=== PATIENT | female | born 1970 | race Caucasian/White ===

== ENCOUNTER 2017-12-30 13:38 | Emergency (ER) | payer BC, MEDICARE ==
--- OUTSIDE RECORDS SUMMARY | 2017-12-30 14:08 | XMS REPORT ---
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 [address] Group Name: [employer] [place] [address] PayID: [id number] Medigap Part B Effective: Policy Number: Aetna(Open Choice) Talib Thompson 2012 [id number] Expires: 2013 Group Number: [id number] [address] PayID: [id number] [place] [address] Medigap Part B Effective: 2013 Policy Number: Melisa [facility] Richard Thompson [id number] Group Number: [id number] [address] [address] Group Name: [place] [address] PayID: [id number] Medicare Primary Effective: Policy Number: Medicare - Bswny Richard Thompson 2006 [id number] Umd PayID: [id number] [address] [place] [address] Problems Date Description Provider Status Onset: 05/27/2012 Rheumatoid arthritis Shawnti R. 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 Social History Type Date Description Comments Marital Status Lives With Spouse Lives With Son 2 sons Celia and Noam, daughter is in [place] Diet Healthy, Well Balanced "sucks shit" she eats toast, yogurt, apple sauce, green jello, pasta with occasional mariya, pizza, mashed potatoes, rice, stir adair vegetables, has a hard time digestiong meat, she does eat eggs, beans Pets several cats currently 4 cats, 1 dog Occupation Disabled Cigarette Use current cigarette smoker less than 5 ciggs daily ETOH Use Denies alcohol use Recreational Drug Use Sporadically uses Marijuana Smoking Patient is a current smoker, smokes every day Allergies, Adverse Reactions, Alerts Date Description Reaction Status Severity Comments 01/30/2012 Penicillins active 01/30/2012 Watts active 01/30/2012 Papaya active 01/30/2012 Bee Sting active 01/30/2012 Humira active 01/30/2012 Enbrel active 01/30/2012 Albuterol active jitters/tachycardia 03/29/2012 Hydrocodone active rash/hives/itchy mouth Medications Medication Date Status Form Strength Qnty SIG Indications Ordering Provider Bethanechol 09/04 Active Tablets 25mg 120ta take 1 K31.84 Shawnti Liv. Chloride bs tablet by popeye Bailey four [employer]ADEMIC ASSISTANT-C times daily - before meals & nightly. Pulmicort 07/16 Active Aerosol 180mcg/Ac 1unit inhale 1 Shawgei Isaura Flexhaler t s puff by popeye Bailey 2 [employer]ADEMIC ASSISTANT-C times per day for asthma Tizanidine HCL 06/02 Active Tablets 4mg 30tab take 1/2-1 M25.512 Angel s tablet by Morgan mouth III, [employer]ADEMIC ASSISTANT-C every 8 hours as needed for muscle spasm Vitamin D 05/21 Active Capsules [id number] 14cap take 1 Satyawgei R. (Ergocalciferol) s capsule by Leo mouth [employer]ADEMIC ASSISTANT-C weekly Acyclovir 12/30 Active Tablets 400mg 90tab take 1 Shawnti R. /2017 s tablet by Leo mouth 3 [employer]ADEMIC ASSISTANT-C times a day Ketoconazole 12/29 Active Cream 2% 60gm apply to B37.9 Satyawnti R. /2016 rash on , breast/abd [employer]IC ASSISTANT-C omen every day as needed Omeprazole 09/[address] 20mg 30cap 1 by mouth Shawnti R. s twice [facility], daily [employer]AD[employer]IC ASSISTANT-C Singulair 06/26 Active Tablets 10mg 30tab Take 1 J45.902 wnti R. s Tablet By Storm, Mouth [employer]ADEMIC ASSISTANT-C Every Night AT Bedtime For Asthma/All ergies Xopenex HFA 11/28 Active Aerosol 45mcg/Act 15uni Take 2 J20.9 wnti R. ts Puffs [facility], Every 4 To ACADEMIC ASSISTANT-C 6 Hours as Needed For Shortness Of Breath , Wheeze Or Cough Flonase Allergy 06/22 Active Suspension 50mcg/Act 48uni use 2 Shawnti R. ts sprays in [facility], each [employer]ADEMIC ASSISTANT-C nostril every day Nebulizer 04/05 Active Device 1unit use with J44.9 wnti R. s albuterol [facility], for [employer]IC ASSISTANT-C breathing dx:j44.9 Soma 03/23 Active Tablets 350mg 60tab 1 by mouth M54.9 Shawnti R. /2014 s two times [facility], a day as [employer]ADEMIC ASSISTANT-C needed muscle spasm Wellbutrin XL 02/01 Active Tablets ER 300mg 30tab Take 1 wnti R. 24HR s Tablet By [facility], Mouth ACADEMIC ASSISTANT-C Every Morning For Depression And Smoking Xopenex 12/05 Active Nebulizer 1.25mg/3M 72ml one vial J20.9 wnti R. L via [facility], nebulizer ACAD[employer]IC ASSISTANT-C every 4 hours if needed for breathing Zofran Odt 11/16 Active Tablets 8mg 60tab take 1 R07.9 Shawnti R. /2014 Dispers s tablet by Storm, mouth 3 [employer]ADEMIC ASSISTANT-C times a day as needed for nausea Levothyroxine 09/25 Active Tablets 25mcg 90tab Take One Shawnti R. s Tablet By Storm, Mouth [employer]ADEMIC ASSISTANT-C Every Day DO Not Take With Vitamins Valacyclovir HCL 04/06 Active Tablets 1gm 21tab 1 by mouth B02.9 Shawnti R. /2013 s three Storm, times ACADEMIC ASSISTANT-C daily for 7 days Ipratropium 03/08 Active Solution 0.02% 150ml one vial J18.9 nti R. via Storm, nebulized [employer] ASSISTANT-C treatment four times a day as needed breathing Bentyl 11/26 Active Tablets 20mg 120ta 1 by mouth wnti R. bs four times Storm, a day as [employer] ASSISTANT-C needed stomach pain/bloat ing Levalbuterol HCL 06/11 Active Nebulizer 1.25mg/3M 25uni use one nti R. L ts vial in Storm, nebulizer [employer]AD[employer]IC ASSISTANT-C q4hr as needed shortness of breath, wheeze Valium 01/29 Active Tablets 5mg 40for 1po twice R ty a day as Storm, needed [employer]AD[employer]IC ASSISTANT-C panic/anxi ety Epipen 2-Tu 01/29 Active Solution 0.3mg/0.3 6unit use if R Auto-Inject ML s needed for Storm, bee sting ACADEMIC ASSISTANT-C Topamax 01/29 Active Tablets 100mg 180ta take 1 R bs tablet by Storm, mouth [employer]ADEMIC ASSISTANT-C twice a day Gabapentin 01/29 Active Capsules 300mg 240ca take 2 ps capsules Storm, by mouth 4 ACADEMIC ASSISTANT-C times a day Tudorza Pressair Active Aerosol 400mcg/Ac bid Perry, t Sarthak FLORES Oxycodone HCL Active Capsules 5mg 10cap 1 by mouth wnti R. s five times [facility], daily for ACADEMIC ASSISTANT-C pain Plaquenil Active Tablets 200mg 2 tabs by Unknown /0000 mouth every day for one week, and then 1 tab by mouth every day after that. Methotrexate Active Solution 50mg/2ML Inject Unknown Sodium (PF) once a week on Thursday. In abdomen. Leflunomide Active Tablets 20mg Take 1 Unknown /0000 Tablet By Mouth Every Day Folic Acid Active Tablets 1mg 1 by mouth Unknown /0000 every day Bactrim DS 12/01 Hx Tablets 800-160mg 20tab 1 by mouth L02.219 wnti R. /2017 s twice a Storm, - day for [employer]IC ASSISTANT-C 12/18 infection Bactrim DS 09/04 Hx Tablets 800-160mg 6tabs 1 by mouth J01.90 Shawnti R. /2017 twice a Storm, - day for [employer]IC ASSISTANT-C 09/14 infection Bactroban 09/04 Hx Cream 2% 30gm apply to J01.90 Shawnti R. /2018 affected Storm, - area three [employer]ADEMIC ASSISTANT-C 12/18 times a day as needed Doxycycline 08/19 Hx Tablets 100mg 20tab 1 tab by J01.90 Kj Hyclate /2017 s mouth [place], - twice a MD 09/04 day Bactroban 07/16 Hx Cream 2% 30gm apply to L66.2 Shawnti R. affected Storm, - area three [employer]ADEMIC ASSISTANT-C 09/04 times a day as needed Flovent HFA 07/09 Hx Aerosol 220mcg/Ac 12uni inhale one Shawnti R. t ts puff by Storm, - mouth [employer]ADEMIC ASSISTANT-C 07/16 twice a day Pulmicort 05/26 Hx Aerosol 180mcg/Ac 1unit inhale 1 Shawnti R. Flexhal t s puff by Storm, - mouth 2 [employer]ADEMIC ASSISTANT-C 07/09 times per day for asthma Bentyl 05/06 Hx Capsules 10mg 120ca 1 by mouth Shawnti R. /2016 ps four times Storm, - a day as ACADEMIC ASSISTANT-C 05/11 needed stomach pain/bloat ing Bactrim DS 11/06 Hx Tablets 800-160mg 20tab 1 by mouth L03.90 Shawnti R. /2017 s twice a Storm, - day for [employer]IC ASSISTANT-C 11/16 infection Ranitidine 150 07/02 Hx Tablets 150mg 60tab 1 by mouth Shawnti R. Maximum Strength s twice Storm, - daily for [employer]ADEMIC ASSISTANT-C 09/05 stomach acid Zyrtec Allergy 06/20 Hx Tablets 10mg 90tab 1 by mouth J30.9 Shawnti R. /2016 s daily for Storm, - allergies ACADEMIC ASSISTANT-C 07/02 Lansoprazole 06/[address] 30mg 30cap 1 po Becca R. s daily..... Storm, - .or PPI of ACADEMIC ASSISTANT-C 09/05 company's choice Omeprazole 06/[address] 40mg 90cap 1 by mouth Becca RSerena s every day Storm, - for [employer]ADEMIC ASSISTANT-C 06/20 gastritis Doxycycline 06/17 Hx Tablets 100mg 20tab 1 tab by J20.9 Angel Hyrachel s mouth Morgan - twice a III, ACADEMIC ASSISTANT-C Prednisone 06/17 Hx Tablets 20mg 20tab 3 by mouth J20.9 Angel s every day Rock - x 3days, 2 III, ACADEMIC ASSISTANT-C 09/05 by mouth every day x 3 days, 1 by mouth every day x 3 days, 1/2 by mouth every day x 4 days Guaifenesin ac 06/17 Hx Syrup 100-10mg/ 200un take 1-2 J20.9 Angel 5ML its teaspoon Morgan - by mouth III, ACADEMIC ASSISTANT-C 09/05 at bedtime for cough Chantix Starting 05/15 Hx Tablets 0.5mg X 60tab one by Becca Carter 11 & 1 mg s mouth Storm, - X 42 twice a ACADEMIC ASSISTANT-C , per package directions Prednisone 05/01 Hx Tablets 20mg 20tab 3 by mouth J20.9 Becca Delarosa s every day Storm, - x 3days, 2 ACADEMIC ASSISTANT-C 05/11 by mouth every day x 3 days, 1 by mouth every day x 3 days, 1/2 by mouth every day x 4 days Cheratussin ac 05/01 Hx Syrup 100-10mg/ 236ml 1 or 2 J20.9 Becca Delarosa 5ML teaspoon Storm, - by mouth ACADEMIC ASSISTANT-C 05/11 q4hr needed cough Nebulizer Kit 04/11 Hx use as Becca Delarosa directed Storm, - ACADEMIC ASSISTANT-C 09/05 Doxycycline 03/06 Hx Tablets 100mg 20tab 1 tab by Becca Steele s mouth Storm, - twice a ACADEMIC ASSISTANT-C Azithromycin 03/03 Hx Tablets 250mg 6tabs take 2 J44.1 Kj tablets by Jordy, - mouth one 05/01 time then take one daily for 4 days Prednisone 02/25 Hx Tablets 20mg 13tab 3 by mouth R09.1 Shawnti R. s every day , - x 2days, 2 ACADEMIC ASSISTANT-C 05/01 by mouth every day x 2 days, 1 by mouth every day x 2 days, 06/02 by mouth every day x 2 days Azithromycin 11/29 Hx Tablets 250mg 6tabs take 2 Rose tablets Jerome, - today then ACADEMIC ASSISTANT-C 03/03 1 tablet daily for the next 4 days Biaxin 11/28 Hx Tablets 500mg 20tab 1 po bid J18.9 Shawnti R. s for 10 , - days, do ACADEMIC ASSISTANT-C 12/08 not take Zofran while on this medication Azithromycin 11/01 Hx Tablets 250mg 6tabs 2 by mouth J06.9 Shawnti R. /2015 today then , - 1 by mouth ACADEMIC ASSISTANT-C 11/11 daily for 4 days Nicotrol 10/10 Hx Inhaler 10mg 168un puff 20 Z72.0 wnti R. its minutes , - every 2-3 ACADEMIC ASSISTANT-C 09/05 hours daily for 12 weeks; then gradually wean down over 12 weeks Ketoconazole 09/27 Hx Cream 2% 60gm apply to B37.9 wnti R. rash on , - breast/abd ACADEMIC ASSISTANT-C 09/05 omen every day as needed Pulmicort 08/05 Hx Suspension 1mg/2ML 1box inhale the wnti R. 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 s daily for , - 10 days ACADEMIC ASSISTANT-C 08/11 for pneumonia Prednisone 08/01 Hx Tablets 20mg 20tab 3 by mouth J20.9 Shawnti R. /2015 s every day Storm, - x 3days, 2 ACADEMIC ASSISTANT-C 08/11 by mouth every day x 3 days, 1 by mouth every day x 3 days, 1/2 by mouth every day x 4 days Cheratussin ac 08/01 Hx Syrup 100-10mg/ 118ml 1 or 2 J20.9 Kj 5ML teaspoon [place], - by mouth MD 05/01 q4hr as needed cough Prednisone 07/06 Hx Tablets 20mg 13tab 3 by mouth J20.9 Shawnti R. s every day Storm, - x 2days, 2 ACADEMIC ASSISTANT-C 07/16 by mouth every day x 2 days, 1 by mouth every day x 2 days, 1/2 by mouth every day x 2 days Guaiatussin ac 07/06 Hx Syrup 100-10mg/ 118ml 1 teaspoon J20.9 Shawnti R. 5ML by mouth Storm, - q4hour as ACADEMIC ASSISTANT-C 07/16 needed cough and sore throat Levaquin 06/29 Hx Tablets 750mg 7tabs 1 po daily wnti R. for 7 days Storm, - for ACADEMIC ASSISTANT-C 08/01 pneumonia /2015 Azithromycin 06/26 Hx Tablets 250mg 6tabs 2 by mouth J18.9 Shawnti R. /2015 today then Storm, - 1 by mouth ACADEMIC ASSISTANT-C 07/06 daily for 4 days for pneumonia Guaiatussin ac 06/26 Hx Syrup 100-10mg/ 118ml 1 teaspoon J20.9 Shawnti R. 5ML by mouth Storm, - q4hour as ACADEMIC ASSISTANT-C 07/06 needed cough and sore throat Prednisone 06/26 Hx Tablets 20mg 13tab 3 by mouth J20.9 Shawnti R. s every day Storm, - x 2days, 2 ACADEMIC ASSISTANT-C 07/06 by mouth every day x 2 days, 1 by mouth every day x 2 days, 1/2 by mouth every day x 2 days Diflucan 06/26 Hx Tablets 100mg 16tab 2 po today Shawnti R. /2015 s then 1 po Storm, - daily for ACADEMIC ASSISTANT-C 07/06 14 Ergocalciferol 04/23 Hx Capsules 23813Chmp 8caps 1 by mouth Shawnti R. twice Storm, - weekly for ACADEMIC ASSISTANT-C 06/17 Azithromycin 03/23 Hx Tablets 250mg 6tabs 2 by mouth Shawnti R. /2014 today then Storm, - 1 by mouth ACADEMIC ASSISTANT-C 04/02 daily for 4 days Acyclovir 01/25 Hx Tablets 400mg 90tab take 1 Shawnti R. s tablet by Storm, - mouth 3 ACADEMIC ASSISTANT-C 09/05 times a day Nystatin 12/26 Hx Powder [id number] 30gm apply to 112.2 Shawnti R. t/GM affected Storm, - area three ACADEMIC ASSISTANT-C 09/05 times day until resolved Ergocalciferol 12/22 Hx Capsules [id number] 8caps 1 by mouth Shawnti R. /2014 twice Storm, - weekly for ACADEMIC ASSISTANT-C 01/21 Prednisone 12/05 Hx Tablets 20mg QS 3 by mouth 466.0 Shawnti R. /2014 every day Storm, - x 2days, 2 ACADEMIC ASSISTANT-C 03/23 by mouth /2014 every day x 2 days, 1 by mouth every day x 2 days, 1/2 by mouth every day x 2 days Levofloxacin 12/05 Hx Tablets 750mg 10tab 1 by mouth 486 Shawnti R. s daily for Storm, - 10 days ACADEMIC ASSISTANT-C 12/15 pneumonia Ergocalciferol 09/25 Hx Capsules 36331Nxzz 8caps 1 by mouth Shawnti R. twice Storm, - weekly for ACADEMIC ASSISTANT-C 10/25 one Levocetirizine 09/21 Hx Tablets 5mg 30tab 1 by mouth J30.9 Shawnti R. Dihydrochloride s every day Storm, - for ACADEMIC ASSISTANT-C 06/20 allergies, replaces zyrtec Clotrimazole 09/21 Hx Cream 2% 21gm 1 616.10 Shawnti R. applicator Storm, - full into ACADEMIC ASSISTANT-C 10/01 the QHS for 3 nights Bupropion HCL ER 08/17 Hx Tablets ER 300mg 30tab 1 by mouth Shawnti R. (XL) 24HR s every Storm, - morning ACADEMIC ASSISTANT-C 02/01 for depression and smoking Prednisone 08/17 Hx Tablets 20mg QS 3 by mouth 466.0 Shawnti R. /2014 every day Storm, - x 2days, 2 ACADEMIC ASSISTANT-C 08/27 by mouth /2014 every day x 2 days, 1 by mouth every day x 2 days, 1/2 by mouth every day x 2 days Lidocaine 04/06 Hx Solution 2% 100ml paint up 053.9 Shawnti R. Viscous to 1 Storm, - teaspoon [facility] 09/05 on sore area three times a day as needed Amitriptyline 12/12 Hx Tablets 25mg 180ta 1 or 2 po 780.52 Shawnti R. HCL bs QHS for Storm, - sleep [facility]- 03/23 Seroquel 12/08 Hx Tablets 50mg 60tab take one 780.52 Shawnti R. s tablet by Leo, - mouth at [facility]- 12/12 bedtime, can increase to 2 tablets before bed if needed for slep and anxiety Carafate 08/21 Hx Tablets 1gm 120ta take 1 Shawnti R. bs tablet by Leo, - mouth 4 ACADEMIC ASSISTANT-C 04/10 times day Prednisone 08/17 Hx Tablets 20mg 21tab take 3 Rose s tablets x Jerome, - 3 days, ACADEMIC ASSISTANT-C 08/17 then tablets x 3 days,then 1 tablet x 3 days, then 1/2 tablet x 3 days. Levofloxacin 08/17 Hx Tablets 750mg 10tab 1 tablet Rose s po qd x 10 Jerome, - days ACADEMIC ASSISTANT-C 08/17 Azithromycin 07/28 Hx Tablets 250mg 6tabs 2 po today 486 Shawnti R. then 1 po Leo, - daily for ACADEMIC ASSISTANT-C 08/17 4 Baclofen 04/15 Hx Tablets 10mg 90tab Take 1 724.5 Shawnti R. s Tablet By Storm, - Mouth 3 ACADEMIC ASSISTANT-C 03/23 Times Day as Needed Trazodone HCL 04/01 Hx Tablets 100mg 180ta 2 po qhs 780.52 Shawnti R. bs for sleep Storm, - and ACADEMIC ASSISTANT-C 12/08 anxeit Omeprazole 03/[address] 20mg 60cap take one Shawnti R. s capsule by Storm, - mouth [employer]ADEMIC ASSISTANT-C 06/19 twice a day before meals Silvadene 03/08 Hx Cream 1% 1tube apply to 942.20 Shawnti R. painful Storm, - area up to ACADEMIC ASSISTANT-C 09/05 times daily if needed Prednisone 03/08 Hx Tablets 20mg QS 3 po qd x 486 Shawnti R. 2days, 2 Storm, - po qd x 2 ACADEMIC ASSISTANT-C 08/17 days, po qd x 2 days, 06/02 po qd x 2 days Atrovent HFA 03/08 Hx Aerosol 17mcg/Act 12.90 2 puffs 486 Shawnti R. 0gm qid for Storm, - breathing ACADEMIC ASSISTANT-C 03/10 Tizanidine HCL 01/19 Hx Tablets 4mg 60tab take one 719.41 s po every 6 M. Manjit, - hours as M.D. 03/23 needed for pain Nystatin 01/07 Hx Cream [id number] 30gm apply thin 616.10 Shawnti R. t/GM layer to Storm, - affected ACADEMIC ASSISTANT-C 12/26 area tid until resolved Align 11/26 Hx Capsules 4mg 30cap one po qd 786.50 Shawnti R. /2012 s Storm, - ACADEMIC ASSISTANT-C 09/05 Tigan 11/26 Hx Capsules 300mg 120ca Take 1 786.50 Shawnti R. ps Capsule By Storm, - Mouth 4 [employer]ADEMIC ASSISTANT-C 11/16 Times Day as Needed For Nausea Promethazine HCL 11/12 Hx Suppository 25mg 12uni 1 pr Q6 HR 786.50 Shawnti R. ts prn nausea Storm, - ACADEMIC ASSISTANT-C 11/26 Flonase 09/03 Hx Suspension 50mcg/Act 48uni Use 2 wnti R. ts Sprays In [facility], - Each ACADEMIC ASSISTANT-C 06/22 Nostril /2016 Every Day Zofran Odt 08/10 Hx Tablets 8mg 60tab 1 po bid wnti R. Dispers s prn nausea , - ACADEMIC ASSISTANT-C 08/10 Zofran Odt 08/10 Hx Tablets 8mg 60tab Take 1 786.50 wnti R. Dispers s Tablet By Storm, - Mouth ACADEMIC ASSISTANT-C 11/12 Twice A Day as Needed For Nausea Robaxin-750 08/10 Hx Tablets 750mg 60tab Take 1 724.5 wnti R. s Tablet By , - Mouth 3 ACADEMIC ASSISTANT-C 04/15 Times A Day as Needed For Muscle Spasm /Tightness Medrol Dosepak 06/11 Hx Tablets 4mg 1Pack take oraly per , - package ACADEMIC ASSISTANT-C 06/21 Guiatuss ac 06/11 Hx Syrup 100-10mg/ 150ml 1 tsp po nti R 5ML q4hr prn , - cough ACADEMIC ASSISTANT-C 08/10 Azithromycin 06/11 Hx Tablets 250mg 6tabs 2 po today . then 1 po [facility], - daily for ACADEMIC ASSISTANT-C 12/17 Tessalon Perles 06/11 Hx Capsules 100mg 60cap 1 or 2 po wnti R. s tid prn Storm, - cough ACADEMIC ASSISTANT-C 01/19 Erythromycin 05/27 Hx Ointment 5mg/GM 1gm opth 372.03 wnti R. ointment , - to right ACADEMIC ASSISTANT-C 12/17 eye times daily for 5 days or until healed Tessalon Perles 05/11 Hx Capsules 100mg 30cap 1 po tid Shawnti R. s prn cough Storm, - ACADEMIC ASSISTANT-C 06/11 Premarin 03/29 Hx Cream 0.625mg/G 30gm 06/02 616.10 Shawnti R. M applicator Storm, - to vaginal ACADEMIC ASSISTANT-C 03/23 area 2- times each week Dilaudid 03/29 Hx Tablets 4mg 20twe 1 po bid 724.5 wnti R. nty prn severe Storm, - pain ACADEMIC ASSISTANT-C 12/08 Rid 03/16 Hx Liquid 0.33-4% 1Bott apply to Shawnti R. le scalp and Storm, - hair, ACADEMIC ASSISTANT-C 01/19 leave in for 10 minutes, rinse then comb hair wiht fine tooth comb. repeat in one week if needed Asmanex 30 03/01 Hx Aerosol 220mcg/In 1unit use 1 493.00 Shawnti R. Metered Doses /2011 h s inhalation Storm, - by mouth ACADEMIC ASSISTANT-C 03/29 every day. rinse mouth after using. Ergocalciferol 02/02 Hx Tablets 50,000Uni 8tabs 1 po twice wnti R. Tablets ts weekly for Storm, - vitamin d ACADEMIC ASSISTANT-C 03/29 deficiency , repeat level in 4 weeks Acyclovir 01/29 Hx Capsules 200mg 180ca 2 po daily nt R. ps Storm, - ACADEMIC ASSISTANT-C 01/25 Bupropion HCL ER 01/29 Hx Tablets ER 150mg 1 po bid wnti R. 12HR Storm, - ACADEMIC ASSISTANT-C 03/29 Zofran Odt 01/29 Hx Tablets 8mg 1 po bid nt R. Dispers Storm, - ACADEMIC ASSISTANT-C 08/10 Leflunomide 01/29 Hx Tablets 20mg 1 po daily wnti R. Storm, - ACADEMIC ASSISTANT-C 11/26 Folic Acid 01/29 Hx Tablets 1mg 1 po qd Shawnti R. Storm, - ACADEMIC ASSISTANT-C 01/19 Xopenex HFA 01/29 Hx Aerosol 45mcg/Act 6unit 2 puffs wnti R. s q4-6hr prn Storm, - shortness ACADEMIC ASSISTANT-C 05/21 of breath, wheeze, cough. Prednisone 01/29 Hx Tablets 20mg 15tab 1 po tid wnti R. s for 5 days Storm, - ACADEMIC ASSISTANT-C 01/19 Lactulose 01/29 Hx Solution 20GM/30ML currently wnti R. taking Storm, - 90ml daily ACADEMIC ASSISTANT-C 01/19 Lac-Hydrin Five 01/29 Hx [facility]otion 5% [facility] Storm, - bid ACADEMIC ASSISTANT-C 09/05 Fluocinonide 01/29 Hx Ointment 0.05% 90uni [facility] Leo, - to ACADEMIC ASSISTANT-C 09/05 affeceted area QHS and cover with gloves/soc ks Trazodone HCL 01/29 Hx Tablets 50mg 90tab Take 06/02 780.51 Shawnti R. s To 1 , - Tablet By ACADEMIC ASSISTANT-C 04/01 Mouth AT Bedtime as Needed Pepcid 01/29 Hx Tablets 20mg 30tab Take 1 Satyawnti R. s Tablet By [facility], - Mouth ACADEMIC ASSISTANT-C 07/02 Every Day For GERD Bethanechol 01/29 Hx Tablets 25mg 120ta take 1 Shawnti R. bs tablet by [facility], - mouth four ACADEMIC ASSISTANT-C 10/06 daily - before meals & nightly. Reglan 01/29 Hx Tablets 10mg 360ta take 1 Shawnti R. bs tablet by Leo, - mouth 4 ACADEMIC ASSISTANT-C 05/21 times day Tizanidine HCL Hx Tablets 4mg 120ta Take 1 06/02 724.5 Shawnti R. /0000 bs Tablets By Storm, - Mouth 3 ACADEMIC ASSISTANT-C 08/10 Times A Day Sucralfate Hx Tablets 1gm 120ta 1 tab po Shawnti R. /0000 bs qid Leo, - ACADEMIC ASSISTANT-C 08/21 Oxycontin Hx Tab ER 12H 10mg 4tabs 1 by mouth Shawnti R. /0000 Abuse-Det twice a Leo, - day for ACADEMIC ASSISTANT-C 12/18 chronic /2018 pain Oxycodone HCL Hx Tablets 5mg Unknown /0000 - 04/10 Bupropion HCL ER 00 Hx Tablets ER 150mg Take 1 Unknown (XL) /0000 24HR Tablet By - Mouth 08/17 Every Day Vitamin D3 Ultra Hx Capsules 5000Unit 1 by mouth Unknown Strength /0000 every - other day 05/21 Erythromycin 00 Hx Tablets 250mg Take 1 Unknown Base /0000 Tablet By - Mouth 4 12/18 Times Day For 14 Days Medications Administered in Office Medication Date Status Form Strength Qnty SIG Indications Ordering Provider TB,Intradermal Administered Injection Lab and (PPD, Mantoux) 015 Office Services TB,Intradermal Administered Injection Shawnti R. (PPD, Mantoux) 015 Storm, ACADEMIC ASSISTANT-C Vitamin B-12 Administered Injection Shawnti R. Injection-To 015 Storm, 1000mcg ACADEMIC ASSISTANT-C Vitamin B-12 Administered Injection Shawnti R. Injection-To 015 Storm, 1000mcg ACADEMIC ASSISTANT-C Vitamin B-12 Administered Injection Shawnti R. Injection-To 015 Storm, 1000mcg ACADEMIC ASSISTANT-C Immunizations CPT Code Status Date Vaccine Lot # [id number] Given 02/27/2017 Pneumovax 23 (PPSV23) 65+ years or high risk 2 to [id number] 62 year old 75844 Given 02/27/2017 Influenza Virus Vaccine, Quadrivalent, 3 Yr > [id number] Quad, Preserv Free 99944 Given 02/26/2016 Influenza Virus Vaccine, Quadrivalent, 3 Yr > Quad, Preserv Free 49314 Given 02/03/2015 Influenza Virus Vaccine, Quadrivalent, 3 Yr > Quad, Preserv Free 78899 Given 03/13/2014 Influenza Virus Vaccine, Quadrivalent, 3 Yr > [id number] Quad, Preserv Free 84487 Given 12/08/2013 Hep B Vaccine Adult, 3 Dose age >20 yrs [id number] 84622 Given 12/08/2013 Zoster Vaccine [id number] 25402 Given 12/08/2013 Hepatitis A, Adult [id number] 04564 Given 04/01/2013 Prevnar-13 Pneumococcal Conjugate Vaccine [id number] 97134 Given 04/01/2013 Influenza Vaccine-Preservative Free 3 Yrs And [id number] Above 44105 Given 01/07/2013 Tdap (Adacel) [id number] 15839 Given 03/29/2012 Influenza Vaccine-Preservative Free 3 Yrs And [id number] Above Vital Signs Date Vital Result Comment 12/18/2017 Weight 188.00 lb Weight in kg's 85.277 BP Systolic 142 mmHg BP Diastolic 72 mmHg Heart Rate 72 /min Body Temperature 98.1 F Respiratory Rate 16 /min O2 % BldC Oximetry 98 % 12/01/2017 Weight 193.00 lb Weight in kg's 87.545 BP Systolic 138 mmHg BP Diastolic 72 mmHg Heart Rate 68 /min Body Temperature 98.1 F Respiratory Rate 14 /min 09/04/2017 Weight 192.00 lb Weight in kg's 87.091 BP Systolic 156 mmHg BP Diastolic 64 mmHg Heart Rate 76 /min Body Temperature 98.8 F Respiratory Rate 17 /min Height 63 inches 5'3" BMI (Body Mass Index) 34.0 kg/m2 O2 % BldC Oximetry 98 % 08/19/2017 Weight 195.50 lb Weight in kg's 88.679 BP Systolic 142 mmHg BP Diastolic 70 mmHg Heart Rate 60 /min Body Temperature 98.7 F Respiratory Rate 16 /min O2 % BldC Oximetry 98 % 07/16/2017 Weight 204.00 lb Weight in kg's 92.534 BP Systolic 120 mmHg BP Diastolic 60 mmHg Heart Rate 92 /min Body Temperature 98.0 F Respiratory Rate 20 /min 06/02/2017 BP Systolic 160 mmHg BP Diastolic 77 mmHg Heart Rate 88 /min Body Temperature 98.7 F O2 % BldC Oximetry 99 % 05/21/2017 Weight 210.00 lb Weight in kg's 95.256 BP Systolic 144 mmHg BP Diastolic 66 mmHg Heart Rate 89 /min Body Temperature 97.8 F Respiratory Rate 18 /min O2 % BldC Oximetry 98 % 04/10/2017 Weight 206.00 lb Weight in kg's 93.442 BP Systolic 140 mmHg BP Diastolic 60 mmHg Heart Rate 88 /min Body Temperature 99.1 F Respiratory Rate 16 /min O2 % BldC Oximetry 98 % 02/27/2017 Weight 216.00 lb Weight in kg's 97.978 BP Systolic 160 mmHg BP Diastolic 72 mmHg Heart Rate 72 /min Body Temperature 99.2 F Respiratory Rate 20 /min O2 % BldC Oximetry 98 % 11/06/2016 Weight 233.00 lb Weight in kg's 105.689 BP Systolic 124 mmHg BP Diastolic 70 mmHg Heart Rate 88 /min Body Temperature 99.1 F Respiratory Rate 20 /min 09/05/2016 Weight 240.00 lb Weight in kg's 108.864 BP Systolic 130 mmHg BP Diastolic 60 mmHg Heart Rate 84 /min Body Temperature 98.6 F Respiratory Rate 16 /min O2 % BldC Oximetry 94 % 06/26/2016 BP Systolic 160 mmHg BP Diastolic 68 mmHg Heart Rate 75 /min Body Temperature 97.8 F Respiratory Rate 16 /min O2 % BldC Oximetry 98 % 06/17/2016 Weight 238.00 lb Weight in kg's 107.957 BP Systolic 150 mmHg BP Diastolic 64 mmHg Heart Rate 91 /min Body Temperature 98.6 F Respiratory Rate 18 /min O2 % BldC Oximetry 95 % 06/06/2016 Weight 243.00 lb Weight in kg's 110.225 BP Systolic 140 mmHg BP Diastolic 70 mmHg Heart Rate 96 /min Body Temperature 99.2 F Respiratory Rate 16 /min O2 % BldC Oximetry 98 % 05/01/2016 BP Systolic 155 mmHg BP Diastolic 55 mmHg Heart Rate 92 /min Body Temperature 98.4 F O2 % BldC Oximetry 98 % 03/03/2016 Weight 237.00 lb Weight in kg's 107.503 BP Systolic 146 mmHg BP Diastolic 74 mmHg Heart Rate 91 /min Body Temperature 98.6 F Respiratory Rate 22 /min O2 % BldC Oximetry 97 % Room air 02/26/2016 Weight 241.00 lb Weight in kg's 109.318 BP Systolic 145 mmHg BP Diastolic 50 mmHg Heart Rate 80 /min Body Temperature 99.8 F O2 % BldC Oximetry 98 % 11/29/2015 Weight 243.00 lb Weight in kg's 110.225 BP Systolic 120 mmHg BP Diastolic 70 mmHg Heart Rate 94 /min Body Temperature 97.5 F O2 % BldC Oximetry 98 % 11/02/2015 Weight 244.00 lb Weight in kg's 110.678 BP Systolic 150 mmHg BP Diastolic 70 mmHg Heart Rate 82 /min Body Temperature 98.9 F O2 % BldC Oximetry 98 % 10/11/2015 Weight 257.00 lb Weight in kg's 116.575 BP Systolic 120 mmHg BP Diastolic 69 mmHg Heart Rate 87 /min Body Temperature 98.7 F O2 % BldC Oximetry 96 % 09/28/2015 Weight 249.00 lb Weight in kg's 112.946 BP Systolic 121 mmHg BP Diastolic 60 mmHg Heart Rate 78 /min Body Temperature 98.1 F O2 % BldC Oximetry 96 % 08/06/2015 Weight 238.00 lb Weight in kg's 107.957 BP Systolic 133 mmHg BP Diastolic 63 mmHg Heart Rate 60 /min Body Temperature 99.5 F O2 % BldC Oximetry 98 % 08/02/2015 Weight 243.00 lb Weight in kg's 110.225 BP Systolic 180 mmHg BP Diastolic 90 mmHg Heart Rate 108 /min Body Temperature 101.8 F O2 % BldC Oximetry 98 % 07/06/2015 Weight 242.00 lb Weight in kg's 109.771 BP Systolic 140 mmHg BP Diastolic 74 mmHg Heart Rate 103 /min Body Temperature 98.4 F O2 % BldC Oximetry 98 % 06/26/2015 Weight 239.00 lb Weight in kg's 108.410 BP Systolic 152 mmHg BP Diastolic 68 mmHg Heart Rate 82 /min Body Temperature 99.3 F O2 % BldC Oximetry 98 % Room air 03/23/2015 Weight 258.00 lb Weight in kg's 117.029 BP Systolic 130 mmHg BP Diastolic 72 mmHg Heart Rate 80 /min Body Temperature 98.6 F 12/26/2014 Weight 246.00 lb Weight in kg's 111.586 BP Systolic 140 mmHg BP Diastolic 70 mmHg Heart Rate 76 /min 12/05/2014 Weight 238.00 lb Weight in kg's 107.957 BP Systolic 160 mmHg BP Diastolic 70 mmHg Heart Rate 86 /min Body Temperature 98.3 F O2 % BldC Oximetry 95 % 09/21/2014 Weight 248.00 lb Weight in kg's 112.493 BP Systolic 136 mmHg BP Diastolic 80 mmHg Heart Rate 80 /min Body Temperature 98.4 F Height 63.5 inches 5'3.50" BMI (Body Mass Index) 43.2 kg/m2 O2 % BldC Oximetry 98 % 08/17/2014 Weight 240.00 lb Weight in kg's 108.864 BP Systolic 124 mmHg BP Diastolic 60 mmHg Heart Rate 78 /min 07/14/2014 Weight 230.00 lb Weight in kg's 104.328 BP Systolic 130 mmHg BP Diastolic 80 mmHg Heart Rate 76 /min 04/06/2014 Weight 234.00 lb Weight in kg's 106.142 BP Systolic 118 mmHg BP Diastolic 68 mmHg Heart Rate 73 /min Body Temperature 98.1 F O2 % BldC Oximetry 98 % 03/13/2014 Weight 235.00 lb Weight in kg's 106.596 BP Systolic 140 mmHg BP Diastolic 70 mmHg Heart Rate 72 /min Body Temperature 98.6 F O2 % BldC Oximetry 99 % 01/17/2014 Weight 230.00 lb Weight in kg's 104.328 BP Systolic 138 mmHg BP Diastolic 54 mmHg Heart Rate 80 /min 12/08/2013 Weight 229.00 lb Weight in kg's 103.874 BP Systolic 116 mmHg BP Diastolic 68 mmHg Heart Rate 60 /min Body Temperature 99.3 F 08/17/2013 Weight 217.00 lb Weight in kg's 98.431 BP Systolic 134 mmHg BP Diastolic 76 mmHg Heart Rate 81 /min Body Temperature 98.6 F O2 % BldC Oximetry 98 % 07/28/2013 Weight 214.00 lb Weight in kg's 97.070 BP Systolic 152 mmHg BP Diastolic 90 mmHg Heart Rate 89 /min Body Temperature 98.2 F Height 63 inches 5'3" BMI (Body Mass Index) 37.9 kg/m2 O2 % BldC Oximetry 98 % 06/17/2013 Weight 210.00 lb Weight in kg's 95.256 BP Systolic 102 mmHg BP Diastolic 64 mmHg Heart Rate 71 /min Body Temperature 97.8 F O2 % BldC Oximetry 98 % 05/02/2013 Weight 209.00 lb Weight in kg's 94.802 BP Systolic 120 mmHg BP Diastolic 80 mmHg Heart Rate 88 /min Body Temperature 97.7 F 04/15/2013 Weight 206.00 lb Weight in kg's 93.442 BP Systolic 140 mmHg BP Diastolic 80 mmHg Heart Rate 88 /min 04/08/2013 Weight 211.00 lb Weight in kg's 95.710 BP Systolic 110 mmHg BP Diastolic 64 mmHg Heart Rate 80 /min 04/01/2013 Weight 210.00 lb Weight in kg's 95.256 BP Systolic 120 mmHg BP Diastolic 0 mmHg Heart Rate 84 /min Body Temperature 98.7 F 03/11/2013 Weight 205.00 lb Weight in kg's 92.988 BP Systolic 114 mmHg BP Diastolic 56 mmHg Heart Rate 76 /min Body Temperature 97.8 F O2 % BldC Oximetry 98 % 03/08/2013 Weight 204.00 lb Weight in kg's 92.534 BP Systolic 124 mmHg BP Diastolic 66 mmHg Heart Rate 60 /min Body Temperature 97.2 F O2 % BldC Oximetry 98 % 02/04/2013 Weight 211.00 lb Weight in kg's 95.710 BP Systolic 118 mmHg BP Diastolic 62 mmHg Heart Rate 60 /min Body Temperature 98.0 F 01/19/2013 Weight 207.00 lb Weight in kg's 93.895 BP Systolic 156 mmHg BP Diastolic 90 mmHg Heart Rate 88 /min Body Temperature 98.6 F 01/07/2013 Weight 206.00 lb Weight in kg's 93.442 BP Systolic 134 mmHg BP Diastolic 84 mmHg Heart Rate 70 /min Body Temperature 99.0 F O2 % BldC Oximetry 98 % 12/17/2012 Weight 206.00 lb Weight in kg's 93.442 BP Systolic 130 mmHg BP Diastolic 70 mmHg Heart Rate 84 /min Body Temperature 99.1 F 11/26/2012 Weight 215.00 lb Weight in kg's 97.524 BP Systolic 144 mmHg BP Diastolic 86 mmHg Heart Rate 53 /min Body Temperature 96.9 F O2 % BldC Oximetry 97 % 11/12/2012 Weight 206.00 lb Weight in kg's 93.442 BP Systolic 150 mmHg BP Diastolic 92 mmHg Heart Rate 84 /min Body Temperature 99.2 F 11/02/2012 Weight 220.00 lb Weight in kg's 99.792 BP Systolic 150 mmHg BP Diastolic 78 mmHg Heart Rate 74 /min Body Temperature 98.9 F 09/15/2012 Weight 214.00 lb Weight in kg's 97.070 BP Systolic 146 mmHg BP Diastolic 84 mmHg Heart Rate 96 /min Body Temperature 98.4 F O2 % BldC Oximetry 98 % 08/19/2012 Weight 216.00 lb Weight in kg's 97.978 BP Systolic 146 mmHg BP Diastolic 72 mmHg Heart Rate 84 /min Body Temperature 98.0 F O2 % BldC Oximetry 98 % 08/10/2012 Weight 214.00 lb Weight in kg's 97.070 BP Systolic 138 mmHg BP Diastolic 78 mmHg Heart Rate 74 /min 06/11/2012 Weight 212.00 lb Weight in kg's 96.163 BP Systolic 130 mmHg BP Diastolic 78 mmHg Heart Rate 80 /min Body Temperature 98.4 F O2 % BldC Oximetry 96 % 05/27/2012 Weight 213.00 lb Weight in kg's 96.617 BP Systolic 122 mmHg BP Diastolic 74 mmHg Heart Rate 88 /min Body Temperature 98.9 F 04/30/2012 Weight 214.00 lb Weight in kg's 97.070 BP Systolic 126 mmHg BP Diastolic 74 mmHg Heart Rate 80 /min 04/13/2012 Weight 212.00 lb Weight in kg's 96.163 BP Systolic 152 mmHg BP Diastolic 84 mmHg Heart Rate 88 /min Body Temperature 98.2 F 03/29/2012 Weight 217.00 lb Weight in kg's 98.431 BP Systolic 170 mmHg BP Diastolic 78 mmHg Heart Rate 88 /min 03/01/2012 Weight 219.00 lb Weight in kg's 99.338 BP Systolic 138 mmHg BP Diastolic 80 mmHg Heart Rate 89 /min O2 % BldC Oximetry 99 % 01/30/2012 Weight 213.00 lb Weight in kg's 96.617 BP Systolic 130 mmHg BP Diastolic 80 mmHg Heart Rate 92 /min Body Temperature 98.5 F Height 63 inches 5'3" BMI (Body Mass Index) 37.7 kg/m2 Results Test Date Test Result H/L Range Note CBC Auto Diff 12/01/2017 White Blood Count 8.9 10^3/uL 3.5-10.8 Red Blood Count 3.69 10^6/uL Low 4.00-5.40 Hemoglobin 13.0 g/dL 12.0-16.0 Hematocrit 39 % 35-47 Mean Corpuscular Volume 106 fL High 80-97 1 Mean Corpuscular Hemoglobin 35 pg High 27-31 Mean Corpuscular HGB Conc 33 g/dL 31-36 Red Cell Distribution Width 18 % High 10.5-15 Platelet Count 234 10^3/uL 150-450 Mean Platelet Volume 9.3 um3 7.4-10.4 Abs Neutrophils 5.1 10^3/uL 1.5-7.7 Abs Lymphocytes 2.7 10^3/uL 1.0-4.8 Abs Monocytes 0.6 10^3/uL 0-0.8 Abs Eosinophils 0.4 10^3/uL 0-0.6 Abs Basophils 0.1 10^3/uL 0-0.2 Abs Nucleated RBC 0 10^3/uL Granulocyte % 56.9 % 38-83 Lymphocyte % 30.5 % 25-47 Monocyte % 7.2 % High 0-7 Eosinophil % 4.6 % 0-6 Basophil % 0.8 % 0-2 Nucleated Red Blood Cells % 0 Comp Metabolic Panel 12/01/2017 Sodium 141 mmol/L 135-145 Potassium 4.1 mmol/L 3.5-5.0 Chloride 108 mmol/L 101-111 Co2 Carbon Dioxide 24 mmol/L 22-32 Anion Gap 9 mmol/L 2-11 Glucose 93 mg/dL 70-100 Blood Urea Nitrogen 4 mg/dL Low 6-24 Creatinine 0.92 mg/dL 0.51-0.95 BUN/Creatinine Ratio 4.3 Low 8-20 Calcium 8.8 mg/dL 8.6-10.3 Total Protein 7.4 g/dL 6.4-8.9 Albumin 3.8 g/dL 3.2-5.2 Globulin 3.6 g/dL 2-4 Albumin/Globulin Ratio 1.1 1-3 Total Bilirubin 0.30 mg/dL 0.2-1.0 Alkaline Phosphatase 98 U/L 34-104 Alt 18 U/L 7-52 Ast 20 U/L 13-39 Egfr Non- 64.9 >60 Egfr 78.5 >60 2 Lipid Profile (Trig/Chol/HDL) 12/01/2017 Triglycerides 118 mg/dL 3 Cholesterol 159 mg/dL 4 HDL Cholesterol 37.4 mg/dL 5 LDL Cholesterol 98 mg/dL 6 Laboratory test finding 12/01/2017 TSH (Thyroid Stim Horm) 1.82 mcIU/mL 0.34-5.60 7 Hemoglobin A1c (Glyco HGB) 5.0 % 4.0-5.6 8 Comp Metabolic Panel 06/09/2017 Sodium 137 mmol/L 133-145 Potassium 4.1 mmol/L 3.5-5.0 Chloride 108 mmol/L 101-111 Co2 Carbon Dioxide 20 mmol/L Low 22-32 Anion Gap 9 mmol/L 2-11 Glucose 90 mg/dL 70-100 Blood Urea Nitrogen 5 mg/dL Low 6-24 Creatinine 0.78 mg/dL 0.51-0.95 BUN/Creatinine Ratio 6.4 Low 8-20 Calcium 9.2 mg/dL 8.6-10.3 Total Protein 8.3 g/dL 6.4-8.9 Albumin 3.9 g/dL 3.2-5.2 Globulin 4.4 g/dL High 2-4 Albumin/Globulin Ratio 0.9 Low 1-3 Total Bilirubin 0.40 mg/dL 0.2-1.0 Alkaline Phosphatase 81 U/L 34-104 Alt 12 U/L 7-52 Ast 19 U/L 13-39 Egfr Non- 78.8 >60 Egfr 101.4 >60 9 Laboratory test finding 06/09/2017 C Reactive Protein 5.83 mg/L High < 5.00 10 CBC Auto Diff 06/09/2017 White Blood Count 14.5 10^3/uL High 3.5-10.8 Red Blood Count 4.06 10^6/uL 4.0-5.4 Hemoglobin 13.9 g/dL 12.0-16.0 Hematocrit 42 % 35-47 Mean Corpuscular Volume 103 fL High 80-97 Mean Corpuscular Hemoglobin 34 pg High 27-31 Mean Corpuscular HGB Conc 33 g/dL 31-36 Red Cell Distribution Width 16 % High 10.5-15 Platelet Count 330 10^3/uL 150-450 Mean Platelet Volume 9 um3 7.4-10.4 Abs Neutrophils 8.0 10^3/uL High 1.5-7.7 Abs Lymphocytes 5.2 10^3/uL High 1.0-4.8 Abs Monocytes 0.6 10^3/uL 0-0.8 Abs Eosinophils 0.4 10^3/uL 0-0.6 Abs Basophils 0.4 10^3/uL High 0-0.2 Abs Nucleated RBC 0 10^3/uL Granulocyte % 55.0 % 38-83 Lymphocyte % 35.7 % 25-47 Monocyte % 4.1 % 1-9 Eosinophil % 2.7 % 0-6 Basophil % 2.5 % High 0-2 Nucleated Red Blood Cells % 0.1 Laboratory test finding 06/09/2017 Erythrocyte Sed Rate 65 mm/Hr High 0- 14 11 Flu Test A, B, Or A & B,Binaxn 06/17/2016 Influenza A Antigen neg Influenza B Antigen neg Urine DIP 06/06/2016 Leukocytes TRACE Neg Urine Nitrites NEG Neg Urobilinogen NORM Norm Total Protein, Urine NEG Neg Urine pH 5 5-6 Urine Blood ABOUT 50 Neg Specific [place] 1.015 1.01-1.02 Urine Ketones NEG Neg Urine Bilirubin NEG Neg Urine Glucose NORM Norm Comp Metabolic Panel 02/14/2016 Sodium 137 mmol/L 133-145 Potassium 4.1 mmol/L 3.5-5.0 Chloride 108 mmol/L 101-111 Co2 Carbon Dioxide 22 mmol/L 22-32 Anion Gap 7 mmol/L 2-11 Glucose 83 mg/dL 70-100 Blood Urea Nitrogen 8 mg/dL 6-24 Creatinine 0.79 mg/dL 0.51-0.95 BUN/Creatinine Ratio 10.1 8-20 Calcium 8.7 mg/dL 8.6-10.3 Total Protein 7.3 g/dL 6.4-8.9 Albumin 3.7 g/dL 3.2-5.2 Globulin 3.6 g/dL 2-4 Albumin/Globulin Ratio 1.0 1-3 Total Bilirubin 0.30 mg/dL 0.2-1.0 Alkaline Phosphatase 101 U/L 34-104 Alt 15 U/L 7-52 Ast 17 U/L 13-39 Egfr Non- 78.0 >60 Egfr 100.3 >60 12 Laboratory test finding 02/14/2016 C Reactive Protein 39.47 mg/L High < 5.00 13 CBC Auto Diff 02/14/2016 White Blood Count 13.5 10^3/uL High 3.5-10.8 Red Blood Count 4.13 10^6/uL 4.0-5.4 Hemoglobin 13.2 g/dL 12.0-16.0 Hematocrit 40 % 35-47 Mean Corpuscular Volume 98 fL High 80-97 Mean Corpuscular Hemoglobin 32 pg High 27-31 Mean Corpuscular HGB Conc 33 g/dL 31-36 Red Cell Distribution Width 19 % High 10.5-15 Platelet Count 235 10^3/uL 150-450 Mean Platelet Volume 9 um3 7.4-10.4 Abs Neutrophils 7.5 10^3/uL 1.5-7.7 Abs Lymphocytes 4.5 10^3/uL 1.0-4.8 Abs Monocytes 1.0 10^3/uL High 0-0.8 Abs Eosinophils 0.3 10^3/uL 0-0.6 Abs Basophils 0.2 10^3/uL 0-0.2 Abs Nucleated RBC 0.01 10^3/uL Granulocyte % 55.6 % 38-83 Lymphocyte % 33.5 % 25-47 Monocyte % 7.2 % 1-9 Eosinophil % 2.4 % 0-6 Basophil % 1.3 % 0-2 Nucleated Red Blood Cells % 0.1 Laboratory test finding 02/14/2016 Erythrocyte Sed Rate 69 mm/Hr High 0- 14 Immunoglobulin G TNP () 14 Immunoglobulin A 781 mg/dL 61 - 356 15 Igg Subclasses 02/14/2016 Total IgG 1470 mg/dL 767 - 1590 Immunoglobulin G1 1090 mg/dL 341 - 894 Immunoglobulin G2 248 mg/dL 171 - 632 Immunoglobulin G3 66.8 mg/dL 16 Immunoglobulin G4 57.8 mg/dL 17 S.Pneumoniae Igg AB 23 02/14/2016 S. pneumoniae Type 1 IgG 4.6 g/mL >= 2.3 Serotyp AB S. pneumoniae Type 2 IgG AB 1.4 g/mL >=1.0 S. pneumoniae Type 3 IgG AB 2.0 g/mL >=1.8 S. pneumoniae Type 4 IgG AB 2.6 g/mL >=0.6 S. pneumoniae Type 5 IgG AB 8.7 g/mL >=10.7 S. pneumoniae Type 8 IgG AB 0.3 g/mL >=2.9 S. pneumoniae Type 9N IgG AB 0.7 g/mL >=9.2 S. pneumoniae Type 12F IgG AB 0.1 g/mL >=0.6 S. pneumoniae Type 14 IgG AB 1.0 g/mL >=7.0 S. pneumoniae Type 17F IgG AB 0.9 g/mL >=7.8 S. pneumoniae Type 19F IgG AB 8.3 g/mL >=15.0 S. pneumoniae Type 20 IgG AB 0.3 g/mL >=1.3 S. pneumoniae Type 22F IgG AB 4.0 g/mL >=7.2 S. pneumoniae Type 23F IgG AB 17.6 g/mL >=8.0 S. pneumoniae Type 6B IgG AB 123.7 g/mL >=4.7 S. pneumoniae Type 10A IgG AB 0.9 g/mL >=2.9 S. pneumoniae Type 11A IgG AB 0.3 g/mL >=2.4 S. pneumoniae Type 7F IgG AB 3.5 g/mL >=3.2 S. pneumoniae Type 15B IgG AB 0.7 g/mL >=3.3 S. pneumoniae Type 18C IgG AB 1.3 g/mL >=3.3 S. pneumoniae Type 19A IgG AB 26.3 g/mL >=17.1 S. pneumoniae Type 9V IgG AB 3.1 g/mL >=2.6 S. pneumoniae Type 33F IgG AB 0.7 g/mL >=1.7 18 Laboratory test finding 11/22/2015 TSH (Thyroid Stimulating 1.99 ?IU/mL 0.34-5.60 Horm) Vitamin D Total 25(Oh) 36.4 ng/mL 30-50 Laboratory test finding 10/28/2015 Troponin I 0.01 ng/mL <0.03 19 Urinalysis Profile 10/28/2015 Urine Color Straw Urine Appearance Clear Urine Specific [place] 1.006 Low 1.010-1.030 Urine pH 6.0 5-9 Urine Urobilinogen Negative Negative Urine Ketones Negative Negative Urine Protein Negative Negative Urine Leukocytes Negative Negative Urine Blood 1+ Negative Urine Nitrite Negative Negative Urine Bilirubin Negative Negative Urine Glucose Negative Negative Urine White Blood Cell Trace(0-5/hpf) Absent Urine Red Blood Cell Trace(0-2/hpf) Absent Urine Bacteria Absent Absent Urine Squamous Epithelial Cell Present Absent Comp Metabolic Panel 10/28/2015 Sodium 136 mmol/L 133-145 Potassium 3.6 mmol/L 3.5-5.0 Chloride 106 mmol/L 101-111 Co2 Carbon Dioxide 22 mmol/L 22-32 Anion Gap 8 mmol/L 2-11 Glucose 102 mg/dL High 70-100 Blood Urea Nitrogen 7 mg/dL 6-24 Creatinine 0.84 mg/dL 0.51-0.95 BUN/Creatinine Ratio 8.3 8-20 Calcium 8.9 mg/dL 8.6-10.3 Total Protein 8.1 g/dL 6.4-8.9 Albumin 4.0 g/dL 3.2-5.2 Globulin 4.1 g/dL High 2-4 Albumin/Globulin Ratio 1.0 1-3 Total Bilirubin 0.20 mg/dL 0.2-1.0 Alkaline Phosphatase 95 U/L 34-104 Alt 14 U/L 7-52 Ast 16 U/L 13-39 Egfr Non- 72.7 >60 Egfr 93.5 >60 20 Laboratory test finding 10/28/2015 CRP High Sensitivity 39.87 mg/L 21 Troponin I 0.01 ng/mL <0.03 22 B-Type Natriuretic Peptide BNP 59 pg/mL 23 CBC Auto Diff 10/28/2015 White Blood Count 18.5 10^3/uL High 3.5-10.8 Red Blood Count 4.10 10^6/uL 4.0-5.4 Hemoglobin 13.1 g/dL 12.0-16.0 Hematocrit 40 % 35-47 Mean Corpuscular Volume 97 fL 80-97 Mean Corpuscular Hemoglobin 32 pg High 27-31 Mean Corpuscular HGB Conc 33 g/dL 31-36 Red Cell Distribution Width 19 % High 10.5-15 Platelet Count 336 10^3/uL 150-450 Mean Platelet Volume 8 um3 7.4-10.4 Abs Neutrophils 13.4 10^3/uL High 1.5-7.7 Abs Lymphocytes 3.8 10^3/uL 1.0-4.8 Abs Monocytes 1.0 10^3/uL High 0-0.8 Abs Eosinophils 0.2 10^3/uL 0-0.6 Abs Basophils 0.2 10^3/uL 0-0.2 Abs Nucleated RBC 0.01 10^3/uL Granulocyte % 72.6 % 38-83 Lymphocyte % 20.2 % Low 25-47 Monocyte % 5.2 % 1-9 Eosinophil % 0.8 % 0-6 Basophil % 1.2 % 0-2 Nucleated Red Blood Cells % 0.1 Laboratory test finding 10/28/2015 Erythrocyte Sed Rate 86 mm/Hr High 0- 14 Laboratory test finding 10/17/2015 Blood Urea Nitrogen BUN 5 mg/dL Low 6- 24 Creatinine 10/17/2015 Creatinine 0.83 mg/dL 0.51-0.95 Egfr Non- 73.7 >60 Egfr 94.8 >60 24 Rapid Influenza A & B 08/03/2015 Influenza A Molecular NEGATIVE Negative 25 Antigen Influenza B Molecular NEGATIVE Negative CBC Auto Diff 08/03/2015 White Blood Count 16.2 10^3/uL High 3.5-10.8 Red Blood Count 3.87 10^6/uL Low 4.0-5.4 Hemoglobin 12.2 g/dL 12.0-16.0 Hematocrit 37 % 35-47 Mean Corpuscular Volume 96 fL 80-97 Mean Corpuscular Hemoglobin 32 pg High 27-31 Mean Corpuscular HGB Conc 33 g/dL 31-36 Red Cell Distribution Width 15 % 10.5-15 Platelet Count 340 10^3/uL 150-450 Mean Platelet Volume 8 um3 7.4-10.4 Abs Neutrophils 13.8 10^3/uL High 1.5-7.7 Abs Lymphocytes 1.6 10^3/uL 1.0-4.8 Abs Monocytes 0.7 10^3/uL 0-0.8 Abs Eosinophils 0 10^3/uL 0-0.6 Abs Basophils 0.1 10^3/uL 0-0.2 Abs Nucleated RBC 0.02 10^3/uL Granulocyte % 85.3 % High 38-83 Lymphocyte % 9.9 % Low 25-47 Monocyte % 4.4 % 1-9 Eosinophil % 0 % 0-6 Basophil % 0.4 % 0-2 Nucleated Red Blood Cells % 0.1 Laboratory test finding 08/03/2015 Lactic Acid 1.0 mmol/L 0.5-2.0 26 Comp Metabolic Panel 08/03/2015 Sodium 138 mmol/L 133-145 Potassium 3.5 mmol/L 3.5-5.0 Chloride 110 mmol/L 101-111 Co2 Carbon Dioxide 19 mmol/L Low 22-32 Anion Gap 9 mmol/L 2-11 Glucose 136 mg/dL High 70-100 Blood Urea Nitrogen 10 mg/dL 6-24 Creatinine 0.71 mg/dL 0.51-0.95 BUN/Creatinine Ratio 14.1 8-20 Calcium 9.5 mg/dL 8.6-10.3 Total Protein 8.3 g/dL 6.4-8.9 Albumin 3.8 g/dL 3.2-5.2 Globulin 4.5 g/dL High 2-4 Albumin/Globulin Ratio 0.8 Low 1-3 Total Bilirubin 0.50 mg/dL 0.2-1.0 Alkaline Phosphatase 83 U/L 34-104 Alt 15 U/L 7-52 Ast 15 U/L 13-39 Egfr Non- 88.2 >60 Egfr 113.5 >60 27 Laboratory test finding 08/03/2015 Troponin I 0.01 ng/mL <0.03 28 Amylase 19 U/L Low 29-103 Lipase 10 U/L Low 11.0-82.0 Blood Culture SEE RESULT BELOW 29 Laboratory test finding 07/14/2015 Erythrocyte Sed Rate 74 mm/Hr High 0- 14 CBC Auto Diff 07/14/2015 White Blood Count 21.6 10^3/uL High 3.5-10.8 Red Blood Count 4.53 10^6/uL 4.0-5.4 Hemoglobin 13.8 g/dL 12.0-16.0 Hematocrit 44 % 35-47 Mean Corpuscular Volume 96 fL 80-97 Mean Corpuscular Hemoglobin 31 pg 27-31 Mean Corpuscular HGB Conc 32 g/dL 31-36 Red Cell Distribution Width 16 % High 10.5-15 Platelet Count 345 10^3/uL 150-450 Mean Platelet Volume 8 um3 7.4-10.4 Abs Neutrophils 14.1 10^3/uL High 1.5-7.7 Abs Lymphocytes 6.4 10^3/uL High 1.0-4.8 Abs Monocytes 0.9 10^3/uL High 0-0.8 Abs Eosinophils 0 10^3/uL 0-0.6 Abs Basophils 0.2 10^3/uL 0-0.2 Abs Nucleated RBC 0.01 10^3/uL Granulocyte % 65.3 % 38-83 Lymphocyte % 29.7 % 25-47 Monocyte % 3.9 % 1-9 Eosinophil % 0.1 % 0-6 Basophil % 1.0 % 0-2 Nucleated Red Blood Cells % 0 Laboratory test finding 07/14/2015 C Reactive Protein 11.42 mg/L High < 5.00 30 Comp Metabolic Panel 07/14/2015 Sodium 136 mmol/L 133-145 Potassium 3.7 mmol/L 3.5-5.0 Chloride 105 mmol/L 101-111 Co2 Carbon Dioxide 22 mmol/L 22-32 Anion Gap 9 mmol/L 2-11 Glucose 97 mg/dL 70-100 Blood Urea Nitrogen 9 mg/dL 6-24 Creatinine 0.80 mg/dL 0.51-0.95 BUN/Creatinine Ratio 11.3 8-20 Calcium 9.3 mg/dL 8.6-10.3 Total Protein 8.5 g/dL 6.4-8.9 Albumin 4.0 g/dL 3.2-5.2 Globulin 4.5 g/dL High 2-4 Albumin/Globulin Ratio 0.9 Low 1-3 Total Bilirubin 0.30 mg/dL 0.2-1.0 Alkaline Phosphatase 94 U/L 34-104 Alt 16 U/L 7-52 Ast 14 U/L 13-39 Egfr Non- 76.9 >60 Egfr 98.9 >60 31 Laboratory test finding 04/20/2015 TSH (Thyroid Stimulating 3.50 ?IU/mL 0.34-5.60 Horm) Vitamin D Total 25(Oh) 23.1 ng/mL Low 30-50 Laboratory test 03/23/2015 Strep Screen NEG Neg finding Laboratory test 12/26/2014 Culture Genital & SEE RESULT BELOW 32 finding Sensitivity Laboratory test 12/22/2014 TSH (Thyroid 2.09 ?IU/mL 0.34-5.60 finding Stimulating Horm) Vitamin D Total 25(Oh) 25.6 ng/mL Low 30-50 Laboratory test finding 09/21/2014 Vitamin B12 > 1450 pg/mL High 180-914 33 Vitamin D Total 25(Oh) 16.3 ng/mL Low 30-50 TSH (Thyroid Stimulating Horm) 6.48 IU/mL High 0.34-5.60 CBC Auto Diff 09/21/2014 White Blood Count 11.7 10^3/uL High 4.8-10.8 Red Blood Count 4.34 10^6/uL 4.0-5.4 Hemoglobin 14.0 g/dL 12.0-16.0 Hematocrit 42 % 35-47 Mean Corpuscular Volume 97 fL 80-97 Mean Corpuscular Hemoglobin 32 pg High 27-31 Mean Corpuscular HGB Conc 33 g/dL 31-36 Red Cell Distribution Width 17 % High 10.5-15 Platelet Count 234 10^3/uL 150-450 Mean Platelet Volume 10 um3 7.4-10.4 Abs Neutrophils 5.1 10^3/uL 1.5-7.7 Abs Lymphocytes 5.1 10^3/uL High 1.0-4.8 Abs Monocytes 0.7 10^3/uL 0-0.8 Abs Eosinophils 0.6 10^3/uL 0-0.6 Abs Basophils 0.2 10^3/uL 0-0.2 Abs Nucleated RBC 0.02 10^3/uL Granulocyte % 43.4 % 38-83 Lymphocyte % 43.8 % 25-47 Monocyte % 6.4 % 1-9 Eosinophil % 4.9 % 0-6 Basophil % 1.5 % 0-2 Nucleated Red Blood Cells % 0.1 Laboratory test finding 09/21/2014 Pathologist Review (SEE NOTE) 34 Laboratory test finding 09/21/2014 Cytology RUN DATE: 09/22/ <SEE 35 NOTE> Human Papilloma Virus Rna Negative Negative 36 Urine Culture And 06/17/2013 Urine Culture (SEE NOTE) 37 Sensitivities GC/Chlamydia Amplified Rna 06/17/2013 GC/Chlamydia Rna (SEE NOTE) 38 Laboratory test finding 06/07/2013 Lactic Acid 2.9 mmol/L High 0.5-1.6 39 Serum Negative Negative 40 Comp Metabolic Panel 06/07/2013 Sodium 133 mmol/L 133-145 Potassium 3.9 mmol/L 3.5-5.0 Chloride 103 mmol/L 101-111 Co2 Carbon Dioxide 26.0 mmol/L 22-32 Anion Gap 4.0 mmol/L 2-11 Glucose 109 mg/dL High 70-100 Blood Urea Nitrogen 8 mg/dL 6-24 Creatinine 0.80 mg/dL 0.50-1.40 BUN/Creatinine Ratio 10.0 8-20 Calcium 8.4 mg/dL 8.1-9.9 Total Protein 8.1 g/dL 6.2-8.1 Albumin 3.7 g/dL 3.6-5.4 Globulin 4.4 g/dL High 2-4 Albumin/Globulin Ratio 0.8 Low 1-3 Total Bilirubin 0.3 mg/dL Low 0.4-1.5 Alkaline Phosphatase 78 U/L 30-110 Alt 24 U/L 14-54 Ast 46 U/L High 12-42 Egfr Non- 77.9 >60 Egfr 100.2 >60 41 Laboratory test finding 06/07/2013 Activated Partial 28.0 seconds 24.0- 36.1 Thrombo Time Inr/Protime 06/07/2013 Inr 0.95 0.85-1.06 CBC Auto Diff 06/07/2013 White Blood Count 19.9 10^3/uL High 4.8-10.8 Red Blood Count 3.93 10^6/uL Low 4.0-5.4 Hemoglobin 12.2 g/dL 12.0-16.0 Hematocrit 38 % 35-47 Mean Corpuscular Volume 97 fL 80-97 Mean Corpuscular Hemoglobin 31 pg 27-31 Mean Corpuscular HGB Conc 32 g/dL 31-36 Red Cell Distribution Width 15 % 10.5-15 Platelet Count 225 10^3/uL 150-450 Mean Platelet Volume 9 um3 7.4-10.4 Abs Neutrophils 16.3 10^3/uL High 1.5-7.7 Abs Lymphocytes 2.5 10^3/uL 1.0-4.8 Abs Monocytes 1.0 10^3/uL High 0-0.8 Abs Eosinophils 0 10^3/uL 0-0.6 Abs Basophils 0.1 10^3/uL 0-0.2 Abs Nucleated RBC 0 10^3/uL Granulocyte % 81.9 % 38-83 Lymphocyte % 12.4 % Low 25-47 Monocyte % 5.0 % 1-9 Eosinophil % 0 % 0-6 Basophil % 0.7 % 0-2 Nucleated Red Blood Cells % 0 Urine Microscopic 06/07/2013 Urine WBC 1+ (<10 /hpf) None Seen Urine RBC 1+ (<3 /hpf) None Seen Urine Mucus Present /lpf Absent Urine Epithelial Cells 1+ Squamous /hpf None Seen Bacteria Urine None Seen None Seen Urinalysis 06/07/2013 Urine Color Yellow Urine Appearance Clear Urine Specific [place] 1.016 1.010-1.030 Urine Esterase Negative Negative Urine Nitrate Negative Negative Urine Urobilinogen Negative E.U./dL Negative Urine Protein Negative mg/dL Negative Urine pH 7.0 5-9 Urine Blood Trace Negative Urine Ketones Negative mg/dL Negative Urine Bilirubin Negative Negative Urine Glucose Negative mg/dL Negative Laboratory test 04/08/2013 Surgical Pathology RUN DATE: finding <SEE NOTE> Wound Culture/Sensi 04/01/2013 Wound/Misc (SEE NOTE) 43 Culture-Gram Stain CBC Auto Diff 02/28/2013 White Blood Count 15.6 10^3/uL High 4.8-10.8 Red Blood Count 3.97 10^6/uL Low 4.0-5.4 Hemoglobin 12.4 g/dL 12.0-16.0 Hematocrit 39 % 35-47 Mean Corpuscular Volume 97 fL 80-97 Mean Corpuscular Hemoglobin 31 pg 27-31 Mean Corpuscular HGB Conc 32 g/dL 31-36 Red Cell Distribution Width 15 % 10.5-15 Platelet Count 211 10^3/uL 150-450 Mean Platelet Volume 9 um3 7.4-10.4 Abs Neutrophils 11.3 10^3/uL High 1.5-7.7 Abs Lymphocytes 3.3 10^3/uL 1.0-4.8 Abs Monocytes 0.7 10^3/uL 0-0.8 Abs Eosinophils 0.2 10^3/uL 0-0.6 Abs Basophils 0.2 10^3/uL 0-0.2 Abs Nucleated RBC 0 10^3/uL Comp Metabolic Panel 02/28/2013 Sodium 139 mmol/L 133-145 Potassium 3.4 mmol/L Low 3.5-5.0 Chloride 109 mmol/L 101-111 Co2 Carbon Dioxide 22.0 mmol/L 22-32 Anion Gap 8.0 mmol/L 2-11 Glucose 88 mg/dL 70-100 Blood Urea Nitrogen 8 mg/dL 6-24 Creatinine 0.70 mg/dL 0.50-1.40 BUN/Creatinine Ratio 11.4 8-20 Calcium 8.8 mg/dL 8.1-9.9 Total Protein 7.5 g/dL 6.2-8.1 Albumin 3.5 g/dL Low 3.6-5.4 Globulin 4.0 g/dL 2-4 Albumin/Globulin Ratio 0.9 Low 1-3 Total Bilirubin 0.7 mg/dL 0.4-1.5 Alkaline Phosphatase 63 U/L 30-110 Alt 20 U/L 14-54 Ast 23 U/L 12-42 Egfr Non- 90.9 >60 Egfr 116.9 >60 44 Laboratory test finding 02/28/2013 Serum Negative Negative 45 Manual Differential 02/28/2013 Neutrophil % 65 % 38-83 Band % 1 % 0-8 Lymphocytes % 27 % 25-47 Monocytes % 4 % 0-13 Eosinophils % 3 % 0-6 RBC Morphology Normal Normal Laboratory test 12/15/2012 D Dimer Quantitative < 200 ng/mL Less Than 230 46 finding C Reactive Protein 0.6 mg/dL High Less than 0.5 Manual Differential 12/15/2012 Neutrophil % 39 % 38-83 Lymphocytes % 53 % High 25-47 Monocytes % 7 % 0-13 Reactive Lymph % 1 % 0-6 RBC Morphology Normal Normal CBC Auto Diff 12/15/2012 White Blood Count 12.8 10^3/uL High 4.8-10.8 Red Blood Count 4.24 10^6/uL 4.0-5.4 Hemoglobin 13.5 g/dL 12.0-16.0 Hematocrit 41 % 35-47 Mean Corpuscular Volume 97 fL 80-97 Mean Corpuscular Hemoglobin 32 pg High 27-31 Mean Corpuscular HGB Conc 33 g/dL 31-36 Red Cell Distribution Width 14 % 10.5-15 Platelet Count 205 10^3/uL 150-450 Mean Platelet Volume 9 um3 7.4-10.4 Abs Neutrophils 4.8 10^3/uL 1.5-7.7 Abs Lymphocytes 6.8 10^3/uL High 1.0-4.8 Abs Monocytes 0.8 10^3/uL 0-0.8 Abs Eosinophils 0.3 10^3/uL 0-0.6 Abs Basophils 0.1 10^3/uL 0-0.2 Abs Nucleated RBC 0 10^3/uL Laboratory test finding 12/15/2012 Troponin I 0.01 ng/mL 0-0.06 47 Comp Metabolic Panel 12/15/2012 Sodium 140 mmol/L 133-145 Potassium 3.4 mmol/L Low 3.5-5.0 Chloride 113 mmol/L High 101-111 Co2 Carbon Dioxide 22.0 mmol/L 22-32 Anion Gap 5.0 mmol/L 2-11 Glucose 86 mg/dL 70-100 Blood Urea Nitrogen 9 mg/dL 6-24 Creatinine 0.70 mg/dL 0.50-1.40 BUN/Creatinine Ratio 12.9 8-20 Calcium 8.4 mg/dL 8.1-9.9 Total Protein 7.0 g/dL 6.2-8.1 Albumin 3.5 g/dL Low 3.6-5.4 Globulin 3.5 g/dL 2-4 Albumin/Globulin Ratio 1.0 1-3 Total Bilirubin 0.5 mg/dL 0.4-1.5 Alkaline Phosphatase 70 U/L 30-110 Alt 14 U/L 14-54 Ast 16 U/L 12-42 Egfr Non- 90.9 >60 Egfr 116.9 >60 48 Fecal Lactoferrin (Stool 11/13/2012 Fecal Lactoferrin (Stool (SEE NOTE) 49 WBC) WBC) Laboratory test finding 11/13/2012 Lactic Acid 1.0 mmol/L 0.5-1.6 Lipase 24 U/L 22-51 C Reactive Protein 0.6 mg/dL High Less than 0.5 Comp Metabolic Panel 11/13/2012 Sodium 139 mmol/L 133-145 Potassium 3.5 mmol/L 3.5-5.0 Chloride 110 mmol/L 101-111 Co2 Carbon Dioxide 21.0 mmol/L Low 22-32 Anion Gap 8.0 mmol/L 2-11 Glucose 91 mg/dL 70-100 Blood Urea Nitrogen 6 mg/dL 6-24 Creatinine 0.70 mg/dL 0.50-1.40 BUN/Creatinine Ratio 8.6 8-20 Calcium 9.0 mg/dL 8.1-9.9 Total Protein 7.7 g/dL 6.2-8.1 Albumin 4.0 g/dL 3.6-5.4 Globulin 3.7 g/dL 2-4 Albumin/Globulin Ratio 1.1 1-3 Total Bilirubin 0.7 mg/dL 0.4-1.5 Alkaline Phosphatase 84 U/L 30-110 Alt 25 U/L 14-54 Ast 26 U/L 12-42 Egfr Non- 90.9 >60 Egfr 116.9 >60 50 Laboratory test finding 11/13/2012 Inr 0.99 High 0.87-0.97 Activated Partial Thrombo Time 32.3 seconds 22.18-37.18 Stool For Blood 11/13/2012 Stool Occult Blood (SEE NOTE) 51 CBC No Diff 11/12/2012 White Blood Count 9.2 10^3/uL 4.8-10.8 Red Blood Count 4.68 10^6/uL 4.0-5.4 Hemoglobin 15.2 g/dL 12.0-16.0 Hematocrit 46 % 35-47 Mean Corpuscular Volume 98 fL High 80-97 Mean Corpuscular Hemoglobin 33 pg High 27-31 Mean Corpuscular HGB Conc 33 g/dL 31-36 Red Cell Distribution Width 15 % 10.5-15 Platelet Count 230 10^3/uL 150-450 Mean Platelet Volume 9 um3 7.4-10.4 Comp Metabolic Panel 11/12/2012 Sodium 138 mmol/L 133-145 Potassium 4.0 mmol/L 3.5-5.0 Chloride 109 mmol/L 101-111 Co2 Carbon Dioxide 20.0 mmol/L Low 22-32 Anion Gap 9.0 mmol/L 2-11 Glucose 96 mg/dL 70-100 Blood Urea Nitrogen 6 mg/dL 6-24 Creatinine 0.80 mg/dL 0.50-1.40 BUN/Creatinine Ratio 7.5 Low 8-20 Calcium 9.2 mg/dL 8.1-9.9 Total Protein 7.8 g/dL 6.2-8.1 Albumin 4.2 g/dL 3.6-5.4 Globulin 3.6 g/dL 2-4 Albumin/Globulin Ratio 1.2 1-3 Total Bilirubin 0.8 mg/dL 0.4-1.5 Alkaline Phosphatase 92 U/L 30-110 Alt 22 U/L 14-54 Ast 23 U/L 12-42 Egfr Non- 77.9 >60 Egfr 100.2 >60 52 Laboratory test finding 11/12/2012 Amylase 32 U/L 20-120 Lipase 25 U/L 22-51 Laboratory test finding 11/12/2012 CA 125 Antigen 11.3 U/mL 2.0-35.0 53 H Pylori Iga 11/12/2012 Helicobacter pylori IgA Ab Negative Negative H pylori IgA Ab Index 7.36 54 Laboratory test finding 11/12/2012 Helicobacter pylori IgG Ab Negative Negative 55 H.Pylori Igm AB 11/12/2012 Helicobacter pylori IgM Ab Negative Negative H pylori IgM AB Index 26.20 56 Urinalysis 10/29/2012 Urine Color Yellow Urine Appearance Clear Urine Specific [place] 1.008 Low 1.010-1.030 Urine Esterase Negative Negative Urine Nitrate Negative Negative Urine Urobilinogen Negative E.U./dL Negative Urine Protein Negative mg/dL Negative Urine pH 6.0 5-9 Urine Blood Negative Negative Urine Ketones Negative mg/dL Negative Urine Bilirubin Negative Negative Urine Glucose Negative mg/dL Negative CBC Auto Diff 10/29/2012 White Blood Count 13.6 10^3/uL High 4.8-10.8 Red Blood Count 4.23 10^6/uL 4.0-5.4 Hemoglobin 13.1 g/dL 12.0-16.0 Hematocrit 41 % 35-47 Mean Corpuscular Volume 96 fL 80-97 Mean Corpuscular Hemoglobin 31 pg 27-31 Mean Corpuscular HGB Conc 32 g/dL 31-36 Red Cell Distribution Width 15 % 10.5-15 Platelet Count 219 10^3/uL 150-450 Mean Platelet Volume 9 um3 7.4-10.4 Abs Neutrophils 9.0 10^3/uL High 1.5-7.7 Abs Lymphocytes 3.2 10^3/uL 1.0-4.8 Abs Monocytes 1.1 10^3/uL High 0-0.8 Abs Eosinophils 0.2 10^3/uL 0-0.6 Abs Basophils 0.1 10^3/uL 0-0.2 Abs Nucleated RBC 0.01 10^3/uL Granulocyte % 66.7 % 38-83 Lymphocyte % 23.6 % Low 25-47 Monocyte % 8.0 % 1-9 Eosinophil % 1.3 % 0-6 Basophil % 0.4 % 0-2 Nucleated Red Blood Cells % 0 Comp Metabolic Panel 10/29/2012 Sodium 141 mmol/L 133-145 Potassium 3.5 mmol/L 3.5-5.0 Chloride 110 mmol/L 101-111 Co2 Carbon Dioxide 21.0 mmol/L Low 22-32 Anion Gap 10.0 mmol/L 2-11 Glucose 97 mg/dL 70-100 Blood Urea Nitrogen 10 mg/dL 6-24 Creatinine 0.80 mg/dL 0.50-1.40 BUN/Creatinine Ratio 12.5 8-20 Calcium 9.0 mg/dL 8.1-9.9 Total Protein 7.6 g/dL 6.2-8.1 Albumin 3.8 g/dL 3.6-5.4 Globulin 3.8 g/dL 2-4 Albumin/Globulin Ratio 1.0 1-3 Total Bilirubin 0.6 mg/dL 0.4-1.5 Alkaline Phosphatase 71 U/L 30-110 Alt 16 U/L 14-54 Ast 21 U/L 12-42 Egfr Non- 77.9 >60 Egfr 100.2 >60 57 Laboratory test finding 10/29/2012 Amylase 41 U/L 20-120 Lipase 26 U/L 22-51 C Reactive Protein 0.7 mg/dL High Less than 0.5 Laboratory test finding 08/08/2012 Urine Negative Negative 58 Urinalysis 08/08/2012 Urine Color Yellow Urine Appearance Clear Urine Specific [place] 1.005 Low 1.010-1.030 Urine Esterase Negative Negative Urine Nitrate Negative Negative Urine Urobilinogen Negative E.U./dL Negative Urine Protein Negative mg/dL Negative Urine pH 6.0 5-9 Urine Blood Negative Negative Urine Ketones Negative mg/dL Negative Urine Bilirubin Negative Negative Urine Glucose Negative mg/dL Negative Laboratory test finding 08/08/2012 Lipase 48 U/L 22-51 C Reactive Protein 1.0 mg/dL High Less than 0.5 Comp Metabolic Panel 08/08/2012 Sodium 139 mmol/L 133-145 Potassium 3.4 mmol/L Low 3.5-5.0 Chloride 112 mmol/L High 101-111 Co2 Carbon Dioxide 22.0 mmol/L 22-32 Anion Gap 5.0 mmol/L 2-11 Glucose 90 mg/dL 70-100 Blood Urea Nitrogen 10 mg/dL 6-24 Creatinine 0.80 mg/dL 0.50-1.40 BUN/Creatinine Ratio 12.5 8-20 Calcium 8.8 mg/dL 8.1-9.9 Total Protein 7.9 g/dL 6.2-8.1 Albumin 4.0 g/dL 3.6-5.4 Globulin 3.9 g/dL 2-4 Albumin/Globulin Ratio 1.0 1-3 Total Bilirubin 0.5 mg/dL 0.4-1.5 Alkaline Phosphatase 76 U/L 30-110 Alt 19 U/L 14-54 Ast 19 U/L 12-42 Egfr Non- 77.9 >60 Egfr 100.2 >60 59 CBC Auto Diff 08/08/2012 White Blood Count 11.0 10^3/uL High 4.8-10.8 Red Blood Count 4.50 10^6/uL 4.0-5.4 Hemoglobin 14.7 g/dL 12.0-16.0 Hematocrit 43 % 35-47 Mean Corpuscular Volume 96 fL 80-97 Mean Corpuscular Hemoglobin 33 pg High 27-31 Mean Corpuscular HGB Conc 34 g/dL 31-36 Red Cell Distribution Width 15 % 10.5-15 Platelet Count 193 10^3/uL 150-450 Mean Platelet Volume 9 um3 7.4-10.4 Abs Neutrophils 5.8 10^3/uL 1.5-7.7 Abs Lymphocytes 3.8 10^3/uL 1.0-4.8 Abs Monocytes 0.9 10^3/uL High 0-0.8 Abs Eosinophils 0.4 10^3/uL 0-0.6 Abs Basophils 0.1 10^3/uL 0-0.2 Abs Nucleated RBC 0 10^3/uL Granulocyte % 52.7 % 38-83 Lymphocyte % 34.6 % 25-47 Monocyte % 7.8 % 1-9 Eosinophil % 3.8 % 0-6 Basophil % 1.1 % 0-2 Nucleated Red Blood Cells % 0 Laboratory test 06/14/2012 B Type Natriuretic 33.0 pg/mL 0-100 finding Peptide CBC Auto Diff 06/14/2012 White Blood Count 19.6 10^3/uL High 4.8-10.8 Red Blood Count 3.95 10^6/uL Low 4.0-5.4 Hemoglobin 12.5 g/dL 12.0-16.0 Hematocrit 38 % 35-47 Mean Corpuscular Volume 96 fL 80-97 Mean Corpuscular Hemoglobin 32 pg High 27-31 Mean Corpuscular HGB Conc 33 g/dL 31-36 Red Cell Distribution Width 14 % 10.5-15 Platelet Count 221 10^3/uL 150-450 Mean Platelet Volume 9 um3 7.4-10.4 Abs Neutrophils 10.6 10^3/uL High 1.5-7.7 Abs Lymphocytes 7.3 10^3/uL High 1.0-4.8 Abs Monocytes 1.3 10^3/uL High 0-0.8 Abs Eosinophils 0.2 10^3/uL 0-0.6 Abs Basophils 0.2 10^3/uL 0-0.2 Abs Nucleated RBC 0.02 10^3/uL Manual Differential 06/14/2012 Neutrophil % 57 % 38-83 Band % 4 % 0-8 Lymphocytes % 33 % 25-47 Monocytes % 2 % 0-13 Eosinophils % 2 % 0-6 Reactive Lymph % 2 % 0-6 RBC Morphology Normal Normal Comp Metabolic Panel 06/14/2012 Sodium 138 mmol/L 133-145 Potassium 3.6 mmol/L 3.5-5.0 Chloride 113 mmol/L High 101-111 Co2 Carbon Dioxide 21.0 mmol/L Low 22-32 Anion Gap 4.0 mmol/L 2-11 Glucose 95 mg/dL 70-100 Blood Urea Nitrogen 15 mg/dL 6-24 Creatinine 0.90 mg/dL 0.50-1.40 BUN/Creatinine Ratio 16.7 8-20 Calcium 8.4 mg/dL 8.1-9.9 Total Protein 6.8 g/dL 6.2-8.1 Albumin 3.7 g/dL 3.6-5.4 Globulin 3.1 g/dL 2-4 Albumin/Globulin Ratio 1.2 1-3 Total Bilirubin 0.4 mg/dL 0.4-1.5 Alkaline Phosphatase 66 U/L 30-110 Alt 12 U/L Low 14-54 Ast 12 U/L 12-42 Egfr Non- 68.3 >60 Egfr 87.9 >60 60 Laboratory test finding 06/14/2012 Troponin I 0.04 ng/mL 0-0.06 61 C Reactive Protein 0.5 mg/dL Less than 0.5 Urinalysis 05/09/2012 Urine Color [place] Urine Appearance Clear Urine Specific [place] 1.020 1.010-1.030 Urine Esterase Negative Negative Urine Nitrate Negative Negative Urine Urobilinogen Negative E.U./dL Negative Urine Protein Trace mg/dL Negative Urine pH 6.0 5-9 Urine Blood Negative Negative Urine Ketones 1+ mg/dL Negative Urine Bilirubin Negative Negative 62 Urine Glucose Negative mg/dL Negative Blood Culture 05/08/2012 Blood Culture (SEE NOTE) 63 Laboratory test finding 05/08/2012 Creatine Kinase 131 U/L 0-200 CKMB 05/08/2012 CKMB In NG/ML 1.9 ng/mL 0.3-4.0 CKMB % 2.0 % 0-9 64 CKMB In NG/ML 1.9 ng/mL 0.3-4.0 CKMB % 2.0 % 0-9 65 Laboratory test finding 05/08/2012 Troponin I 0.04 ng/mL 0-0.06 66 C Reactive Protein 2.4 mg/dL High Less than 0.5 Basic Metabolic Panel 05/08/2012 Sodium 136 mmol/L 133-145 Potassium 3.6 mmol/L 3.5-5.0 Chloride 109 mmol/L 101-111 Co2 Carbon Dioxide 19.0 mmol/L Low 22-32 Anion Gap 8.0 mmol/L 2-11 Glucose 94 mg/dL 70-100 Blood Urea Nitrogen 7 mg/dL 6-24 Creatinine 0.70 mg/dL 0.50-1.40 BUN/Creatinine Ratio 10.0 8-20 Calcium 8.6 mg/dL 8.1-9.9 Egfr Non- 91.3 >60 Egfr 117.5 >60 67 CBC Auto Diff 05/08/2012 White Blood Count 11.9 10^3/uL High 4.8-10.8 Red Blood Count 4.25 10^6/uL 4.0-5.4 Hemoglobin 13.6 g/dL 12.0-16.0 Hematocrit 41 % 35-47 Mean Corpuscular Volume 97 fL 80-97 Mean Corpuscular Hemoglobin 32 pg High 27-31 Mean Corpuscular HGB Conc 33 g/dL 31-36 Red Cell Distribution Width 14 % 10.5-15 Platelet Count 203 10^3/uL 150-450 Mean Platelet Volume 10 um3 7.4-10.4 Abs Neutrophils 9.9 10^3/uL High 1.5-7.7 Abs Lymphocytes 0.9 10^3/uL Low 1.0-4.8 Abs Monocytes 0.9 10^3/uL High 0-0.8 Abs Eosinophils 0.1 10^3/uL 0-0.6 Abs Basophils 0.1 10^3/uL 0-0.2 Abs Nucleated RBC 0 10^3/uL Granulocyte % 83.0 % 38-83 Lymphocyte % 7.6 % Low 25-47 Monocyte % 7.6 % 1-9 Eosinophil % 1.0 % 0-6 Basophil % 0.8 % 0-2 Nucleated Red Blood Cells % 0 Laboratory test 05/08/2012 B Type Natriuretic 161.0 pg/mL High 0-100 finding Peptide Blood Culture 05/08/2012 Blood Culture (SEE NOTE) 68 CBC Auto Diff 04/09/2012 White Blood Count 12.8 10^3/uL High 4.8-10.8 Red Blood Count 4.32 10^6/uL 4.0-5.4 Hemoglobin 13.9 g/dL 12.0-16.0 Hematocrit 42 % 35-47 Mean Corpuscular Volume 98 fL High 80-97 Mean Corpuscular Hemoglobin 32 pg High 27-31 Mean Corpuscular HGB Conc 33 g/dL 31-36 Red Cell Distribution Width 14 % 10.5-15 Platelet Count 230 10^3/uL 150-450 Mean Platelet Volume 9 um3 7.4-10.4 Abs Neutrophils 5.7 10^3/uL 1.5-7.7 Abs Lymphocytes 5.4 10^3/uL High 1.0-4.8 Abs Monocytes 1.2 10^3/uL High 0-0.8 Abs Eosinophils 0.4 10^3/uL 0-0.6 Abs Basophils 0.1 10^3/uL 0-0.2 Abs Nucleated RBC 0 10^3/uL Granulocyte % 44.7 % 38-83 Lymphocyte % 42.1 % 25-47 Monocyte % 9.2 % High 1-9 Eosinophil % 3.2 % 0-6 Basophil % 0.8 % 0-2 Nucleated Red Blood Cells % 0 Urinalysis 04/09/2012 Urine Color Yellow Urine Appearance Clear Urine Specific [place] 1.005 Low 1.010-1.030 Urine Esterase Trace Negative Urine Nitrate Negative Negative Urine Urobilinogen Negative Negative Urine Protein Negative Negative Urine pH 6.0 5-9 Urine Blood Negative Negative Urine Ketones Negative Negative Urine Bilirubin Negative Negative Urine Glucose Negative Negative Urine Microscopic 04/09/2012 Urine WBC 1+ (<10 /hpf) None Seen Urine RBC None Seen None Seen Urine Epithelial Cells 2+ Squamous /hpf None Seen Laboratory test finding 04/09/2012 Urine Negative Negative 69 Comp Metabolic Panel 04/09/2012 Sodium 135 mmol/L 133-145 Potassium 3.1 mmol/L Low 3.5-5.0 Chloride 107 mmol/L 101-111 Co2 Carbon Dioxide 20.0 mmol/L Low 22-32 Anion Gap 8.0 mmol/L 2-11 Glucose 98 mg/dL 70-100 Blood Urea Nitrogen 8 mg/dL 6-24 Creatinine 0.70 mg/dL 0.50-1.40 BUN/Creatinine Ratio 11.4 8-20 Calcium 8.4 mg/dL 8.1-9.9 Total Protein 7.9 GM/DL 6.2-8.1 Albumin 4.0 GM/DL 3.6-5.4 Globulin 3.9 GM/DL 2-4 Albumin/Globulin Ratio 1.0 1-3 Total Bilirubin 0.6 mg/dL 0.1-1.0 70 Alkaline Phosphatase 85 U/L 30-110 Alt 26 U/L 14-54 Ast 26 U/L 12-42 Egfr Non- 91.3 >60 Egfr 117.5 >60 71 Laboratory test finding 04/09/2012 Lipase 31 U/L 22-51 72 Vitamin D, 25 Hydroxy 03/29/2012 25-Hydroxy Vitamin D2 35 ng/mL 25-Hydroxy Vitamin D3 11 ng/mL 25-Hydroxy Vitamin D Total 46 ng/mL 73 Hepatitis Acute (CMC) 03/29/2012 Hepatitis C Antibody Nonreactive Nonreactive Hepatitis A AB IgM Nonreactive Nonreactive Hepatitis B Core IgM Nonreactive Nonreactive Hepatitis B Surface Antigen Nonreactive Nonreactive Alkaline Phos Isoenzymes 03/29/2012 Alkaline Phosphatase 91 U/L 37 - 98 Alp Liver 1% 71.4 % 27.8-76.3 Alp Liver 1 65.0 IU/L 16.2-70.2 Alp Liver 2% 7.3 % 0.0-8.0 Alp Liver 2 6.6 IU/L 0.0-5.8 Alp Bone % 21.3 % 19.1-67.7 Alp Bone 19.4 IU/L 12.1-42.7 Alp Intestine % 0.0 % 0.0-20.6 Alp Intestine 0.0 IU/L 0.0-11.0 Alp Placental NotPresent 74 Laboratory test 03/29/2012 Alkaline Phosphatase 86 U/L 30-110 finding HIV 1/2 AB Evaluation 03/29/2012 HIV 1 2 Antibody Nonreactive Nonreactive 75 Egfr (Calculated) 01/30/2012 Estimated GFR (CALCULATED) Egfr >60 76 Egfr, -[place] >60 77 Laboratory test finding 01/30/2012 Lipase 32 U/L 1-64 CBC 01/30/2012 WBC 12.7 x10E3/uL High 4.3-10.9 RBC 4.70 x10E6/uL 3.80-5.30 Hemoglobin 15.0 g/dL 11.8-15.8 Hematocrit 45.5 % 35.0-47.0 MCV 96.8 fl 82.0-98.0 MCH 31.9 pg 27.5-33.5 MCHC 33.0 g/dL 32.0-36.0 RDW 14.1 % 11.5-14.5 Platelet Count 198 x10E3/uL 130-400 MPV 13.0 fl High 6.5-10.5 Segmented Neutrophils 85.7 % High 44.0-74.0 Lymphocytes 11.8 % Low 15.0-45.0 Monocytes 2.1 % 2.0-13.0 Eosinophils 0.2 % 0.0-6.0 Basophils 0.2 % 0.0-2.0 Neutrophil Absolute 10.9 x10E3/uL High 1.4-7.0 Lymphocytes Absolute 1.5 x10E3/uL 1.0-3.4 Monocyte Absolute 0.3 x10E3/uL 0.2-1.0 Eosinophil Absolute 0.0 x10E3/uL 0.0-0.5 Basophil Absolute 0.0 x10E3/uL 0.0-0.2 Laboratory test finding 01/30/2012 TSH (Thyrotropin) 0.590 uIU/ml 0.350- 5.500 Amylase 41 U/L 30-107 Vitamin D, 25 Oh 17.2 ng/mL Low 30.0-100.0 78 Comprehensive Metabolic 01/30/2012 Glucose 120 mg/dL High 70-100 BUN 10 mg/dL 4-18 Creatinine, Serum 0.85 mg/dL 0.50-1.10 Sodium 140 mmol/L 136-146 Potassium 4.0 mmol/L 3.5-5.3 Chloride 109 mmol/L 98-110 Carbon Dioxide 22 mmol/L 20-32 Albumin 4.7 g/dL 3.5-4.7 Protein, Total 7.9 g/dL 6.4-8.3 Calcium 9.0 mg/dL 8.4-10.4 Alkaline Phosphatase 101 U/L 10-118 Sgot (Ast) 18 U/L 3-40 SGPT (Alt) 22 U/L 7-50 Bilirubin, Total 0.40 mg/dL 0.30-1.20 1 Consistent with Previous Results Reported on 10/28/17 2 Because ethnic data is not always readily available, this report includes an eGFR for both -Americans and non- Americans. The National Kidney Disease Education Program (NKDEP) does not endorse the use of the MDRD equation for patients that are not between the ages of 18 and 70, are , have extremes of body size, muscle mass, or nutritional status, or are non- or non-. According to the National Kidney Foundation, irrespective of diagnosis, the stage of the disease is based on the level of kidney function: Stage Description GFR(mL/min/1.73 m(2)) 1 Kidney damage with normal or decreased GFR 90 2 Kidney damage with mild decrease in GFR 60-89 3 Moderate decrease in GFR 30-59 4 Severe decrease in GFR 15-29 5 Kidney failure <15 (or dialysis) 3 Desirable: <150 Borderline High: 150-199 High: 200-499 Very High: >500 4 Desirable: <200 Borderline High: 200-239 High: >239 5 Low: <40 Desirable: 40-60 High: >60 6 Desirable: <100 Near Optimal: 100-129 Borderline High: 130-159 High: 160-189 Very High: >189 7 [id number] Therapeutic target for the treatment of diabetes mellitus patients is <7% HBA1C, and in selective patients <6.0%. Please refer to [place] [employer] diabetic care guidelines for further information. 9 Because ethnic data is not always readily available, this report includes an eGFR for both -Americans and non- Americans. The National Kidney Disease Education Program (NKDEP) does not endorse the use of the MDRD equation for patients that are not between the ages of 18 and 70, are , have extremes of body size, muscle mass, or nutritional status, or are non- or non-. According to the National Kidney Foundation, irrespective of diagnosis, the stage of the disease is based on the level of kidney function: Stage Description GFR(mL/min/1.73 m(2)) 1 Kidney damage with normal or decreased GFR 90 2 Kidney damage with mild decrease in GFR 60-89 3 Moderate decrease in GFR 30-59 4 Severe decrease in GFR 15-29 5 Kidney failure <15 (or dialysis) 10 Acute inflammation: >10.00 11 Please check labs 2 days before the next visit 12 Because ethnic data is not always readily available, this report includes an eGFR for both -Americans and non- Americans. The National Kidney Disease Education Program (NKDEP) does not endorse the use of the MDRD equation for patients that are not between the ages of 18 and 70, are , have extremes of body size, muscle mass, or nutritional status, or are non- or non-. According to the National Kidney Foundation, irrespective of diagnosis, the stage of the disease is based on the level of kidney function: Stage Description GFR(mL/min/1.73 m(2)) 1 Kidney damage with normal or decreased GFR 90 2 Kidney damage with mild decrease in GFR 60-89 3 Moderate decrease in GFR 30-59 4 Severe decrease in GFR 15-29 5 Kidney failure <15 (or dialysis) 13 Acute inflammation: >10.00 14 Immunoglobulin G (IgG), S was cancelled on 02/15/2016 at 10:13; Test cancelled by RBS rule <[id number]> Reason: Test IGG is cancelled due to be ordered with Test IGGS Test Performed by: [place] [address] Lead Pony Rider: Torrey Bird II, M.D., Ph.D. 15 Test Performed by: [address] [address] Lead Pony Rider: Torrey Bird II, M.D., Ph.D. 16 REFERENCE VALUE 18.4 - 106.0 17 REFERENCE VALUE 2.4 - 121.0 Test Performed by: [address] [address] [employer] Pony Rider: Torrey Bird II, M.D., Ph.D. 18 Either of the two following conditions would be consistent with a normal response to Streptococcus pneumoniae vaccination: Antibody concentrations greater than or equal to the reference value for at least 50% of serotypes in either a pre- or post-vaccination sample. Antibody concentrations increased by 2-fold or greater for at least 50% of serotypes when comparing the pre- to the post-vaccination results. Optimal cut-offs (reference values) were derived by measuring serotype-specific IgG antibody levels in an adult cohort of 100 healthy individuals (previously unvaccinated) before and after pneumococcal vaccination and identifying the antibody level for each serotype that included the largest number of individuals with a negative response (below cut-off) pre-vaccination and a positive response (above cut-off) post-vaccination. ADDITIONAL INFORMATION All 23 serotypes assessed by this assay are included in the Pneumovax 23 vaccine. IgG antibody concentrations following Pneumovax 23 administration are a reflection of an individual's humoral immune response to polysaccharide antigens. Serotypes 1, 3, 4, 5, 6A (6), 14, 19F (19), 23F (23), 6B (26), 7F (51), 18C (56), 19A (57) and 9V (68) are included in the Prevnar-13 conjugate vaccine. Antibody concentrations following Prevnar-13 administration are a reflection of an individual's response to protein-conjugated antigens. Serotypes 2, 8, 9N (9), 12F (12), 17F (17), 20, 22F (22), 10A (34), 11A (43), 15B (54) and 33F (70) are present only in the Pneumovax 23 vaccine and not in Prevnar-13. Responses to these 11 serotypes are a reflection of an individual's response to polysaccharide antigens. Serotype 6A is only present in Prevnar-13. This test was developed and its performance characteristics determined by [facility] in a manner consistent with CLIA requirements. This test has not been cleared or approved by the U.S. Food and Drug Administration. Test Performed by: [facility] - [address] [address] Lead Pony Rider: Torrey Bird II, M.D., Ph.D. 19 Reference Range and Interpretation: TnI (ng/mL) Interpretation Less Than 0.03 ng/mL Not supportive of diagnosis of [place] 0.03 - 0.50 ng/mL Indeterminate: suggest serial studies if clinically indicated. Greater than 0.5 ng/mL Consistent with diagnosis of AL 20 Because ethnic data is not always readily available, this report includes an eGFR for both -Americans and non- Americans. The National Kidney Disease Education Program (NKDEP) does not endorse the use of the MDRD equation for patients that are not between the ages of 18 and 70, are , have extremes of body size, muscle mass, or nutritional status, or are non- or non-. According to the National Kidney Foundation, irrespective of diagnosis, the stage of the disease is based on the level of kidney function: Stage Description GFR(mL/min/1.73 m(2)) 1 Kidney damage with normal or decreased GFR 90 2 Kidney damage with mild decrease in GFR 60-89 3 Moderate decrease in GFR 30-59 4 Severe decrease in GFR 15-29 5 Kidney failure <15 (or dialysis) 21 Low risk: <1.00 Average risk: 1.00-3.00 High risk: >3.00 22 Reference Range and Interpretation: TnI (ng/mL) Interpretation Less Than 0.03 ng/mL Not supportive of diagnosis of AL 0.03 - 0.50 ng/mL Indeterminate: suggest serial studies if clinically indicated. Greater than 0.5 ng/mL Consistent with diagnosis of AL 23 >100 to <200 pg/mL: likely compensated congestive heart failure (CHF) 200 to 400 pg/mL: likely moderate CHF >400 pg/mL: likely moderate to severe CHF 24 Because ethnic data is not always readily available, this report includes an eGFR for both -Americans and non- Americans. The National Kidney Disease Education Program (NKDEP) does not endorse the use of the MDRD equation for patients that are not between the ages of 18 and 70, are , have extremes of body size, muscle mass, or nutritional status, or are non- or non-. According to the National Kidney Foundation, irrespective of diagnosis, the stage of the disease is based on the level of kidney function: Stage Description GFR(mL/min/1.73 m(2)) 1 Kidney damage with normal or decreased GFR 90 2 Kidney damage with mild decrease in GFR 60-89 3 Moderate decrease in GFR 30-59 4 Severe decrease in GFR 15-29 5 Kidney failure <15 (or dialysis) 25 Senior Database Engineer: [id number] JOJO CHAVARRIA 26 [facility] Severe Sepsis and Septic Shock Management Bundle Measure requires all lactic acids initially measuring >2.0mmol/L be repeated. 27 Because ethnic data is not always readily available, this report includes an eGFR for both -Americans and non- Americans. The National Kidney Disease Education Program (NKDEP) does not endorse the use of the MDRD equation for patients that are not between the ages of 18 and 70, are , have extremes of body size, muscle mass, or nutritional status, or are non- or non-. According to the National Kidney Foundation, irrespective of diagnosis, the stage of the disease is based on the level of kidney function: Stage Description GFR(mL/min/1.73 m(2)) 1 Kidney damage with normal or decreased GFR 90 2 Kidney damage with mild decrease in GFR 60-89 3 Moderate decrease in GFR 30-59 4 Severe decrease in GFR 15-29 5 Kidney failure <15 (or dialysis) 28 Reference Range and Interpretation: TnI (ng/mL) Interpretation Less Than 0.03 ng/mL Not supportive of diagnosis of AL 0.03 - 0.50 ng/mL Indeterminate: suggest serial studies if clinically indicated. Greater than 0.5 ng/mL Consistent with diagnosis of AL 29 SEE RESULT BELOW Name: RICHARD THOMPSON : [address]: Mell Sexton MD Acct: [id number] Unit: [id number] AGE: 45 Location: [place] [address] Re08/04/15 Dis: 08/05/15 SEX: F Status: DIS IN SPEC: [id number] KENJI: 08/03/15 [facility] [place] DR: Yosef Pendleton DO REQ: [id number] RECD: 08/03/15 STATUS: MARRY FULLER DR: Becca Bailey MASTER [employer] SECURITY _ SOURCE: BLOOD,VENO SPDESC: ORDERED: Blood Cult Procedure Result Reported Site Aerobic Culture Bottle Final 03/09/16- 1423 ML No Growth Day 5 Anaerobic Culture Bottle Final 08/08/15- 1423 ML No Growth Day 5 * ML - [facility] ([facility]) . END OF REPORT * ML=Testing performed at Main Lab DEPARTMENT OF PATHOLOGY, [address] [place] [address] Hamilton Barraza M.D. Director [facility] # [id number] 30 Acute inflammation: >10.00 31 Because ethnic data is not always readily available, this report includes an eGFR for both -Americans and non- Americans. The National Kidney Disease Education Program (NKDEP) does not endorse the use of the MDRD equation for patients that are not between the ages of 18 and 70, are , have extremes of body size, muscle mass, or nutritional status, or are non- or non-. According to the National Kidney Foundation, irrespective of diagnosis, the stage of the disease is based on the level of kidney function: Stage Description GFR(mL/min/1.73 m(2)) 1 Kidney damage with normal or decreased GFR 90 2 Kidney damage with mild decrease in GFR 60-89 3 Moderate decrease in GFR 30-59 4 Severe decrease in GFR 15-29 5 Kidney failure <15 (or dialysis) 32 SEE RESULT BELOW Name: RICHARD THOMPSON : [address]: Becca Bailey NP Acct: [id number] Unit: [id number] AGE: 44 Location: [facility] Re12/26/14 SEX: F Status: REG REF SPEC: [id number] KENJI: 12/26/14-[address]: Becca Bailey NP REQ: [id number] RECD: 12/26/14 STATUS: COMP _ SOURCE: VAGINAL SPDESC: ORDERED: Genital Culture Procedure Result Verified Site Genital Culture Final 12/28/14- 1019 ML Organism 1 NORMAL RUPAL Quantity 3+ Routine genital cultures do not include selective agar for Neisseria gonorrhoeae. Molecular testing offers better test sensitivity and therefore is the preferred test methodology for identifying this organism. * ML - MAIN LAB ([facility]) . END OF REPORT * ML=Testing performed at Main Lab DEPARTMENT OF PATHOLOGY, [address] [place] [address] Hamilton Barraza M.D. Director [facility] # [id number] 33 Normal Range 180 to 914 Indeterminate Range 145 to 180 Deficient Range <145 34 Mild absolute lymphocytosis. If persistent, recommend correlation with flow cytometry. Reviewed by Jodi Mason MD 35 RUN DATE: 09/22/14 [facility] LAB LIVE PAGE 1 RUN TIME: [address] [place] [address] Specimen Inquiry Name: MARYANRICHARD Mart : [address]: Becca Bailey NP Acct: [id number] Unit: [id number] AGE: 44 Location: [facility] Re09/21/14 SEX: F Status: REG REF SPEC: [id number] KENJI: 09/21/14-[address]: Becca Bailey NP REQ: [id number] RECD: 09/21/14 STATUS: SOUT _ ORDERED: IMAGE ANALYSIS, HPV/Thin Prep, HPV 16/18 GENE FINAL DIAGNOSIS Negative for Intraepithelial lesion or Malignancy A. Vaginal Specimen Adequacy: Satisfactory of evaluation Patient Information: HPV: High risk HPV RNA testing regardless of pap results. HPV 16/18 Genotype for HPV pos Actual Specimen Date: 09/21/14 Hysterectomy?: Y Date Time Test Result Flag (u) Normal Range 09/21/14 0944 HPV RNA Negative Negative The high-risk HPV types detected by the assay include: 16, 18, 31, 33, 35, 39, 45, 51, 52, 56, 58, 59, 66, and 68. Signed (signature on file) STEPH Lawson (ASCP) 09/22 1321 This Pap test was evaluated with the assistance of the ThinPrep Test Imaging System. Due to cytologic findings at the community center worker microscope, comprehensive manual rescreening by a Occupational Physician may be required. The Pap Smear is a screening test designed to aid in the detection of premalignant and malignant conditions of the uterine cervix. It is not a diagnostic procedure and should not be used as the sole means of detecting cervical cancer. Both false- positive and false- negative reports do occur. Depending on your risk status, a Pap smear should be obtained and evaluated every 1-3 years. END OF REPORT * ML=Testing performed at Main Lab DEPARTMENT OF PATHOLOGY, [address] [place] [address] Hamilton Barraza M.D. Director [facility] # [id number] 36 The high-risk HPV types detected by the assay include: 16, 18, 31, 33, 35, 39, 45, 51, 52, 56, 58, 59, 66, and 68. 37 RUN DATE: 06/19/13 [facility] LAB LIVE PAGE 1 RUN TIME: [address] [place] [address] Specimen Inquiry Name: RICHARD THOMPSON : [address]: Becca Bailey NP Acct: [id number] Unit: [id number] AGE: 43 Location: [facility] Re06/17/13 SEX: F Status: REG REF SPEC: [id number] KENJI: 06/17/13-[address]: Becca Bailey NP REQ: [id number] RECD: 06/17/13 STATUS: RES _ SOURCE: URINE SPDESC: ORDERED: Urine Culture, GC/Chlam RNA QUERIES: Medent Number [id number] Procedure Result Verified Site Urine Culture Final 06/19/13- 0907 ML No Growth Day 2 (<1,000 CFU/mL) Chlamydia Trachomatis RNA PENDING GC (N. gonorrhoeae) RNA PENDING END OF REPORT * ML=Testing performed at Main Lab DEPARTMENT OF PATHOLOGY, [facility] [employer] [place], [place] [address] Hamilton Barraza M.D. Director [facility] Permit #[id number] 38 RUN DATE: 06/21/13 [facility] LAB LIVE PAGE 1 RUN TIME: [address] [facility] [place], [place] [address] Specimen Inquiry Name: RICHARD THOMPSON : [address]: Becca Bailey NP Acct: [id number] Unit: [id number] AGE: 43 Location: [facility] Re06/17/13 SEX: F Status: REG REF SPEC: [id number] KENJI: 06/17/[address]: Becca Bailey NP REQ: [id number] RECD: 06/17/13 STATUS: COMP _ SOURCE: URINE SPDESC: ORDERED: Urine Culture, GC/Chlam RNA QUERIES: Medent Number [id number] Procedure Result Verified Site Urine Culture Final 06/19/13- 0907 ML No Growth Day 2 (<1,000 CFU/mL) Chlamydia Trachomatis RNA Final 06/21/13- 1508 ML NEGATIVE for Chlamydia trachomatis rRNA GC (N. gonorrhoeae) RNA Final 06/21/13- 1515 ML NEGATIVE for Neisseria gonorrhoeae rRNA A negative result does not preclude the presence of a C. trachomatis or N. gonorrhoeae infection because results are dependent on adequate specimen collection, absence of inhibitors, and sufficient rRNA to be detected. Test results may be affected by improper specimen collection, improper storage, technical error, or specimen mixup. Limitations of the Procedure: The Aptima Combo 2 Assay is not intended for the evaluation of suspected sexual abuse or for other medico-legal indications. For those patients for whom a false positive result may have adverse psychosocial impact, the [facility] recommends retesting by a method using an alternate technology. Therapeutic failure or success cannot be determined with the Aptima Combo 2 Assay since nucleic acid may persist following appropriate antimicrobial therapy. Results from the Aptima Combo 2 Assay should be interpreted CONTINUED ON NEXT PAGE * ML=Testing performed at Main Lab DEPARTMENT OF PATHOLOGY, [facility] [place] [address] Hamilton Barraza M.D. Director [facility] Permit #[id number] RUN DATE: 06/21/13 [facility] LAB LIVE PAGE 2 RUN TIME: [address] [facility] [place], [place] [address] Specimen Inquiry Patient: RICHARD THOMPSON [id number] (Continued) Specimen: [id number] Collected: 06/17/13 Received: 06/17/13 (Continued) Procedure Result Verified Site GC (N. gonorrhoeae) RNA Final (continued) 06/21/13- 1515 in conjunction with other laboratory and clinical data available to the clinican. Performance characteristics for detecting C. trachomatis and N. gonorrhoeae are derived from high prevalence populations. Positive results in low prevalence populations should be interpreted carefully with the understanding that the likelihood of a false positive may be higher than a true positive. END OF REPORT * ML=Testing performed at Main Lab DEPARTMENT OF PATHOLOGY, [address] [place] [address] Hamilton Barraza M.D. Director [facility] Permit #[id number] 39 Verbal to [id number] by [id number] at 0844 on 06/07/13. Results read back accurately. 40 This test detects intact HCG only and is indicated for the early detection of . 41 Because ethnic data is not always readily available, this report includes an eGFR for both -Americans and non- Americans. The National Kidney Disease Education Program (NKDEP) does not endorse the use of the MDRD equation for patients that are not between the ages of 18 and 70, are , have extremes of body size, muscle mass, or nutritional status, or are non- or non-. According to the National Kidney Foundation, irrespective of diagnosis, the stage of the disease is based on the level of kidney function: Stage Description GFR(mL/min/1.73 m(2)) 1 Kidney damage with normal or decreased GFR 90 2 Kidney damage with mild decrease in GFR 60-89 3 Moderate decrease in GFR 30-59 4 Severe decrease in GFR 15-29 5 Kidney failure <15 (or dialysis) 42 RUN DATE: 04/11/13 [facility] LAB LIVE PAGE 1 RUN TIME: [address] [place] [address] Specimen Inquiry Name: MARYANRICHARD Mart : [address]: Becca Bailey NP Acct: [id number] Unit: [id number] AGE: 42 Location: [facility] Re04/08/13 SEX: F Status: REG REF SPEC: [id number] KENJI: 04/08/13-1047 [facility] [place] DR: Becca Bailey NP REQ: [id number] RECD: 04/08/13 STATUS: SOUT _ ORDERED: LEVEL IV FINAL DIAGNOSIS Skin, right forearm, punch biopsy: A. Verrucous actinic keratosis. B. Margins appear clear in the plane of section. CLINICAL HISTORY No history given. GROSS DESCRIPTION The specimen is received in formalin labeled [facility] and consists of a punch biopsy of skin excised to include subcutaneous tissue that measures 0.4 x 0.4 x 0.4 cm. Near the center of the specimen a 0.2 x 0.2 x 0.1 cm. elevated, round nodule is present located 0.1 cm. from the closest specimen edge. The specimen is bisected and entirely submitted in one cassette. Signed (signature on file) Hamilton Barraza MD 1254 END OF REPORT * ML=Testing performed at Main Lab DEPARTMENT OF PATHOLOGY, [facility] [place] [address] Hamilton Barraza M.D. Director [facility] Permit #[id number] RUN DATE: 04/03/13 [facility] LAB LIVE PAGE 1 RUN TIME: [address] [place] [address] Specimen Inquiry Name: RICHARD THOMPSON : [address]: Becca Bailey NP Acct: [id number] Unit: [id number] AGE: 42 Location: [facility] Re04/01/13 SEX: F Status: REG REF SPEC: [id number] KENJI: 04/01/[address]: Becca Bailey NP REQ: [id number] RECD: 04/01/13 STATUS: COMP _ SOURCE: BREAST,LEF SPDESC: ORDERED: Culture Stain COMMENTS: LEFT BREAST/NIPPLE QUERIES: Medent Number [id number] Specimen Description WOUND LEFT BREAST/NIPPLE Procedure Result Verified Site Wound/Misc Gram Stain Final 04/01/13- 1403 ML 3+ Nucleated Cells No Organisms Seen Wound/Misc Culture Final 04/03/13- 1102 ML Organism 1 NORMAL RUPAL Quantity 1+ END OF REPORT * ML=Testing performed at Main Lab DEPARTMENT OF PATHOLOGY, [address] [place] [address] Hamilton Barraza M.D. Director [facility] Permit #[id number] 44 Because ethnic data is not always readily available, this report includes an eGFR for both -Americans and non- Americans. The National Kidney Disease Education Program (NKDEP) does not endorse the use of the MDRD equation for patients that are not between the ages of 18 and 70, are , have extremes of body size, muscle mass, or nutritional status, or are non- or non-. According to the National Kidney Foundation, irrespective of diagnosis, the stage of the disease is based on the level of kidney function: Stage Description GFR(mL/min/1.73 m(2)) 1 Kidney damage with normal or decreased GFR 90 2 Kidney damage with mild decrease in GFR 60-89 3 Moderate decrease in GFR 30-59 4 Severe decrease in GFR 15-29 5 Kidney failure <15 (or dialysis) 45 This test detects intact HCG only and is indicated for the early detection of . 46 Please note: The following may produce a false positive D Dimer test: - Rheumatoid factor greater than 60 IU/ml - Plasma hemoglobin greater than 0.05 gm/dl - Bilirubin greater than 50 mg/dl - Lipids greater than 1000 mg/dl - FDP greater than 20 ug/ml 47 Reference Range and Interpretation: TnI (ng/mL) Interpretation Less Than 0.06 ng/mL Not supportive of diagnosis of AL 0.06 - 0.50 ng/mL Indeterminate: suggest serial studies if clinically indicated. Greater than 0.5 ng/mL Consistent with diagnosis of AL 48 Because ethnic data is not always readily available, this report includes an eGFR for both -Americans and non- Americans. The National Kidney Disease Education Program (NKDEP) does not endorse the use of the MDRD equation for patients that are not between the ages of 18 and 70, are , have extremes of body size, muscle mass, or nutritional status, or are non- or non-. According to the National Kidney Foundation, irrespective of diagnosis, the stage of the disease is based on the level of kidney function: Stage Description GFR(mL/min/1.73 m(2)) 1 Kidney damage with normal or decreased GFR 90 2 Kidney damage with mild decrease in GFR 60-89 3 Moderate decrease in GFR 30-59 4 Severe decrease in GFR 15-29 5 Kidney failure <15 (or dialysis) 49 RUN DATE: 11/13/12 [facility] LAB LIVE PAGE 1 RUN TIME: [address] [place] [address] Specimen Inquiry Name: RICHARD THOMPSON : [address]: Torrey Feliz MD Acct: [id number] Unit: [id number] AGE: 42 Location: ED Re11/13/12 SEX: F Status: REG ER SPEC: [id number] KENJI: 11/13/12 [facility] [place] DR: Torrey Feliz MD REQ: [id number] RECD: 11/13/12 STATUS: RES OTHR DOWNING: Becca Bailey MASTER [employer]PUT[employer] SECURITY _ SOURCE: STOOL SPDESC: ORDERED: Fecal Lactoferr Procedure Result Verified Site Stool Specimen Description Final 11/13/12- 2214 ML Stool Color Brown Stool Form Nonformed Stool Consistency Watery Fecal Lactoferrin (Stool WBC) PENDING END OF REPORT * ML=Testing performed at Main Lab DEPARTMENT OF PATHOLOGY, [address] [place] [address] Hamilton Barraza M.D. Director [facility] Permit #[id number] 50 Because ethnic data is not always readily available, this report includes an eGFR for both -Americans and non- Americans. The National Kidney Disease Education Program (NKDEP) does not endorse the use of the MDRD equation for patients that are not between the ages of 18 and 70, are , have extremes of body size, muscle mass, or nutritional status, or are non- or non-. According to the National Kidney Foundation, irrespective of diagnosis, the stage of the disease is based on the level of kidney function: Stage Description GFR(mL/min/1.73 m(2)) 1 Kidney damage with normal or decreased GFR 90 2 Kidney damage with mild decrease in GFR 60-89 3 Moderate decrease in GFR 30-59 4 Severe decrease in GFR 15-29 5 Kidney failure <15 (or dialysis) 51 RUN DATE: 11/13/12 [facility] LAB LIVE PAGE 1 RUN TIME: [address] [place] [address] Specimen Inquiry Name: RICHARD THOMPSON : [address]: Torrey Feliz MD Acct: [id number] Unit: [id number] AGE: 42 Location: ED Re11/13/12 SEX: F Status: REG ER SPEC: [id number] KENJI: 11/13/12 [facility] [place] DR: Torrey Feliz MD REQ: [id number] RECD: 11/13/12 STATUS: RES [facility] DR: Becca Bailey MASTER [employer]PUT[employer] SECURITY _ SOURCE: STOOL SPDESC: ORDERED: Hemoccult, Stool Culture, C. diff Amp DNA, O P: Giar/Crypt Procedure Result Verified Site Stool Culture PENDING Stool Specimen Description Final 11/13/12- 2230 ML Stool Color Brown Stool Form Nonformed Stool Consistency Watery Shiga Toxin 1 2 PENDING C. difficile Amplified DNA PENDING Stool Occult Blood Final 11/13/12- 2233 ML Stool Occult Blood Negative O P: Giardia/Cryptospor Screen PENDING END OF REPORT * ML=Testing performed at Main Lab DEPARTMENT OF PATHOLOGY, [address] [place] [address] Hamilton Barraza M.D. Director [facility] Permit #[id number] 52 Because ethnic data is not always readily available, this report includes an eGFR for both -Americans and non- Americans. The National Kidney Disease Education Program (NKDEP) does not endorse the use of the MDRD equation for patients that are not between the ages of 18 and 70, are , have extremes of body size, muscle mass, or nutritional status, or are non- or non-. According to the National Kidney Foundation, irrespective of diagnosis, the stage of the disease is based on the level of kidney function: Stage Description GFR(mL/min/1.73 m(2)) 1 Kidney damage with normal or decreased GFR 90 2 Kidney damage with mild decrease in GFR 60-89 3 Moderate decrease in GFR 30-59 4 Severe decrease in GFR 15-29 5 Kidney failure <15 (or dialysis) 53 The CA 125 assay is not recommended as a cancer screening test, but rather as an aid in monitoring response to therapy for patients with epithelial ovarian cancer. Serial testing for patients CA 125 assay values should be used in conjunction with other methods used for screening ovarian cancer. Assayed by Chemiluminescence Microparticle Immunoassay on the [employer] Access2. The values obtained with different assay methods or kits cannot be used interchangeably. 54 Results with Index Values of <18.00 are negative. For research use only Test Performed by: [place] [address] Lead Pony Rider: Chapin Regalado III, M.D. 55 Test Performed by: [place] [address] Lead Pony Rider: Zara Altamirano, Ph.D. 56 Results with Index Values of <36.00 are negative. For research use only Test Performed by: [place] [address] Lead Pony Rider: Chapin Regalado III, M.D. 57 Because ethnic data is not always readily available, this report includes an eGFR for both -Americans and non- Americans. The National Kidney Disease Education Program (NKDEP) does not endorse the use of the MDRD equation for patients that are not between the ages of 18 and 70, are , have extremes of body size, muscle mass, or nutritional status, or are non- or non-. According to the National Kidney Foundation, irrespective of diagnosis, the stage of the disease is based on the level of kidney function: Stage Description GFR(mL/min/1.73 m(2)) 1 Kidney damage with normal or decreased GFR 90 2 Kidney damage with mild decrease in GFR 60-89 3 Moderate decrease in GFR 30-59 4 Severe decrease in GFR 15-29 5 Kidney failure <15 (or dialysis) 58 If is still suspected, please repeat test after 48 to 72 hours. This test detects intact HCG only and is indicated for the early detection of . 59 Because ethnic data is not always readily available, this report includes an eGFR for both -Americans and non- Americans. The National Kidney Disease Education Program (NKDEP) does not endorse the use of the MDRD equation for patients that are not between the ages of 18 and 70, are , have extremes of body size, muscle mass, or nutritional status, or are non- or non-. According to the National Kidney Foundation, irrespective of diagnosis, the stage of the disease is based on the level of kidney function: Stage Description GFR(mL/min/1.73 m(2)) 1 Kidney damage with normal or decreased GFR 90 2 Kidney damage with mild decrease in GFR 60-89 3 Moderate decrease in GFR 30-59 4 Severe decrease in GFR 15-29 5 Kidney failure <15 (or dialysis) 60 Because ethnic data is not always readily available, this report includes an eGFR for both -Americans and non- Americans. The National Kidney Disease Education Program (NKDEP) does not endorse the use of the MDRD equation for patients that are not between the ages of 18 and 70, are , have extremes of body size, muscle mass, or nutritional status, or are non- or non-. According to the National Kidney Foundation, irrespective of diagnosis, the stage of the disease is based on the level of kidney function: Stage Description GFR(mL/min/1.73 m(2)) 1 Kidney damage with normal or decreased GFR 90 2 Kidney damage with mild decrease in GFR 60-89 3 Moderate decrease in GFR 30-59 4 Severe decrease in GFR 15-29 5 Kidney failure <15 (or dialysis) 61 Reference Range and Interpretation: TnI (ng/ml) Interpretation Less Than 0.06 ng/mL Not supportive of diagnosis of AL 0.06 - 0.50 ng/ml Indeterminate: suggest serial studies if clinically indicated. Greater than 0.5 ng/mL Consistent with diagnosis of AL 62 Effective 04/28/12, bilirubin confirmation by ictotest is discontinued. False-positive results for bilirubin may occur due to color interference from large amounts of blood in the urine, very concentrated urine, or drugs that discolor urine such as phenazopyridine(Pyridium). 63 RUN DATE: 05/13/12 [facility] LAB LIVE PAGE 1 RUN TIME: [address] [place] [address] Specimen Inquiry Name: RICHARD THOMPSON : [address]: Reji Workman MD Acct: [id number] Unit: [id number] AGE: 41 Location: ED Re05/08/12 SEX: F Status: DEP ER SPEC: [id number] KENJI: 05/08/12-2099 [facility] [place] DR: Ce Christensen MD REQ: [id number] RECD: 05/08/12 STATUS: MARRY FULLER DR: Leo GAN,Becca Delarosa _ SOURCE: BLOOD,VENO SPDESC: ORDERED: Blood Cult Procedure Result Verified Site Aerobic Culture Bottle Final 05/13/12- 2106 ML No Growth Day 5 Anaerobic Culture Bottle Final 05/13/12- 2106 ML No Growth Day 5 END OF REPORT * ML=Testing performed at Main Lab DEPARTMENT OF PATHOLOGY, [address] [place] [address] Hamilton Barraza M.D. Director [facility] Permit #[id number] Interpretation %CK-MB; < 5% Not supportive of diagnosis of AL 5 - <10% Indeterminate; suggest serial studies 10% or > Consistent with diagnosis of AL 65 Interpretation %CK-MB; < 5% Not supportive of diagnosis of AL 5 - <10% Indeterminate; suggest serial studies 10% or > Consistent with diagnosis of AL 66 Reference Range and Interpretation: TnI (ng/ml) Interpretation Less Than 0.06 ng/mL Not supportive of diagnosis of AL 0.06 - 0.50 ng/ml Indeterminate: suggest serial studies if clinically indicated. Greater than 0.5 ng/mL Consistent with diagnosis of AL 67 Because ethnic data is not always readily available, this report includes an eGFR for both -Americans and non- Americans. The National Kidney Disease Education Program (NKDEP) does not endorse the use of the MDRD equation for patients that are not between the ages of 18 and 70, are , have extremes of body size, muscle mass, or nutritional status, or are non- or non-. According to the National Kidney Foundation, irrespective of diagnosis, the stage of the disease is based on the level of kidney function: Stage Description GFR(mL/min/1.73 m(2)) 1 Kidney damage with normal or decreased GFR 90 2 Kidney damage with mild decrease in GFR 60-89 3 Moderate decrease in GFR 30-59 4 Severe decrease in GFR 15-29 5 Kidney failure <15 (or dialysis) 68 RUN DATE: 05/13/12 [facility] LAB LIVE PAGE 1 RUN TIME: [address] [place] [id number] Specimen Inquiry Name: RICHARD THOMPSON : [address]: Reji Workman MD Acct: [id number] Unit: [id number] AGE: 41 Location: ED Re05/08/12 SEX: F Status: DEP ER SPEC: [id number] KENJI: 05/08/12 [facility] [place] DR: Ce Christensen MD REQ: [id number] RECD: 05/08/12 STATUS: MARRY FULLER DR: Leo GAN,Becca Delarosa _ SOURCE: BLOOD,VENO SPDESC: ORDERED: Blood Cult Procedure Result Verified Site Aerobic Culture Bottle Final 05/13/12- 2106 ML No Growth Day 5 Anaerobic Culture Bottle Final 05/13/12- 2106 ML No Growth Day 5 END OF REPORT * ML=Testing performed at Main Lab DEPARTMENT OF PATHOLOGY, [address] [place] [address] Hamilton Barraza M.D. Director [place] Permit #[id number] 69 If is still suspected, please repeat test after 48 to 72 hours. This test detects intact HCG only and is indicated for the early detection of . 70 A metabolite of Naproxen, O-desmethylnaproxen, has been shown to interfere with the Jendrassik-Benji method for measuring total bilirubin. Samples from patients who have taken Naproxen have shown spurious elevation in total bilirubin levels. 71 Because ethnic data is not always readily available, this report includes an eGFR for both -Americans and non- Americans. The National Kidney Disease Education Program (NKDEP) does not endorse the use of the MDRD equation for patients that are not between the ages of 18 and 70, are , have extremes of body size, muscle mass, or nutritional status, or are non- or non-. According to the National Kidney Foundation, irrespective of diagnosis, the stage of the disease is based on the level of kidney function: Stage Description GFR(mL/min/1.73 m(2)) 1 Kidney damage with normal or decreased GFR 90 2 Kidney damage with mild decrease in GFR 60-89 3 Moderate decrease in GFR 30-59 4 Severe decrease in GFR 15-29 5 Kidney failure <15 (or dialysis) 72 Comment: b 73 -- REFERENCE VALUE -- 25-HYDROXY D TOTAL (D2+D3) Optimum levels in the normal population are 25-80 Test Performed by: [place] [address] Lead Pony Rider: Chapin Regalado III, M.D. R 74 -- REFERENCE VALUE -- Not present Test Performed by: [place] [address] Lead Pony Rider: Chapin Regalado III, M.D. R 75 It is recognized that currently available assays for the detection of antibodies to HIV-1 and/or HIV-2 may not detect all infected individuals. HIV antibodies may be undetectable in some stages of the infection and in some clinical conditions. The performance of this assay has not been established for populations of infants or children. Assayed by Chemiluminescence Microparticle Immunoassay on the Siemens Advia Centaur CP. Values obtained with different methods or kits cannot be used interchangeably.The diagnostic specificity of the ADVIA Centaur 1/O/2 Enhanced assay in the low risk population was 99.90% (6052/6058) with a 95% confidence interval of 99.78 to 99.96%. 76 >59 mL/min/1.73m2 77 >59 mL/min/1.73m2 Note: Persistent reduction for 3 months or more in an eGFR <60 mL/min/1.73m2 defines CKD. Patients with eGFR values >=60 mL/min/1.73m2 may also have CKD if evidence of persistent proteinuria is present. Additional information may be found at www.kidney.org/professionals/kdoqi. 78 Vitamin D deficiency has been defined by the [place] [employer] and an Endocrine Society practice guideline as a level of serum 25-OH vitamin D less than 20 ng/mL (1,2). The Endocrine Society went on to further define vitamin D insufficiency as a level between 21 and 29 ng/mL (2). 1. IOM ([place] [employer]). 2010. Dietary reference intakes for calcium and D. [place]: The National Academies Press. 2. Kaelyn MF, Clhoe GARCIA, Anibal GRACIA, et al. Evaluation, treatment, and prevention of vitamin D deficiency: an Endocrine Society clinical practice guideline. JCEM. 2010; 96(0):7181-30. Procedures Date CPT Code Description Status Comment 11/05/2016 Colonoscopy Completed EGD biopsies neg for h.pylori. Colon biopsies showed healed colitis. Repeat 2026. 09/21/2014 79778 Therapeutic,Prophylactic,Or Completed Diagnostic Inj,SC/Im Specify Drug 08/17/2014 09844 Therapeutic,Prophylactic,Or Completed Diagnostic Inj,SC/Im Specify Drug 07/14/2014 81900 Therapeutic,Prophylactic,Or Completed Diagnostic Inj,SC/Im Specify Drug 04/08/2013 12909 Excision Of Lesion Completed (Trunk,Arm,Leg) .6 To 1 CM. 04/08/2013 81280 Excision Of Skin Tags-Up To Completed 15 03/01/2012 22086 Spirometry Completed Encounters Type Date Location Provider CPT E/M Dx Office Visit 12/01/2017 11:15a [facility] Becca Bailey, 13930 L02.219 ACADEMIC ASSISTANT-C E03.9 Z12.31 F41.9 Office Visit 09/04/2017 10:15a Main Office Becca Bailey ACADEMIC ASSISTANT-C 71124 J01.90 M54.13 K31.84 Office Visit 08/19/2017 9:30a [place] [address] J01.90 R04.0 Office Visit 07/16/2017 2:00p Main Office Becca Bailey ACADEMIC ASSISTANT-C 16036 L66.2 Office Visit 06/02/2017 3:30p Main Office Angel Mora III ACADEMIC ASSISTANT-C 01484 M25.512 Office Visit 05/21/2017 3:45p Main Office Becca Bailey ACADEMIC ASSISTANT-C 04489 L66.2 G47.00 Office Visit 04/10/2017 11:30a Main Office Satyawyasir Bailey, ACADEMIC ASSISTANT-C 62980 R49.0 Office Visit 02/27/2017 2:45p Main Office Shawnti Isaura Bailey, ACADEMIC ASSISTANT-C 04567 J06.9 Z23 Office Visit 11/06/2016 3:15p Main Office Shawnti Isaura Bailey, ACADEMIC ASSISTANT-C 10923 L03.90 Office Visit 09/05/2016 4:15p Main Office Shawntgabriela Bailey, ACADEMIC ASSISTANT-C 29699 K31.84 R19.7 Office Visit 06/26/2016 10:45a Main Office Satyawyasir Bailey, ACADEMIC ASSISTANT-C 19957 S29.012A J45.902 Office Visit 06/17/2016 4:00p Main Office Angel Mora III, ACADEMIC ASSISTANT-C 79570 J20.9 Office Visit 06/06/2016 1:45p [place] [address] R07.81 Office Visit 05/01/2016 8:45a Main Office Becca Bailey, ACADEMIC ASSISTANT-C 89510 J20.9 M54.5 Office Visit 03/03/2016 9:30[place] [address] J44.1 Office Visit 02/26/2016 3:45p Main Office Becca Bailey, ACADEMIC ASSISTANT-C 57926 R09.1 Office Visit 11/29/2015 3:15p Main Office Becca Bailey, ACADEMIC ASSISTANT-C 17252 J20.9 J18.9 Office Visit 11/02/2015 10:15a Main Office Shawnti Isaura Bailey, ACADEMIC ASSISTANT-C 75465 R09.1 J06.9 Office Visit 10/11/2015 10:45a Main Office Satyawnti Liv. Leo, ACADEMIC ASSISTANT-C 98465 S39.011A R53.1 Z72.0 Office Visit 09/28/2015 10:00a Main Office Shawnti Isaura Bailey, ACADEMIC ASSISTANT-C 68533 B37.9 Office Visit 08/06/2015 8:00a Main Office Satyawntgabriela Bailey, ACADEMIC ASSISTANT-C 29824 J18.9 I01.0 Office Visit 08/02/2015 3:45p Main Office Becca Bailey, ACADEMIC ASSISTANT-C 31322 J18.9 J20.9 Office Visit 07/06/2015 3:30p Main Office Becca Bailey, ACADEMIC ASSISTANT-C 22252 J18.9 J20.9 Office Visit 06/26/2015 4:30p Main Office Becca Bailey, ACADEMIC ASSISTANT-C 65604 J18.9 J20.9 B37.89 Office Visit 03/23/2015 11:00a Main Office Becca Bailey, ACADEMIC ASSISTANT-C 29106 M54.5 J02.8 E03.9 E55.9 Office Visit 12/26/2014 2:30p Main Office Becca Bailey, ACADEMIC ASSISTANT-C 05194 V74.1 616.10 112.2 Office Visit 12/05/2014 10:00a Main Office Becca Bailey, ACADEMIC ASSISTANT-C 28368 486 466.0 Office Visit 09/21/2014 8:45a Main Office Becca Bailey, ACADEMIC ASSISTANT-C 40967 V70.0 616.10 477.9 V76.10 780.79 266.2 Office Visit 08/17/2014 10:15a Main Office Becca Bailey, ACADEMIC ASSISTANT-C 35782 311 466.0 281.1 266.2 Office Visit 07/14/2014 9:30a Main Office Becca Bailey, ACADEMIC ASSISTANT-C 45797 714.0 356.8 780.79 266.2 Office Visit 04/06/2014 11:45a Main Office Becca Bailey, ACADEMIC ASSISTANT-C 39321 053.9 Office Visit 03/13/2014 3:45p Main Office Becca Bailey, ACADEMIC ASSISTANT-C 46730 486 V04.81 Office Visit 01/17/2014 11:00a Main Office Becca Bailey, ACADEMIC ASSISTANT-C 47550 780.52 300.00 787.91 Office Visit 12/08/2013 3:15p Main Office Becca Bailey, ACADEMIC ASSISTANT-C 41021 780.52 305.1 300.00 053.29 V05.8 V05.3 Office Visit 08/17/2013 10:15a Main Office Rose Rosenthalkelvey, ACADEMIC ASSISTANT-C 07415 486 Office Visit 07/28/2013 10:00a Main Office Becca Bailey, ACADEMIC ASSISTANT-C 70037 486 Office Visit 06/17/2013 3:30p Main Office Becca Bailey, ACADEMIC ASSISTANT-C 25887 486 308.9 714.0 788.1 Office Visit 05/02/2013 11:45a Main Office Becca Bailey, ACADEMIC ASSISTANT-C 08010 724.5 308.9 Office Visit 04/15/2013 10:45a Main Office Becca Bailey, ACADEMIC ASSISTANT-C 71745 724.5 308.9 238.2 Office Visit 04/01/2013 11:00a Main Office Becca Bailey, ACADEMIC ASSISTANT-C 21428 611.9 780.51 782.9 V04.81 Office Visit 03/11/2013 3:00p Main Office Becca Bailey, ACADEMIC ASSISTANT-C 09143 486 Office Visit 03/08/2013 10:00a Main Office Becca Bailey, ACADEMIC ASSISTANT-C 63287 486 942.20 Office Visit 02/04/2013 10:15a Main Office Becca Bailey, ACADEMIC ASSISTANT-C 10999 724.5 719.41 535.40 Office Visit 01/19/2013 9:30a Main Office Brianna Saravia M.D. 73847 714.0 719.41 Office Visit 01/07/2013 11:00a Main Office Becca Bailey, ACADEMIC ASSISTANT-C 51076 714.0 535.40 616.10 V06.1 Office Visit 12/17/2012 4:15p Main Office Rose Jerome, ACADEMIC ASSISTANT-C 63391 786.50 Office Visit 11/26/2012 10:45a Main Office Becca Bailey, ACADEMIC ASSISTANT-C 69953 789.09 Office Visit 11/12/2012 11:15a Main Office Becca Bailey, ACADEMIC ASSISTANT-C 21968 789.09 Office Visit 11/02/2012 3:45p Main Office Becca Bailey ACADEMIC ASSISTANT-C 28056 789.09 682.8 Office Visit 09/15/2012 11:45a Main Office Rose Cano ACADEMIC ASSISTANT-C 32087 784.0 Office Visit 08/19/2012 3:15p Main Office Satyaalbertina Delarosa Leo ACADEMIC ASSISTANT-C 20877 308.3 Office Visit 08/10/2012 10:00a Main Office Satyakatieyasir Isaura Leo ACADEMIC ASSISTANT-C 70863 724.5 Office Visit 06/11/2012 3:15p Main Office Marandagabriela Delarosa Leo ACADEMIC ASSISTANT-C 54117 466.0 Office Visit 05/27/2012 4:45p Main Office Becca Isaura Leo ACADEMIC ASSISTANT-C 73948 372.03 719.47 714.0 Office Visit 04/30/2012 2:30p Main Office Becca LivSerena Bailey ACADEMIC ASSISTANT-C 45059 727.43 726.33 724.5 Office Visit 04/13/2012 9:15a Main Office Becca Isaura Leo ACADEMIC ASSISTANT-C 21355 850.9 Office Visit 03/29/2012 2:30p Main Office Becca LivSerena Bailey ACADEMIC ASSISTANT-C 31499 536.3 724.5 616.10 V04.81 Office Visit 03/01/2012 11:45a Main Office Becca LivSerena Bailey ACADEMIC ASSISTANT-C 98737 493.00 794.8 268.9 Office Visit 01/30/2012 2:15p Main Office Becca Bailey ACADEMIC ASSISTANT-C 20208 555.9 999.49 733.99 780.51 493.00 691.8 Plan of Care Future Appointment(s):01/08/2018 2:15 pm - AJ Thurman-C at Main Bstrlo8612/18/2017 - Kj Spence, MDM54.2 CervicalgiaComments:The MRI report I reviewed showed some cervical canal stenosis. Now after her fall her symptoms have all gotten worse. She wants a repeat MRI, but it makes more sense to me to have her seen by Neurosurgery first to determine if this is necessary.Follow up: Refer to Dr. Campo.M29.445 Pain in right shoulder
--- OUTSIDE RECORDS SUMMARY | 2017-12-30 14:09 | XMS REPORT ---
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 [address] Group Name: [employer] [id number] PayID: [id number] Medigap Part B Effective: Policy Number: Aetna(Open Choice) Talib Thompson 2012 [id number] Expires: 2013 Group Number: [id number] [address] PayID: [id number] [place] [address] Medigap Part B Effective: 2013 Policy Number: Melisa [facility] Richard Thompson [id number] Group Number: [id number] [address] [address] Group Name: [place] [id number] PayID: [id number] Medicare Primary Effective: Policy Number: Medicare - [place] Richard Thompson 2006 [id number] Umd PayID: [id number] [address] [place] [address] Problems Date Description Provider Status Onset: 05/27/2012 Rheumatoid arthritis Shawnti R. Storm, [employer] Active Social History Type Date Description Comments Marital Status Lives With Spouse Lives With Son 2 sons Celia and Noam, daughter is in [place] Diet Healthy, Well Balanced "sucks shit" she [...] Status Severity Comments 01/30/2012 Penicillins active 01/30/2012 Adolfo active 01/30/2012 Papaya active 01/30/2012 Bee Sting active 01/30/2012 Humira active 01/30/2012 Enbrel active 01/30/2012 Albuterol active jitters/tachycardia 03/29/2012 Hydrocodone active rash/hives/itchy mouth Medications Medication Date Status Form Strength Qnty SIG Indications Ordering Provider Bactrim DS 12/01 Hx Tablets 800-160mg 20tab 1 by mouth L02.219 Satyawnti R. /2017 s twice a Storm, - day for [employer] 12/31 infection Bethanechol 09/04 Active Tablets 25mg 120ta take 1 K31.84 Satyawnti RSerena Chloride bs tablet by Storm, mouth four [employer] times daily - before meals & nightly. Bactroban 09/04 Active Cream 2% 30[facility] affected [facility], area three [employer] times a day as needed Pulmicort 07/16 Active Aerosol 180mcg/Ac 1unit inhale 1 Shawnti RSerena Flexhaler t s puff by Storm, mouth 2 [employer] times per day for asthma Tizanidine HCL 06/02 Active Tablets 4mg 30tab take 12-1 M25.512 Angel s tablet by Brave mouth III, [employer] every 8 hours as needed for muscle spasm Vitamin D 05/21 Active Capsules [id number] 14cap take 1 Shawnti R. (Ergocalciferol) s capsule by Storm, mouth [employer] weekly Acyclovir 12/30 Active Tablets 400mg 90tab take 1 Shawnti R. s tablet by Storm, mouth 3 [employer] times a day Ketoconazole 12/29 Active Cream 2% 60gm apply to B37.9 Shawnti R. rash on [facility], breast/abd [employer] omen every day as needed Omeprazole 09/[address] 20mg 30cap 1 by mouth Shawnti R. s twice [facility], daily [employer] Singulair 06/26 Active Tablets 10mg 30tab Take 1 J45.902 Shawnti R. s Tablet By Storm, Mouth [employer] Every Night AT Bedtime For Asthma/All ergies Xopenex HFA 11/28 Active Aerosol 45mcg/Act 15uni Take 2 J20.9 wnti R ts Puffs [facility], Every 4 To [employer] 6 Hours as Needed For Shortness Of Breath , Wheeze Or Cough Flonase Allergy 06/22 Active Suspension 50mcg/Act 48uni use 2 wnti R. ts sprays in [facility], each [employer] nostril every day Nebulizer 04/05 Active Device 1unit use with J44.9 Shawnti R. s albuterol [facility], for [employer] breathing dx:j44.9 Soma 03/23 Active Tablets 350mg 60tab 1 by mouth M54.9 Rose s two times Jerome, a day as [employer] needed muscle spasm Wellbutrin XL 02/01 Active Tablets ER 300mg 30tab Take 1 wnti R. 24HR s Tablet By [facility], Mouth [employer] Every Morning For Depression And Smoking Xopenex 12/05 Active Nebulizer 1.25mg/3M 72ml one vial J20.9 Shawnti R. /2014 L via [facility], nebulizer [employer] every 4 hours if needed for breathing Zofran Odt 11/16 Active Tablets 8mg 60tab Take 1 R07.9 Shawnti R. /2014 Dispers s Tablet By Storm, Mouth 3 [employer] Times A Day as Needed For Nausea Levothyroxine 09/25 Active Tablets 25mcg 90tab Take One Shawnti R. s Tablet By Storm, Mouth [employer] Every Day DO Not Take With Vitamins Valacyclovir HCL 04/06 Active Tablets 1gm 21tab 1 by mouth B02.9 Shawnti R. /2013 s three Storm, times [employer] daily for 7 days Ipratropium 03/08 Active Solution 0.02% 150ml one vial J18.[address] via Storm, nebulized [employer] treatment four times a day as needed breathing Bentyl 11/26 Active Tablets 20mg 120ta 1 by mouth Shawnti R. bs four times Storm, a day as [employer] needed stomach pain/bloat ing Levalbuterol HCL 06/11 Active Nebulizer 1.25mg/3M 25uni use one Shawnti R. L ts vial in Storm, nebulizer [employer] q4hr as needed shortness of breath, wheeze Valium 01/29 Active Tablets 5mg 40for 1po twice wnti R. ty a day as Storm, needed [employer] panic/anxi ety Epipen 2-Tu 01/29 Active Solution 0.3mg/0.3 6unit use if i R. Auto-Inject ML s needed for Storm, bee sting [employer] Topamax 01/29 Active Tablets 100mg 180ta take 1 wnti R. bs tablet by Storm, mouth [employer] twice a day Gabapentin 01/29 Active Capsules 300mg 240ca take 2 nti R. ps capsules Storm, by mouth 4 [employer] times a day Tudorza Pressair Active Aerosol 400mcg/Ac bid Debbie shahnaz De León MD Oxycodone HCL Active Capsules 5mg 10cap 1 by mouth Shawnti R. / s five times Storm, daily for [employer] pain Oxycontin Active Tab ER 12H 10mg 4tabs 1 by mouth Shawnti R. / Abuse-Det twice a Storm, day for [employer] chronic pain Plaquenil Active Tablets 200mg 2 tabs by Unknown /0000 mouth every day for one week, and then 1 tab by mouth every day after that. Methotrexate Active Solution 50mg/2ML Inject Unknown Sodium (PF) / once a week on Thursday. In abdomen. Erythromycin Active Tablets 250mg Take 1 Unknown Base 0000 Tablet By Mouth 4 Times A Day For 14 Days Leflunomide Active Tablets 20mg Take 1 Unknown /0000 Tablet By Mouth Every Day Bactrim DS 09/04 Hx Tablets 800-160mg 6tabs 1 by mouth J01.90 Shawnti R. /2017 twice a Storm, - day for [employer] 09/14 infection Doxycycline 08/19 Hx Tablets 100mg 20tab 1 tab by J01.90 Kj Hyclate s mouth [place], - twice a MD Bactroban 07/16 Hx Cream 2% 30gm apply to L66.2 wnti R. affected Storm, - area three [employer] 09/04 times a day as needed Flovent HFA 07/09 Hx Aerosol 220mcg/Ac 12uni inhale one Shawnti R. t ts puff by Storm, - mouth [employer] 07/16 twice a day Pulmicort 05/26 Hx Aerosol 180mcg/Ac 1unit inhale 1 Shawnti R. Flex t s puff by Storm, - mouth 2 [employer] 07/09 times per day for asthma Bentyl 05/06 Hx Capsules 10mg 120ca 1 by mouth Shawnti R. /2016 ps four times Storm, - a day as [employer] 05/11 needed stomach pain/bloat ing Bactrim DS 11/06 Hx Tablets 800-160mg 20tab 1 by mouth L03.90 Shawnti R. /2016 s twice a Storm, - day for [employer] 11/16 infection Ranitidine 150 07/02 Hx Tablets 150mg 60tab 1 by mouth Shawnti R. Maximum Strength s twice Storm, - daily for [employer] 09/05 stomach acid Zyrtec Allergy 06/20 Hx Tablets 10mg 90tab 1 by mouth J30.9 Shawnti R. /2016 s daily for Storm, - allergies [employer] 07/02 Lansoprazole 06/[address] 30mg 30cap 1 po Shawnti R. s daily..... Storm, - .or PPI of [employer] 09/05 company's choice Omeprazole 06/[address] 40mg 90cap 1 by mouth Shawnti R. s every day Storm, - for [employer] 06/20 gastritis Doxycycline 06/17 Hx Tablets 100mg 20tab 1 tab by J20.9 Angel Hyclate s mouth Brave - twice a III, [employer] Prednisone 06/17 Hx Tablets 20mg 20tab 3 by mouth J20.9 Angel s every day Morgan - x 3days, 2 III, [employer] 09/05 by mouth every day x 3 days, 1 by mouth every day x 3 days, 1/2 by mouth every day x 4 days Guaifenesin ac 06/17 Hx Syrup 100-10mg/ 200un take 1-2 J20.9 Angel 5ML its teaspoon Brave - by mouth III, [employer] 09/05 at bedtime for cough Chantix Starting 05/15 Hx Tablets 0.5mg X 60tab one by Becca RSerena Month 11 & 1 mg s mouth Storm, - X 42 twice a [employer] , per package directions Prednisone 05/01 Hx Tablets 20mg 20tab 3 by mouth J20.9 Shawnti R. s every day Storm, - x 3days, 2 [employer] 05/11 by mouth every day x 3 days, 1 by mouth every day x 3 days, 1/2 by mouth every day x 4 days Cheratussin ac 05/01 Hx Syrup 100-10mg/ 236ml 1 or 2 J20.9 Satyawnti R. 5ML teaspoon Storm, - by mouth [employer] 05/11 q4hr needed cough Nebulizer Kit 04/11 Hx use as wnti R. /2015 directed Storm, - [employer] 09/05 Doxycycline 03/06 Hx Tablets 100mg 20tab 1 tab by Becca Delarosa Hycl s mouth , - twice a [employer] Azithromycin 03/03 Hx Tablets 250mg 6tabs take 2 J44.1 Kj tablets by Jordy, - mouth one MD 05/01 time then take one daily for 4 days Prednisone 02/25 Hx Tablets 20mg 13tab 3 by mouth R09.1 wnti R. s every day , - x 2days, 2 [employer] 05/01 by mouth every day x 2 days, 1 by mouth every day x 2 days, / by mouth every day x 2 days Azithromycin 11/29 Hx Tablets 250mg 6tabs take 2 tablets Jerome, - today then [employer] 03/03 1 tablet daily for the next 4 days Biaxin 11/28 Hx Tablets 500mg 20tab 1 po bid J18.9 wnti R. s for 10 , - days, do [employer] 12/08 not take Zofran while on this medication Azithromycin 11/01 Hx Tablets 250mg 6tabs 2 by mouth J06.9 wnti R. today then , - 1 by mouth [employer] 11/11 daily for 4 days Nicotrol 10/10 Hx Inhaler 10mg 168un puff 20 Z72.0 nt R. its minutes , - every 2-3 [employer] 09/05 hours daily for 12 weeks; then gradually wean down over 12 weeks Ketoconazole 09/27 Hx Cream 2% 60gm apply to B37.9 nt R. rash on , - breast/abd [employer] 09/05 omen every day as needed Pulmicort 08/05 Hx Suspension 1mg/2ML 1box inhale the nti R. 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 /2015 s daily for Storm, - 10 days [employer] 08/11 for pneumonia Prednisone 08/01 Hx Tablets 20mg 20tab 3 by mouth J20.9 Shawnti R. /2015 s every day Storm, - x 3days, 2 [employer] 08/11 by mouth /2015 every day x 3 days, 1 by mouth every day x 3 days, 1/2 by mouth every day x 4 days Cheratussin ac 08/01 Hx Syrup 100-10mg/ 118ml 1 or 2 J20.9 Kj /2015 5ML teaspoon [place], - by mouth MD 05/01 q4hr as needed cough Prednisone 07/06 Hx Tablets 20mg 13tab 3 by mouth J20.9 Shawnti R. /2015 s every day Storm, - x 2days, 2 [employer] 07/16 by mouth every day x 2 days, 1 by mouth every day x 2 days, 1/2 by mouth every day x 2 days Guaiatussin ac 07/06 Hx Syrup 100-10mg/ 118ml 1 teaspoon J20.9 Shawnti R. 5ML by mouth Storm, - q4hour as [employer] 07/16 needed cough and sore throat Levaquin 06/29 Hx Tablets 750mg 7tabs 1 po daily Shawnti R. for 7 days Storm, - for [employer] 08/01 pneumonia /2016 Azithromycin 06/26 Hx Tablets 250mg 6tabs 2 by mouth J18.9 Shawnti R. /2015 today then Storm, - 1 by mouth [employer] 07/06 daily for 4 days for pneumonia Guaiatussin ac 06/26 Hx Syrup 100-10mg/ 118ml 1 teaspoon J20.9 Shawnti R. 5ML by mouth Storm, - q4hour as [employer] 07/06 needed cough and sore throat Prednisone 06/26 Hx Tablets 20mg 13tab 3 by mouth J20.9 Shawnti R. /2015 s every day Storm, - x 2days, 2 [employer] 07/06 by mouth every day x 2 days, 1 by mouth every day x 2 days, 1/2 by mouth every day x 2 days Diflucan 06/26 Hx Tablets 100mg 16tab 2 po today wnti R. /2015 s then 1 po , - daily for [employer] 07/06 14 Ergocalciferol 04/23 Hx Capsules [id number] 8caps 1 by mouth Shawnti R. twice , - weekly for [employer] 06/17 Azithromycin 03/23 Hx Tablets 250mg 6tabs 2 by mouth Shawnti R. /2014 today then Storm, - 1 by mouth [employer] 04/02 daily for 4 days Acyclovir 01/25 Hx Tablets 400mg 90tab take 1 wnti R. s tablet by Storm, - mouth 3 [employer] 09/05 times day Nystatin 12/26 Hx Powder [id number] 30gm apply to 112.2 wnti R. t/GM affected Storm, - area three [employer] 09/05 times day until resolved Ergocalciferol 12/22 Hx Capsules [id number] 8caps 1 by mouth Shawnti R. twice , - weekly for [employer] 01/21 Prednisone 12/05 Hx Tablets 20mg QS 3 by mouth 466.0 wnti R. /2014 every day Storm, - x 2days, 2 [employer] 03/23 by mouth /2014 every day x 2 days, 1 by mouth every day x 2 days, 1/2 by mouth every day x 2 days Levofloxacin 12/05 Hx Tablets 750mg 10tab 1 by mouth 486 Shawnti R. s daily for Storm, - 10 days [employer] 12/15 for pneumonia Ergocalciferol 09/25 Hx Capsules [id number] 8caps 1 by mouth Shawnti R. twice Storm, - weekly for [employer] 10/25 Levocetirizine 09/21 Hx Tablets 5mg 30tab 1 by mouth J30.9 wnti R. Dihydrochloride s every day , - for [employer] 06/20 allergies, replaces zyrtec Clotrimazole 09/21 Hx Cream 2% 21gm 1 616.10 Shawnti R. /2014 applicator Leo, - full into [facility] 10/01 the QHS for 3 nights Bupropion HCL ER 08/17 Hx Tablets ER 300mg 30tab 1 by mouth Shawnti R. (XL) /2014 24HR s every Storm, - morning [employer] 02/01 for depression and smoking Prednisone 08/17 Hx Tablets 20mg QS 3 by mouth 466.0 Shawnti R. /2014 every day Storm, - x 2days, 2 [employer] 08/27 by mouth every day x 2 days, 1 by mouth every day x 2 days, 1/2 by mouth every day x 2 days Lidocaine 04/06 Hx Solution 2% 100ml paint up 053.9 Shawnti R. Viscous to 1 Storm, - teaspoon [employer] 09/05 on sore area three times a day as needed Amitriptyline 12/12 Hx Tablets 25mg 180ta 1 or 2 po 780.52 Shawnti R. HCL /2013 bs QHS for Storm, - sleep [employer] 03/23 Seroquel 12/08 Hx Tablets 50mg 60tab take one 780.52 Shawnti R. s tablet by Leo, - mouth at [facility]- 12/12 bedtime, can increase to 2 tablets before bed if needed for slep and anxiety Carafate 08/21 Hx Tablets 1gm 120ta take 1 Shawnti R. /2013 bs tablet by Leo, - mouth 4 [facility] 04/10 times day Prednisone 08/17 Hx Tablets 20mg 21tab take 3 s tablets x Jerome, - 3 days, [employer] 08/17 then tablets x 3 days,then 1 tablet x 3 days, then 1/2 tablet x 3 days. Levofloxacin 08/17 Hx Tablets 750mg 10tab 1 tablet Rose s po qd x 10 Jerome, - days [employer] 08/17 Azithromycin 07/28 Hx Tablets 250mg 6tabs 2 po today 486 Satyawnti R. then 1 po Storm, - daily for [employer] 08/17 4 Baclofen 04/15 Hx Tablets 10mg 90tab Take 1 724.5 Shawnti R. s Tablet By Storm, - Mouth 3 [employer] 03/23 Times Day as Needed Trazodone HCL 04/01 Hx Tablets 100mg 180ta 2 po qhs 780.52 Shawnti R. bs for sleep Storm, - and [employer] 12/08 anxeity Omeprazole 03/[address] 20mg 60cap take one Shawnti R. s capsule by Storm, - mouth [employer] 06/19 twice a day before meals Silvadene 03/08 Hx Cream 1% 1tube apply to 942.20 Shawnti R. painful Storm, - area up to [employer] 09/05 times daily if needed Prednisone 03/08 Hx Tablets 20mg QS 3 po qd x 486 Shawnti R. 2days, 2 Storm, - po qd x 2 [employer] 08/17 days, po qd x 2 days, 12 po qd x 2 days Atrovent HFA 03/08 Hx Aerosol 17mcg/Act 12.90 2 puffs 486 wnti R. 0gm qid for Storm, - breathing [employer] 03/10 Tizanidine HCL 01/19 Hx Tablets 4mg 60tab take one 719.41 Brianna /2013 s po every 6 M. Saravia, - hours as M.D. 03/23 needed for pain Nystatin 01/07 Hx Cream [id number] 30gm apply thin 616.10 Shawnti R. t/GM layer to Storm, - affected [employer] 12/26 area tid /2014 until resolved Align 11/26 Hx Capsules 4mg 30cap one po qd 786.50 Shawnti R. s Storm, - [employer] 09/05 Tigan 11/26 Hx Capsules 300mg 120ca Take 1 786.50 Shawnti R. ps Capsule By Storm, - Mouth 4 [employer] 11/16 Times Day as Needed For Nausea Promethazine HCL 11/12 Hx Suppository 25mg 12uni 1 pr Q6 HR 786.50 Shawnti R. ts prn nausea , - [employer] 11/26 Flonase 09/03 Hx Suspension 50mcg/Act 48uni Use 2 Shawnti R. ts Sprays In [facility], - Each [employer] 06/22 Nostril /2016 Every Day Zofran Odt 08/10 Hx Tablets 8mg 60tab 1 po bid wnti R. Dispers s prn nausea , - [employer] 08/10 Zofran Odt 08/10 Hx Tablets 8mg 60tab Take 1 786.50 wnti R. Dispers s Tablet By Storm, - Mouth [employer] 11/12 Twice A Day as Needed For Nausea Robaxin-750 08/10 Hx Tablets 750mg 60tab Take 1 724.5 nt R. s Tablet By , - Mouth 3 [employer] 04/15 Times A Day as Needed For Muscle Spasm /Tightness Medrol Dosepak 06/11 Hx Tablets 4mg 1Pack take oraly per , - package [employer] 06/21 Guiatuss ac 06/11 Hx Syrup 100-10mg/ 150ml 1 tsp po wnti R. 5ML q4hr prn Storm, - cough [employer] 08/10 Azithromycin 06/11 Hx Tablets 250mg 6tabs 2 po today nt. then 1 po , - daily for [employer] 12/17 4 Tessalon Perles 06/11 Hx Capsules 100mg 60cap 1 or 2 po Shawnti R. s tid prn Storm, - cough [employer] 01/19 Erythromycin 05/27 Hx Ointment 5mg/GM 1gm opth 372.03 Shawnti R. ointment Storm, - to right [employer] 12/17 eye times daily for 5 days or until healed Tessalon Perles 05/11 Hx Capsules 100mg 30cap 1 po tid Shawnti R. s prn cough Storm, - [employer] 06/11 Premarin 03/29 Hx Cream 0.625mg/G 30gm 06/02 616.10 Shawnti R. M applicator Storm, - to vaginal [employer] 03/23 area 2- times each week Dilaudid 03/29 Hx Tablets 4mg 20twe 1 po bid 724.5 wnti R. nty prn severe Storm, - pain [employer] 12/08 Rid 03/16 Hx Liquid 0.33-4% 1Bott apply to Shawnti R. le scalp and Storm, - hair, [employer] 01/19 leave in for 10 minutes, rinse then comb hair wiht fine tooth comb. repeat in one week if needed Asmanex 30 03/01 Hx Aerosol 220mcg/In 1unit use 1 493.00 Shawnti R. Metered Doses h s inhalation Storm, - by mouth [employer] 03/29 every day. rinse mouth after using. Ergocalciferol 02/02 Hx Tablets 50,000Uni 8tabs 1 po twice Shawnti R. Tablets ts weekly for Storm, - vitamin d [employer] 03/29 deficiency , repeat level in 4 weeks Acyclovir 01/29 Hx Capsules 200mg 180ca 2 po daily nt R. ps Storm, - [employer] 01/25 Bupropion HCL ER 01/29 Hx Tablets ER 150mg 1 po bid wnti R. 12HR Storm, - [employer] 03/29 Zofran Odt 01/29 Hx Tablets 8mg 1 po bid wnti R. Dispers Storm, - [employer] 08/10 Leflunomide 01/29 Hx Tablets 20mg 1 po daily wnti R. Storm, - [employer] 11/26 Folic Acid 01/29 Hx Tablets 1mg 1 po qd wnt R. Storm, - [employer] 01/19 Xopenex HFA 01/29 Hx Aerosol 45mcg/Act 6unit 2 puffs wnti R. s q4-6hr prn Storm, - shortness [employer] 05/21 of breath, wheeze, cough. Prednisone 01/29 Hx Tablets 20mg 15tab 1 po tid Satyawnti R. s for 5 days Storm, - [employer] 01/19 Lactulose 01/29 Hx Solution 20GM/30ML currently Shawnti R. taking Leo, - 90ml daily [employer] 01/19 Lac-Hydrin Five 01/29 Hx Lotion 5% 226gm [facility] Storm, - bid [employer] 09/05 Fluocinonide 01/29 Hx Ointment 0.05% 90uni [facility] Leo, - to [employer] 09/05 affeceted area QHS and cover with gloves/soc ks Trazodone HCL 01/29 Hx Tablets 50mg 90tab Take 06/02 780.51 Shawnti R. s To 1 Leo, - Tablet By [employer] 04/01 Mouth AT Bedtime as Needed Pepcid 01/29 Hx Tablets 20mg 30tab Take 1 [facility] By [facility], - Mouth [employer] 07/02 Every Day For GERD Bethanechol 01/29 Hx Tablets 25mg 120ta take 1 [facility] tablet by [facility], - mouth four [employer] 10/06 daily - before meals & nightly. Reglan 01/29 Hx Tablets 10mg 360ta take 1 Shawnti R. bs tablet by Leo, - mouth 4 [employer] 05/21 times day Tizanidine HCL Hx Tablets 4mg 120ta Take 1 06/02 724.5 Shawnti R. /0000 bs Tablets By Leo, - Mouth 3 [employer] 08/10 Times A Day Sucralfate Hx Tablets 1gm 120ta 1 tab po Shawnti R. /0000 bs qid Leo, - [employer] 08/21 Oxycodone HCL 0000 Hx Tablets 5mg Unknown /0000 - 04/10 Bupropion HCL ER 00/00 Hx Tablets ER 150mg Take 1 Unknown (XL) /0000 24HR Tablet By - Mouth 08/17 Every Day /2014 Vitamin D3 Ultra Hx Capsules 5000Unit 1 by mouth Unknown Strength /0000 every - other day 05/21 Medications Administered in Office Medication Date Status Form Strength Qnty SIG Indications Ordering Provider TB,Intradermal Administered Injection Lab and (PPD, [place]) 015 Office Services TB,Intradermal Administered Injection Shawnti R. (PPD, [place]) 015 Storm, [employer] Vitamin B-12 Administered Injection Shawnti R. Injection-To 015 Storm, 1000mcg [employer] Vitamin B-12 Administered Injection Shawnti R. Injection-To 015 Storm, 1000mcg [employer] Vitamin B-12 Administered Injection Shawnti R. Injection-To 015 Storm, 1000mcg [employer] Immunizations CPT Code Status Date Vaccine Lot # [id number] Given 02/27/2017 Pneumovax 23 (PPSV23) 65+ years or high risk 2 to [id number] 62 year old 69611 Given 02/27/2017 Influenza Virus Vaccine, Quadrivalent, 3 Yr > [id number] Quad, Preserv Free 53943 Given 02/26/2016 Influenza Virus Vaccine, Quadrivalent, 3 Yr > Quad, Preserv Free 76325 Given 02/03/2015 Influenza Virus Vaccine, Quadrivalent, 3 Yr > Quad, Preserv Free 01560 Given 03/13/2014 Influenza Virus Vaccine, Quadrivalent, 3 Yr > [id number] Quad, Preserv Free 01638 Given 12/08/2013 Hep B Vaccine Adult, 3 Dose age >20 yrs [id number] 99947 Given 12/08/2013 Zoster Vaccine [id number] 63737 Given 12/08/2013 Hepatitis A, Adult [id number] 12039 Given 04/01/2013 Prevnar-13 Pneumococcal Conjugate Vaccine [id number] 92919 Given 04/01/2013 Influenza Vaccine-Preservative Free 3 Yrs And [id number] Above 67627 Given 01/07/2013 Tdap (Adacel) [id number] 63187 Given 03/29/2012 Influenza Vaccine-Preservative Free 3 Yrs And [id number] Above Vital Signs Date Vital Result Comment 12/01/2017 Weight 193.00 lb Weight in kg's [...] Test Date Test Result H/L Range Note Laboratory test finding 12/01/2017 TSH (Thyroid Stim Horm) <pending> Hemoglobin A1c (Glyco HGB) <pending> Comp Metabolic Panel 06/09/2017 Sodium 137 mmol/L [...] Egfr Non- 78.8 >60 Egfr 101.4 >60 1 Laboratory test finding 06/09/2017 C Reactive Protein 5.83 mg/L High < 5.00 2 CBC Auto Diff 06/09/2017 White Blood Count [...] Sed Rate 65 mm/Hr High 0- 14 3 Flu Test A, B, Or A & B,Binaxn 06/17/2016 Influenza A Antigen neg Influenza B Antigen neg Urine DIP 06/06/2016 Leukocytes TRACE Neg Urine Nitrites NEG Neg Urobilinogen NORM Norm Total Protein, Urine NEG Neg Urine pH 5 5-6 Urine Blood ABOUT 50 Neg Specific [facility] 1.015 1.01-1.02 Urine Ketones NEG Neg Urine [...] Egfr Non- 78.0 >60 Egfr 100.3 >60 4 Laboratory test finding 02/14/2016 C Reactive Protein 39.47 mg/L High < 5.00 5 CBC Auto Diff 02/14/2016 White Blood Count [...] High 0- 14 Immunoglobulin G TNP () 6 Immunoglobulin A 781 mg/dL 61 - 356 7 Igg Subclasses 02/14/2016 Total IgG 1470 mg/dL 767 - 1590 Immunoglobulin G1 1090 mg/dL 341 - 894 Immunoglobulin G2 248 mg/dL 171 - 632 Immunoglobulin G3 66.8 mg/dL 8 Immunoglobulin G4 57.8 mg/dL 9 S.Pneumoniae Igg AB 23 02/14/2016 S. pneumoniae [...] Type 33F IgG AB 0.7 g/mL >=1.7 10 Laboratory test finding 11/22/2015 TSH (Thyroid Stimulating 1.99 ?IU/mL 0.34-5.60 Horm) Vitamin D Total 25(Oh) 36.4 ng/mL 30-50 Laboratory test finding 10/28/2015 Troponin I 0.01 ng/mL <0.03 11 Urinalysis Profile 10/28/2015 Urine Color Straw Urine Appearance Clear Urine Specific [facility] 1.006 Low 1.010-1.030 Urine pH 6.0 5-9 [...] Egfr Non- 72.7 >60 Egfr 93.5 >60 12 Laboratory test finding 10/28/2015 CRP High Sensitivity 39.87 mg/L 13 Troponin I 0.01 ng/mL <0.03 14 B-Type Natriuretic Peptide BNP 59 pg/mL 15 CBC Auto Diff 10/28/2015 White Blood Count [...] Egfr Non- 73.7 >60 Egfr 94.8 >60 16 Rapid Influenza A & B 08/03/2015 Influenza A Molecular NEGATIVE Negative 17 Antigen Influenza B Molecular NEGATIVE Negative CBC [...] finding 08/03/2015 Lactic Acid 1.0 mmol/L 0.5-2.0 18 Comp Metabolic Panel 08/03/2015 Sodium 138 mmol/L [...] Egfr Non- 88.2 >60 Egfr 113.5 >60 19 Laboratory test finding 08/03/2015 Troponin I 0.01 ng/mL <0.03 20 Amylase 19 U/L Low 29-103 Lipase 10 U/L Low 11.0-82.0 Blood Culture SEE RESULT BELOW 21 Laboratory test finding 07/14/2015 Erythrocyte Sed Rate [...] Reactive Protein 11.42 mg/L High < 5.00 22 Comp Metabolic Panel 07/14/2015 Sodium 136 mmol/L [...] Egfr Non- 76.9 >60 Egfr 98.9 >60 23 Laboratory test finding 04/20/2015 TSH (Thyroid Stimulating 3.50 ?IU/mL 0.34-5.60 Horm) Vitamin D Total 25(Oh) 23.1 ng/mL Low 30-50 Laboratory test 03/23/2015 Strep Screen NEG Neg finding Laboratory test 12/26/2014 Culture Genital & SEE RESULT BELOW 24 finding Sensitivity Laboratory test 12/22/2014 TSH (Thyroid 2.09 ?IU/mL 0.34-5.60 finding Stimulating Horm) Vitamin D Total 25(Oh) 25.6 ng/mL Low 30-50 Laboratory test finding 09/21/2014 Vitamin B12 > 1450 pg/mL High 180-914 25 Vitamin D Total 25(Oh) 16.3 ng/mL Low [...] test finding 09/21/2014 Pathologist Review (SEE NOTE) 26 Laboratory test finding 09/21/2014 Cytology RUN DATE: 09/22/ <SEE 27 NOTE> Human Papilloma Virus Rna Negative Negative 28 Urine Culture And 06/17/2013 Urine Culture (SEE NOTE) 29 Sensitivities GC/Chlamydia Amplified Rna 06/17/2013 GC/Chlamydia Rna (SEE NOTE) 30 Laboratory test finding 06/07/2013 Lactic Acid 2.9 mmol/L High 0.5-1.6 31 Serum Negative Negative 32 Comp Metabolic Panel 06/07/2013 Sodium 133 mmol/L [...] Egfr Non- 77.9 >60 Egfr 100.2 >60 33 Laboratory test finding 06/07/2013 Activated Partial 28.0 [...] Color Yellow Urine Appearance Clear Urine Specific [facility] 1.016 1.010-1.030 Urine Esterase Negative Negative Urine Nitrate Negative Negative Urine Urobilinogen Negative E.U./dL Negative Urine Protein Negative mg/dL Negative Urine pH 7.0 5-9 Urine Blood Trace Negative Urine Ketones Negative mg/dL Negative Urine Bilirubin Negative Negative Urine Glucose Negative mg/dL Negative Laboratory test 04/08/2013 Surgical Pathology RUN DATE: finding <SEE NOTE> Wound Culture/Sensi 04/01/2013 Wound/Misc (SEE NOTE) 35 Culture-Gram Stain CBC Auto Diff 02/28/2013 White [...] Egfr Non- 90.9 >60 Egfr 116.9 >60 36 Laboratory test finding 02/28/2013 Serum Negative Negative 37 Manual Differential 02/28/2013 Neutrophil % 65 % 38-83 Band % 1 % 0-8 Lymphocytes % 27 % 25-47 Monocytes % 4 % 0-13 Eosinophils % 3 % 0-6 RBC Morphology Normal Normal Laboratory test 12/15/2012 D Dimer Quantitative < 200 ng/mL Less Than 230 38 finding C Reactive Protein 0.6 mg/dL High [...] finding 12/15/2012 Troponin I 0.01 ng/mL 0-0.06 39 Comp Metabolic Panel 12/15/2012 Sodium 140 mmol/L [...] Egfr Non- 90.9 >60 Egfr 116.9 >60 40 Fecal Lactoferrin (Stool 11/13/2012 Fecal Lactoferrin (Stool (SEE NOTE) 41 WBC) WBC) Laboratory test finding 11/13/2012 Lactic [...] Egfr Non- 90.9 >60 Egfr 116.9 >60 42 Laboratory test finding 11/13/2012 Inr 0.99 High 0.87-0.97 Activated Partial Thrombo Time 32.3 seconds 22.18-37.18 Stool For Blood 11/13/2012 Stool Occult Blood (SEE NOTE) 43 CBC No Diff 11/12/2012 White Blood Count [...] Egfr Non- 77.9 >60 Egfr 100.2 >60 44 Laboratory test finding 11/12/2012 Amylase 32 U/L 20-120 Lipase 25 U/L 22-51 Laboratory test finding 11/12/2012 CA 125 Antigen 11.3 U/mL 2.0-35.0 45 H Pylori Iga 11/12/2012 Helicobacter pylori IgA Ab Negative Negative H pylori IgA Ab Index 7.36 46 Laboratory test finding 11/12/2012 Helicobacter pylori IgG Ab Negative Negative 47 H.Pylori Igm AB 11/12/2012 Helicobacter pylori IgM Ab Negative Negative H pylori IgM AB Index 26.20 48 Urinalysis 10/29/2012 Urine Color Yellow Urine Appearance Clear Urine Specific [facility] 1.008 Low 1.010-1.030 Urine Esterase Negative Negative [...] Egfr Non- 77.9 >60 Egfr 100.2 >60 49 Laboratory test finding 10/29/2012 Amylase 41 U/L 20-120 Lipase 26 U/L 22-51 C Reactive Protein 0.7 mg/dL High Less than 0.5 Laboratory test finding 08/08/2012 Urine Negative Negative 50 Urinalysis 08/08/2012 Urine Color Yellow Urine Appearance Clear Urine Specific [facility] 1.005 Low 1.010-1.030 Urine Esterase Negative Negative [...] Egfr Non- 77.9 >60 Egfr 100.2 >60 51 CBC Auto Diff 08/08/2012 White Blood Count [...] Egfr Non- 68.3 >60 Egfr 87.9 >60 52 Laboratory test finding 06/14/2012 Troponin I 0.04 ng/mL 0-0.06 53 C Reactive Protein 0.5 mg/dL Less than 0.5 Urinalysis 05/09/2012 Urine Color Amanda Urine Appearance Clear Urine Specific [facility] 1.020 1.010-1.030 Urine Esterase Negative Negative Urine Nitrate Negative Negative Urine Urobilinogen Negative E.U./dL Negative Urine Protein Trace mg/dL Negative Urine pH 6.0 5-9 Urine Blood Negative Negative Urine Ketones 1+ mg/dL Negative Urine Bilirubin Negative Negative 54 Urine Glucose Negative mg/dL Negative Blood Culture 05/08/2012 Blood Culture (SEE NOTE) 55 Laboratory test finding 05/08/2012 Creatine Kinase 131 U/L 0-200 CKMB 05/08/2012 CKMB In NG/ML 1.9 ng/mL 0.3-4.0 CKMB % 2.0 % 0-9 56 CKMB In NG/ML 1.9 ng/mL 0.3-4.0 CKMB % 2.0 % 0-9 57 Laboratory test finding 05/08/2012 Troponin I 0.04 ng/mL 0-0.06 58 C Reactive Protein 2.4 mg/dL High Less [...] Egfr Non- 91.3 >60 Egfr 117.5 >60 59 CBC Auto Diff 05/08/2012 White Blood Count [...] Blood Culture 05/08/2012 Blood Culture (SEE NOTE) 60 CBC Auto Diff 04/09/2012 White Blood Count [...] Color Yellow Urine Appearance Clear Urine Specific [facility] 1.005 Low 1.010-1.030 Urine Esterase Trace Negative [...] Laboratory test finding 04/09/2012 Urine Negative Negative 61 Comp Metabolic Panel 04/09/2012 Sodium 135 mmol/L [...] 1.0 1-3 Total Bilirubin 0.6 mg/dL 0.1-1.0 62 Alkaline Phosphatase 85 U/L 30-110 Alt 26 U/L 14-54 Ast 26 U/L 12-42 Egfr Non- 91.3 >60 Egfr 117.5 >60 63 Laboratory test finding 04/09/2012 Lipase 31 U/L 22-51 64 Vitamin D, 25 Hydroxy 03/29/2012 25-Hydroxy Vitamin D2 35 ng/mL 25-Hydroxy Vitamin D3 11 ng/mL 25-Hydroxy Vitamin D Total 46 ng/mL 65 Hepatitis Acute (CMC) 03/29/2012 Hepatitis C Antibody [...] Intestine 0.0 IU/L 0.0-11.0 Alp Placental NotPresent 66 Laboratory test 03/29/2012 Alkaline Phosphatase 86 U/L 30-110 finding HIV 1/2 AB Evaluation 03/29/2012 HIV 1 2 Antibody Nonreactive Nonreactive 67 Egfr (Calculated) 01/30/2012 Estimated GFR (CALCULATED) Egfr >60 68 Egfr, -Belizean >60 69 Laboratory test finding 01/30/2012 Lipase 32 U/L [...] D, 25 Oh 17.2 ng/mL Low 30.0-100.0 70 Comprehensive Metabolic 01/30/2012 Glucose 120 mg/dL High [...] 7-50 Bilirubin, Total 0.40 mg/dL 0.30-1.20 1 Because ethnic data is not always readily [...] 15-29 5 Kidney failure <15 (or dialysis) 2 Acute inflammation: >10.00 3 Please check labs 2 days before the next visit 4 Because ethnic data is not always readily [...] 15-29 5 Kidney failure <15 (or dialysis) 5 Acute inflammation: >10.00 6 Immunoglobulin G (IgG), S was cancelled on 02/15/2016 at 10:13; Test cancelled by RBS rule <IGGS2> Reason: Test IGG is cancelled due to be ordered with Test IGGS Test Performed by: [place] [address] Motel Operator: Torrey Bird II, M.D., Ph.D. 7 Test Performed by: [place] [address] Motel Operator: Torrey Bird II, M.D., Ph.D. 8 REFERENCE VALUE 18.4 - 106.0 9 REFERENCE VALUE 2.4 - 121.0 Test Performed by: [place] [address] Motel Operator: Torrey Bird II, M.D., Ph.D. 10 Either of the two following conditions would [...] developed and its performance characteristics determined by [facility] in a manner consistent with CLIA requirements. This test has not been cleared or approved by the U.S. Food and Drug Administration. Test Performed by: [place] [id number] Motel Operator: Torrey Bird II, M.D., Ph.D. 11 Reference Range and Interpretation: TnI (ng/mL) Interpretation Less Than 0.03 ng/mL Not supportive of diagnosis of [place] 0.03 - 0.50 ng/mL Indeterminate: suggest serial studies if clinically indicated. Greater than 0.5 ng/mL Consistent with diagnosis of [place] 12 Because ethnic data is not always [...] 5 Kidney failure <15 (or dialysis) 13 Low risk: <1.00 Average risk: 1.00-3.00 High risk: >3.00 14 Reference Range and Interpretation: TnI (ng/mL) Interpretation Less Than 0.03 ng/mL Not supportive of diagnosis of [place] 0.03 - 0.50 ng/mL Indeterminate: suggest serial studies if clinically indicated. Greater than 0.5 ng/mL Consistent with diagnosis of [place] 15 >100 to <200 pg/mL: likely compensated congestive heart failure (CHF) 200 to 400 pg/mL: likely moderate CHF >400 pg/mL: likely moderate to severe CHF 16 Because ethnic data is not always readily [...] 15-29 5 Kidney failure <15 (or dialysis) 17 Lean Specialist: [id number] JOJO CHAVARRIA 18 [facility] Severe Sepsis and Septic Shock Management Bundle Measure requires all lactic acids initially measuring >2.0mmol/L be repeated. 19 Because ethnic data is not always readily [...] 15-29 5 Kidney failure <15 (or dialysis) 20 Reference Range and Interpretation: TnI (ng/mL) Interpretation Less Than 0.03 ng/mL Not supportive of diagnosis of [place] 0.03 - 0.50 ng/mL Indeterminate: suggest serial studies if clinically indicated. Greater than 0.5 ng/mL Consistent with diagnosis of [place] 21 SEE RESULT BELOW Name: RICHARD THOMPSON : [address]: Mell Sexton MD Acct: [id number] Unit: [id number] AGE: 45 Location: [place] [address] Re08/04/15 Dis: 08/05/15 SEX: F Status: DIS IN SPEC: [id number] KENJI: 08/03/15-[address]: Yosef Pendleton DO REQ: [id number] RECD: 08/03/15 STATUS: MARRY FULLER DR: Becca Bailey CLEANING SUPERVISOR _ SOURCE: BLOOD,VENO SPDESC: ORDERED: Blood Cult Procedure Result Reported Site Aerobic Culture Bottle Final 08/08/15- 1423 ML No Growth Day 5 Anaerobic Culture Bottle Final 08/08/15- 1423 ML No Growth Day 5 * ML - MAIN LAB ([facility]) . END OF REPORT * ML=Testing performed at Main Lab DEPARTMENT OF PATHOLOGY, [address] [place] [address] Hamilton Barraza M.D. Director [facility] # [id number] 22 Acute inflammation: >10.00 23 Because ethnic data is not always readily [...] 15-29 5 Kidney failure <15 (or dialysis) 24 SEE RESULT BELOW Name: RICHARD THOMPSON : [address]: Becca Bailey NP Acct: [id number] Unit: [id number] AGE: 44 Location: [facility] Re12/26/14 SEX: F Status: REG REF SPEC: [id number] KENJI: 12/26/14-[address]: Becca Bailey NP REQ: [id number] RECD: 12/26/14 STATUS: COMP _ SOURCE: VAGINAL SPDESC: ORDERED: Genital Culture Procedure Result Verified Site Genital Culture Final 12/28/14- 1019 ML Organism 1 NORMAL RUPAL Quantity 3+ Routine genital cultures do not include selective agar for Neisseria gonorrhoeae. Molecular testing offers better test sensitivity and therefore is the preferred test methodology for identifying this organism. * ML - MAIN LAB ([facility]) . END OF REPORT * ML=Testing performed at Main Lab DEPARTMENT OF PATHOLOGY, [facility] [place] [address] Hamilton Barraza M.D. Director [facility] # [id number] 25 Normal Range 180 to 914 Indeterminate Range 145 to 180 Deficient Range <145 26 Mild absolute lymphocytosis. If persistent, recommend correlation with flow cytometry. Reviewed by Jodi Mason MD 27 RUN DATE: 09/22/14 [facility] LAB LIVE PAGE 1 RUN TIME: [address] [place] [address] Specimen Inquiry Name: RICH[place] THOMPSON : [address]: Becca Bailey NP Acct: [id number] Unit: [id number] AGE: 44 Location: [facility] Re09/21/14 SEX: F Status: REG REF SPEC: [id number] KENJI: 09/21/14-0944 [facility] DR: Becca Bailey NP REQ: [id number] RECD: 09/21/14-1223 STATUS: SOUT _ ORDERED: IMAGE ANALYSIS, HPV/Thin [...] System. Due to cytologic findings at the emt i/85 microscope, comprehensive manual rescreening by a Electrophysiology Tech may be required. The Pap Smear is [...] performed at Main Lab DEPARTMENT OF PATHOLOGY, [address] [place] [address] Hamilton Barraza M.D. Director [facility] # [id number] 28 The high-risk HPV types detected by the assay include: 16, 18, 31, 33, 35, 39, 45, 51, 52, 56, 58, 59, 66, and 68. 29 RUN DATE: 06/19/13 [facility] LAB LIVE PAGE 1 RUN TIME: [address] [place] [address] Specimen Inquiry Name: RICHARD THOMPSON : [address]: Becca Bailey NP Acct: [id number] Unit: [id number] AGE: 43 Location: [facility] Re06/17/13 SEX: F Status: REG REF SPEC: [id number] KENJI: 06/17/13-[address]: Becca Bailey NP REQ: [id number] RECD: 06/17/13 STATUS: RES _ SOURCE: URINE SPDESC: ORDERED: Urine Culture, GC/Chlam RNA QUERIES: Medent Number [id number] Procedure Result Verified Site Urine Culture Final 06/19/13- 0907 ML No Growth Day 2 (<1,000 CFU/mL) Chlamydia Trachomatis RNA PENDING GC (N. gonorrhoeae) RNA PENDING END OF REPORT * ML=Testing performed at Main Lab DEPARTMENT OF PATHOLOGY, [facility] [place], [place] [address] Hamilton Barraza M.D. Director [facility] Permit #[id number] 30 RUN DATE: 06/21/13 [facility] LAB LIVE PAGE 1 RUN TIME: 3512 [facility] [address] [place], [place] [address] Specimen Inquiry Name: RICHARD THOMPSON : [address]: Becca Bailey NP Acct: [id number] Unit: [id number] AGE: 43 Location: [facility] Re06/17/13 SEX: F Status: REG REF SPEC: [id number] KENJI: 06/17/[address]: Becca Bailey NP REQ: [id number] RECD: 06/17/13 STATUS: COMP _ SOURCE: URINE SPDESC: ORDERED: Urine Culture, GC/Chlam RNA QUERIES: Medent Number [id number] Procedure Result Verified Site Urine Culture Final [...] result may have adverse psychosocial impact, the [facility] recommends retesting by a method using an alternate technology. Therapeutic failure or success cannot be determined with the Aptima Combo 2 Assay since nucleic acid may persist following appropriate antimicrobial therapy. Results from the Aptima Combo 2 Assay should be interpreted CONTINUED ON NEXT PAGE * ML=Testing performed at Main Lab DEPARTMENT OF PATHOLOGY, [facility] [place], [place] [address] Hamilton Barraza M.D. Director [facility] Permit #[id number] RUN DATE: 06/21/13 [facility] LAB LIVE PAGE 2 RUN TIME: 3524 [facility] [address] [place], [place] [address] Specimen Inquiry Patient: RICHARD THOMPSON [id number] (Continued) Specimen: [id number] Collected: 06/17/13 Received: 06/17/13 (Continued) Procedure Result Verified Site GC (N. gonorrhoeae) RNA Final (continued) 06/21/13- 151 in conjunction with other laboratory and clinical [...] performed at Main Lab DEPARTMENT OF PATHOLOGY, [address] [place], [place] [address] Hamilton Barraza M.D. Director [facility] Permit #[id number] 31 Verbal to [id number] by [id number] at 0844 on 06/07/13. Results read back accurately. 32 This test detects intact HCG only and is indicated for the early detection of . 33 Because ethnic data is not always readily [...] 15-29 5 Kidney failure <15 (or dialysis) 34 RUN DATE: 04/11/13 [facility] LAB LIVE PAGE 1 RUN TIME: [address] [place] [address] Specimen Inquiry Name: RICH[place] THOMPS[place] : [address]: Becca Bailey NP Acct: [id number] Unit: [id number] AGE: 42 Location: [facility] Re04/08/13 SEX: F Status: REG REF SPEC: [id number] KENJI: 04/08/13-1047 [facility] DR: Becca Bailey NP REQ: [id number] RECD: 04/08/13 STATUS: SOUT _ ORDERED: LEVEL IV FINAL DIAGNOSIS Skin, right forearm, punch biopsy: A. Verrucous actinic keratosis. B. Margins appear clear in the plane of section. CLINICAL HISTORY No history given. GROSS DESCRIPTION The specimen is received in formalin labeled [facility], Undesignated and consists of a punch [...] Signed (signature on file) Hamilton Barraza MD 7525 END OF REPORT * ML=Testing performed at Main Lab DEPARTMENT OF PATHOLOGY, [facility] [place], [place] [address] Hamilton Barraza M.D. Director [facility] Permit #[id number] 35 RUN DATE: 04/03/13 [facility] LAB LIVE PAGE 1 RUN TIME: 1103 [facility] [address] [place], [place] [address] Specimen Inquiry Name: RICHARD THOMPSON : [address]: Becca Bailey NP Acct: [id number] Unit: [id number] AGE: 42 Location: [facility] Re04/01/13 SEX: F Status: REG REF SPEC: [id number] KENJI: 04/01/[address]: Becca Bailey NP REQ: [id number] RECD: 04/01/13 STATUS: COMP _ SOURCE: BREAST,LEF SPDESC: ORDERED: Culture Stain COMMENTS: LEFT BREAST/NIPPLE QUERIES: Medent Number [id number] Specimen Description WOUND LEFT BREAST/NIPPLE Procedure Result Verified Site Wound/Misc Gram Stain Final 04/01/13- 1403 ML 3+ Nucleated Cells No Organisms Seen Wound/Misc Culture Final 04/03/13- 1102 ML Organism 1 NORMAL RUPAL Quantity 1+ END OF REPORT * ML=Testing performed at Main Lab DEPARTMENT OF PATHOLOGY, [address] [place] [address] Hamilton Barraza M.D. Director [facility] Permit #[id number] 36 Because ethnic data is not always readily [...] 15-29 5 Kidney failure <15 (or dialysis) 37 This test detects intact HCG only and is indicated for the early detection of . 38 Please note: The following may produce a false positive D Dimer test: - Rheumatoid factor greater than 60 IU/ml - Plasma hemoglobin greater than 0.05 gm/dl - Bilirubin greater than 50 mg/dl - Lipids greater than 1000 mg/dl - FDP greater than 20 ug/ml 39 Reference Range and Interpretation: TnI (ng/mL) Interpretation Less Than 0.06 ng/mL Not supportive of diagnosis of [place] 0.06 - 0.50 ng/mL Indeterminate: suggest serial studies if clinically indicated. Greater than 0.5 ng/mL Consistent with diagnosis of [place] 40 Because ethnic data is not always readily [...] 15-29 5 Kidney failure <15 (or dialysis) 41 RUN DATE: 11/13/12 [facility] LAB LIVE PAGE 1 RUN TIME: [address] [place] [address] Specimen Inquiry Name: MARYANRICHARD : [address]: Torrey Feliz MD Acct: [id number] Unit: [id number] AGE: 42 Location: ED Re11/13/12 SEX: F Status: REG ER SPEC: [id number] KENJI: 11/13/12 [facility] DR: Torrey Feliz MD REQ: [id number] RECD: 11/13/12 STATUS: RES ALINA DR: Becca Bailey CLEANING SUPERVISOR _ SOURCE: STOOL SPDESC: ORDERED: Fecal Lactoferr Procedure Result Verified Site Stool Specimen Description Final 11/13/12- 2214 ML Stool Color Brown Stool Form Nonformed Stool Consistency Watery Fecal Lactoferrin (Stool WBC) PENDING END OF REPORT * ML=Testing performed at Main Lab DEPARTMENT OF PATHOLOGY, [address] [place] [address] Hamilton Barraza M.D. Director [facility] Permit #[id number] 42 Because ethnic data is not always readily [...] 15-29 5 Kidney failure <15 (or dialysis) 43 RUN DATE: 11/13/12 [facility] LAB LIVE PAGE 1 RUN TIME: [address] [place] [address] Specimen Inquiry Name: MARYANRICHARD Mart : [address]: Torrey Feliz MD Acct: [id number] Unit: [id number] AGE: 42 Location: ED Re11/13/12 SEX: F Status: REG ER SPEC: [id number] KENJI: 11/13/12-[address]: Torrey Feliz MD REQ: [id number] RECD: 11/13/12 STATUS: RES ALINA DOWNING: Becca Bailey CLEANING SUPERVISOR _ SOURCE: STOOL SPDESC: ORDERED: Hemoccult, Stool [...] performed at Main Lab DEPARTMENT OF PATHOLOGY, [address] [place] [address] Hamilton Barraza M.D. Director [facility] Permit #[id number] 44 Because ethnic data is not always [...] 5 Kidney failure <15 (or dialysis) 45 The CA 125 assay is not recommended as a cancer screening test, but rather as an aid in monitoring response to therapy for patients with epithelial ovarian cancer. Serial testing for patients CA 125 assay values should be used in conjunction with other methods used for screening ovarian cancer. Assayed by Chemiluminescence Microparticle Immunoassay on the [employer]. The values obtained with different assay methods or kits cannot be used interchangeably. 46 Results with Index Values of <18.00 are negative. For research use only Test Performed by: [place] [address] Motel Operator: Chapin Regalado III, M.D. 47 Test Performed by: [place] [address] Motel Operator: Zara Altamirano, Ph.D. 48 Results with Index Values of <36.00 are negative. For research use only Test Performed by: [place] [address] Motel Operator: Chapin Regalado III, M.D. 49 Because ethnic data is not always readily [...] 15-29 5 Kidney failure <15 (or dialysis) 50 If is still suspected, please repeat test after 48 to 72 hours. This test detects intact HCG only and is indicated for the early detection of . 51 Because ethnic data is not always readily [...] 15-29 5 Kidney failure <15 (or dialysis) 52 Because ethnic data is not always [...] 5 Kidney failure <15 (or dialysis) 53 Reference Range and Interpretation: TnI (ng/ml) Interpretation Less Than 0.06 ng/mL Not supportive of diagnosis of [place] 0.06 - 0.50 ng/ml Indeterminate: suggest serial studies if clinically indicated. Greater than 0.5 ng/mL Consistent with diagnosis of [place] 54 Effective 04/28/12, bilirubin confirmation by ictotest is discontinued. False-positive results for bilirubin may occur due to color interference from large amounts of blood in the urine, very concentrated urine, or drugs that discolor urine such as phenazopyridine(Pyridium). 55 RUN DATE: 05/13/12 [facility] LAB LIVE PAGE 1 RUN TIME: [address] [place] [address] Specimen Inquiry Name: RICHARD THOMPS[place] : [address]: Reji Workman MD Acct: [id number] Unit: [id number] AGE: 41 Location: ED Re05/08/12 SEX: F Status: DEP ER SPEC: [id number] KENJI: 05/08/12-2099 [facility] DR: Ce Christensen MD REQ: [id number] RECD: 05/08/12 STATUS: MARRY FULLER DR: Leo GAN,Becca Delarosa _ SOURCE: BLOOD,VENO SPDESC: ORDERED: Blood Cult Procedure Result Verified Site Aerobic Culture Bottle Final 05/13/12- 2106 ML No Growth Day 5 Anaerobic Culture Bottle Final 05/13/12- 2106 ML No Growth Day 5 END OF REPORT * ML=Testing performed at Main Lab DEPARTMENT OF PATHOLOGY, [address] [place] [address] Hamilton Barraza M.D. Director [facility] Permit #[id number] 56 Interpretation %CK-MB; < 5% Not supportive of diagnosis of [place] 5 - <10% Indeterminate; suggest serial studies 10% or > Consistent with diagnosis of [place] 57 Interpretation %CK-MB; < 5% Not supportive of diagnosis of [place] 5 - <10% Indeterminate; suggest serial studies 10% or > Consistent with diagnosis of [place] 58 Reference Range and Interpretation: TnI (ng/ml) Interpretation Less Than 0.06 ng/mL Not supportive of diagnosis of [place] 0.06 - 0.50 ng/ml Indeterminate: suggest serial studies if clinically indicated. Greater than 0.5 ng/mL Consistent with diagnosis of [place] 59 Because ethnic data is not always [...] 5 Kidney failure <15 (or dialysis) 60 RUN DATE: 05/13/12 [facility] LAB LIVE PAGE 1 RUN TIME: [address] [place] [id number] Specimen Inquiry Name: RICHARD THOMPSON : [address]: Reji Workman MD Acct: [id number] Unit: [id number] AGE: 41 Location: ED Re05/08/12 SEX: F Status: DEP ER SPEC: [id number] KENJI: 05/08/[address]: Ce Christensen MD REQ: [id number] RECD: 05/08/12 STATUS: MARRY FULLER DR: Leo GAN,Becca Delarosa _ SOURCE: BLOOD,VENO SPDESC: ORDERED: Blood Cult Procedure Result Verified Site Aerobic Culture Bottle Final 05/13/12- 2106 ML No Growth Day 5 Anaerobic Culture Bottle Final 05/13/12- 2106 ML No Growth Day 5 END OF REPORT * ML=Testing performed at Main Lab DEPARTMENT OF PATHOLOGY, [address] [place] [address] Hamilton Barraza M.D. Director [place] Permit #[id number] 61 If is still suspected, please repeat test after 48 to 72 hours. This test detects intact HCG only and is indicated for the early detection of . 62 A metabolite of Naproxen, O-desmethylnaproxen, has been shown to interfere with the Jenanne-Benji method for measuring total bilirubin. Samples from patients who have taken Naproxen have shown spurious elevation in total bilirubin levels. 63 Because ethnic data is not always readily [...] 15-29 5 Kidney failure <15 (or dialysis) 64 Comment: b 65 -- REFERENCE VALUE -- 25-HYDROXY D TOTAL (D2+D3) Optimum levels in the normal population are 25-80 Test Performed by: [place] [address] Motel Operator: Chapin Regalado III, M.D. R 66 -- REFERENCE VALUE -- Not present Test Performed by: [place] [address] Motel Operator: Chapin Regalado III, M.D. R 67 It is recognized that currently available assays [...] 95% confidence interval of 99.78 to 99.96%. 68 >59 mL/min/1.73m2 69 >59 mL/min/1.73m2 Note: Persistent reduction for 3 months or more in an eGFR <60 mL/min/1.73m2 defines CKD. Patients with eGFR values >=60 mL/min/1.73m2 may also have CKD if evidence of persistent proteinuria is present. Additional information may be found at [email or web address]/professionals/kdoqi. 70 Vitamin D deficiency has been defined by the [place] of [employer] and an Endocrine Society practice guideline as a level of serum 25-OH vitamin D less than 20 ng/mL (1,2). The Endocrine Society went on to further define vitamin D insufficiency as a level between 21 and 29 ng/mL (2). 1. IOM ([employer] of [employer]). 2010. Dietary reference intakes for calcium and D. [place]: The National Academies Press. 2. Kaelyn MF, Chloe GARCIA, Anibal GRACIA, et al. Evaluation, treatment, and prevention of vitamin D deficiency: an Endocrine Society clinical practice guideline. JCEM. 2010; 96(5):1911-30. Procedures Date CPT Code Description Status Comment 11/05/2016 Colonoscopy Completed EGD biopsies neg for h.pylori. Colon biopsies showed healed colitis. Repeat 2026. 09/21/2014 60165 Therapeutic,Prophylactic,Or Completed Diagnostic Inj,SC/Im Specify Drug 08/17/2014 40620 Therapeutic,Prophylactic,Or Completed Diagnostic Inj,SC/Im Specify Drug 07/14/2014 56209 Therapeutic,Prophylactic,Or Completed Diagnostic Inj,SC/Im Specify Drug 04/08/2013 84917 Excision Of Lesion Completed (Trunk,Arm,Leg) .6 To 1 CM. 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 E03.9 Z12.31 F41.9 Office Visit 09/04/2017 10:15a Main Office Becca Bailey [employer]SEM[employer] MACHINE OFFBEARER-C 20289 J01.90 M54.13 K31.84 Office Visit 08/19/2017 9:30a [place] [address] J01.90 R04.0 Office Visit 07/16/2017 2:00p Main Office Becca Bailey [employer]SEM[employer] MACHINE OFFBEARER-C 63093 L66.2 Office Visit 06/02/2017 3:30p Main Office Angel Mora III ASSEMBLY MACHINE OFFBEARER-C 82980 M25.512 Office Visit 05/21/2017 3:45p Main Office Shawyasir Bailey, ASSEMBLY MACHINE OFFBEARER-C 46527 L66.2 G47.00 Office Visit 04/10/2017 11:30a Main Office Satyawyasir Bailey, ASSEMBLY MACHINE OFFBEARER-C 58508 R49.0 Office Visit 02/27/2017 2:45p Main Office Shawyasir Bailey, ASSEMBLY MACHINE OFFBEARER-C 48174 J06.9 Z23 Office Visit 11/06/2016 3:15p Main Office Shawnti Liv. Leo, ASSEMBLY MACHINE OFFBEARER-C 96484 L03.90 Office Visit 09/05/2016 4:15p Main Office Shawntgabriela Bailey, ASSEMBLY MACHINE OFFBEARER-C 71817 K31.84 R19.7 Office Visit 06/26/2016 10:45a Main Office Becca Bailey, ASSEMBLY MACHINE OFFBEARER-C 33367 S29.012A J45.902 Office Visit 06/17/2016 4:00p Main Office Angel Lingmj BULLOCK, ASSEMBLY MACHINE OFFBEARER-C 03285 J20.9 Office Visit 06/06/2016 1:45p [place] [address] R07.81 Office Visit 05/01/2016 8:45a Main Office Becca Bailey, ASSEMBLY MACHINE OFFBEARER-C 85464 J20.9 M54.5 Office Visit 03/03/2016 9:30[place] [address] J44.1 Office Visit 02/26/2016 3:45p Main Office Becca Bailey, ASSEMBLY MACHINE OFFBEARER-C 22419 R09.1 Office Visit 11/29/2015 3:15p Main Office Becca Bailey, ASSEMBLY MACHINE OFFBEARER-C 13704 J20.9 J18.9 Office Visit 11/02/2015 10:15a Main Office Shawyasir Peck. Leo, ASSEMBLY MACHINE OFFBEARER-C 63474 R09.1 J06.9 Office Visit 10/11/2015 10:45a Main Office Satyawyasir Bailey, ASSEMBLY MACHINE OFFBEARER-C 76672 S39.011A R53.1 Z72.0 Office Visit 09/28/2015 10:00a Main Office Satyawntgabriela Bailey, ASSEMBLY MACHINE OFFBEARER-C 12471 B37.9 Office Visit 08/06/2015 8:00a Main Office Becca Bailey, ASSEMBLY MACHINE OFFBEARER-C 70157 J18.9 I01.0 Office Visit 08/02/2015 3:45p Main Office Becca Bailey, ASSEMBLY MACHINE OFFBEARER-C 20832 J18.9 J20.9 Office Visit 07/06/2015 3:30p Main Office Becca Bailey, ASSEMBLY MACHINE OFFBEARER-C 77045 J18.9 J20.9 Office Visit 06/26/2015 4:30p Main Office Becca Bailey, ASSEMBLY MACHINE OFFBEARER-C 39278 J18.9 J20.9 B37.89 Office Visit 03/23/2015 11:00a Main Office Becca aBiley, ASSEMBLY MACHINE OFFBEARER-C 32438 M54.5 J02.8 E03.9 E55.9 Office Visit 12/26/2014 2:30p Main Office Becca Bailey, ASSEMBLY MACHINE OFFBEARER-C 25483 V74.1 616.10 112.2 Office Visit 12/05/2014 10:00a Main Office Becca Bailey, ASSEMBLY MACHINE OFFBEARER-C 19315 486 466.0 Office Visit 09/21/2014 8:45a Main Office Becca Bailey, ASSEMBLY MACHINE OFFBEARER-C 85736 V70.0 616.10 477.9 V76.10 780.79 266.2 Office Visit 08/17/2014 10:15a Main Office Becca Bailey, ASSEMBLY MACHINE OFFBEARER-C 39435 311 466.0 281.1 266.2 Office Visit 07/14/2014 9:30a Main Office Becca Bailey, ASSEMBLY MACHINE OFFBEARER-C 06939 714.0 356.8 780.79 266.2 Office Visit 04/06/2014 11:45a Main Office Becca Bailey, ASSEMBLY MACHINE OFFBEARER-C 28748 053.9 Office Visit 03/13/2014 3:45p Main Office Becca Bailey, ASSEMBLY MACHINE OFFBEARER-C 39715 486 V04.81 Office Visit 01/17/2014 11:00a Main Office Becca Bailey, ASSEMBLY MACHINE OFFBEARER-C 04541 780.52 300.00 787.91 Office Visit 12/08/2013 3:15p Main Office Shawnti R. Storm, ASSEMBLY MACHINE OFFBEARER-C 78452 780.52 305.1 300.00 053.29 V05.8 V05.3 Office Visit 08/17/2013 10:15a Main Office Rose Rosenthalkelvey, ASSEMBLY MACHINE OFFBEARER-C 26321 486 Office Visit 07/28/2013 10:00a Main Office Becca Bailey, ASSEMBLY MACHINE OFFBEARER-C 18316 486 Office Visit 06/17/2013 3:30p Main Office Becca Bailey, ASSEMBLY MACHINE OFFBEARER-C 66319 486 308.9 714.0 788.1 Office Visit 05/02/2013 11:45a Main Office Becca Bailey, ASSEMBLY MACHINE OFFBEARER-C 53592 724.5 308.9 Office Visit 04/15/2013 10:45a Main Office Becca Bailey, ASSEMBLY MACHINE OFFBEARER-C 07745 724.5 308.9 238.2 Office Visit 04/01/2013 11:00a Main Office Becca Bailey, ASSEMBLY MACHINE OFFBEARER-C 57011 611.9 780.51 782.9 V04.81 Office Visit 03/11/2013 3:00p Main Office Becca Bailey, ASSEMBLY MACHINE OFFBEARER-C 69782 486 Office Visit 03/08/2013 10:00a Main Office Becca Bailey, ASSEMBLY MACHINE OFFBEARER-C 29532 486 942.20 Office Visit 02/04/2013 10:15a Main Office Becca Bailey, ASSEMBLY MACHINE OFFBEARER-C 59269 724.5 719.41 535.40 Office Visit 01/19/2013 9:30a Main Office Brianna Saravia M.D. 75292 714.0 719.41 Office Visit 01/07/2013 11:00a Main Office Becca Bailey, ASSEMBLY MACHINE OFFBEARER-C 33564 714.0 535.40 616.10 V06.1 Office Visit 12/17/2012 4:15p Main Office Rose Cano, ASSEMBLY MACHINE OFFBEARER-C 11440 786.50 Office Visit 11/26/2012 10:45a Main Office Becca Bailey, ASSEMBLY MACHINE OFFBEARER-C 41376 789.09 Office Visit 11/12/2012 11:15a Main Office Becca Bailey, ASSEMBLY MACHINE OFFBEARER-C 33005 789.09 Office Visit 11/02/2012 3:45p Main Office Becca Bailey, ASSEMBLY MACHINE OFFBEARER-C 59132 789.09 682.8 Office Visit 09/15/2012 11:45a Main Office Rose Cano, ASSEMBLY MACHINE OFFBEARER-C 04605 784.0 Office Visit 08/19/2012 3:15p Main Office Becca Bailey, ASSEMBLY MACHINE OFFBEARER-C 24921 308.3 Office Visit 08/10/2012 10:00a Main Office Becca Bailey, ASSEMBLY MACHINE OFFBEARER-C 59085 724.5 Office Visit 06/11/2012 3:15p Main Office Becca Bailey, ASSEMBLY MACHINE OFFBEARER-C 10513 466.0 Office Visit 05/27/2012 4:45p Main Office Becca Bailey ASSEMBLY MACHINE OFFBEARER-C 86459 372.03 719.47 714.0 Office Visit 04/30/2012 2:30p Main Office Becca Bailey ASSEMBLY MACHINE OFFBEARER-C 14961 727.43 726.33 724.5 Office Visit 04/13/2012 9:15a Main Office Becca Bailey ASSEMBLY MACHINE OFFBEARER-C 94907 850.9 Office Visit 03/29/2012 2:30p Main Office Becca Bailey, ASSEMBLY MACHINE OFFBEARER-C 33322 536.3 724.5 616.10 V04.81 Office Visit 03/01/2012 11:45a Main Office Becca Bailey ASSEMBLY MACHINE OFFBEARER-C 40749 493.00 794.8 268.9 Office Visit 01/30/2012 2:15p Main Office Becca Bailey ASSEMBLY MACHINE OFFBEARER-C 91857 555.9 999.49 733.99 780.51 493.00 691.8 Plan of Care Future Appointment(s):01/08/2018 2:15 pm - AJ Thurman-C at Main Kxvrze5012/01/2017 - AJ Thurman-CL02.219 Cutaneous abscess of trunk, unspecifiedNew Medication:Bactrim DS 800-160 mgComments:continue warm compresses , has residual cellulitis, no fluctuance. will treat with BactrimFollow up: schedule annual exam in Hypothyroidism, unspecifiedComments:check TSH vhuhgB12.31 Encntr screen mammogram for malignant neoplasm of breastNew Xrays:Mammography, Screening; AgnmpqhlaG46.9 Anxiety disorder, unspecifiedComments:valium refilled
[2017-12-30] MEDS ORDERED: Diazepam SYRINGE* 5 MG/ML 2 ML SYRINGE (10 MG total) IV ONE (15:37)
[2017-12-30] MEDS ORDERED: Morphine INJ** 4 MG/ML 1 ML CARPUJECT IV ONE (15:39)
--- NOTE | 2017-12-30 15:43 | ED ---
Neck Pain - HPI Summary HPI Summary: 47-year-old female presents with acute on chronic neck pain for the past couple months. She states 2 months ago she had an MRI which showed that she had disc herniation. She states she was supposed to follow up with neurosurgery but she did not pay a bill so she was unable to do so. States that this week she should be able to be the bill and will be able to follow up with neurosurgery. She states that she's been gradually having increasing pain into her right arm and weakness. She denies any fevers. She states she is not able to grasp anything with right hand. She states she is right-handed. She states she's been falling a lot due to the pain. She is currently being followed by pain management. She denies any headache. No neck stiffness. No chest pain or shortness of breath. She currently takes Valium Soma and oxycodone for pain. She states her primary did not order a new MRI after all the falls but dr west would like one. She states dr he sent her here due to her increased pain. - History of Current Complaint Chief Complaint: EDNeckComplaint Stated Complaint: FALL/NECK PAIN Time Seen by Provider: 12/30/17 15:18 Pain Intensity: 10 - Allergies/Home Medications Allergies/Adverse Reactions: Allergies Allergy/AdvReac Type Severity Reaction Status Date / Time acetaminophen [From Tylenol] Allergy Unknown Verified 12/30/17 13:53 Reaction Details adalimumab Allergy Unknown Verified 12/30/17 16:00 Reaction Details adalimumab-adbm Allergy Unknown Verified 12/30/17 16:00 Reaction Details adalimumab-atto Allergy Unknown Verified 12/30/17 16:00 Reaction Details albuterol Allergy See Comment Verified 12/30/17 15:58 aspirin Allergy Unknown Verified 12/30/17 13:53 Reaction Details bee pollen Allergy Anaphylatic Verified 12/30/17 16:00 Shock bee venom protein (honey bee) Allergy Anaphylatic Verified 12/30/17 16:00 Shock benzyl alcohol Allergy Unknown Verified 12/30/17 16:02 Reaction Details digoxin Allergy Unknown Verified 12/30/17 16:00 Reaction Details etanercept Allergy Unknown Verified 12/30/17 16:01 Reaction Details etanercept-szzs Allergy Unknown Verified 12/30/17 16:01 Reaction Details guava Allergy Unknown Verified 12/30/17 15:58 Reaction Details hydrocortisone Allergy Facial Verified 12/30/17 16:02 [From Hydrocortone] Redness/Flushing ibuprofen Allergy Unknown Verified 12/30/17 16:01 Reaction Details melissa Allergy Unknown Verified 12/30/17 15:58 Reaction Details naproxen Allergy Unknown Verified 12/30/17 16:00 Reaction Details papaya Allergy Unknown Verified 12/30/17 15:58 Reaction Details Penicillins Allergy Unknown Verified 12/30/17 15:58 Reaction Details tromethamine Allergy Unknown Verified 12/30/17 15:58 Reaction Details BEES Allergy Severe Anaphylatic Uncoded 12/30/17 13:53 Shock PMH/Surg Hx/FS Hx/Imm Hx Endocrine/Hematology History: Reports: Hx Thyroid Disease Denies: Hx Anticoagulant Therapy, Hx Diabetes, Hx Anemia, Hx Unexplained Bleeding Cardiovascular History: Reports: Hx Valvular Heart Disease - mitral valve prolapse, Other Cardiovascular Problems/Disorders - VALVE PROLAPSE Denies: Hx Aneurysm, Hx Angina, Hx Angioplasty, Hx Auto Implanted Cardiovert Defib, Hx Cardiac Arrest, Hx Cardiomegaly, Hx Congenital Heart Disease, Hx Congestive Heart Failure, Hx Coronary Artery Disease, Hx Deep Vein Thrombosis, Hx Embolism, Hx Hypercholesterolemia, Hx Hypotension, Hx Hypertension, Hx Pacemaker/ICD, Hx Peripheral Vascular Disease, Hx Rheumatic Fever, Hx Syncope Respiratory History: Reports: Hx Asthma, Hx Chronic Obstructive Pulmonary Disease (COPD), Hx Pneumonia, Other Respiratory Problems/Disorders - dx pneumonia rt lung 06/14 Denies: Hx Chronic Bronchitis, Hx Cystic Fibrosis, Hx Lung Cancer, Hx Pleural Effusion, Hx Pulmonary Edema, Hx Pulmonary Embolism, Hx Seasonal Allergies, Hx Sleep Apnea GI History: Reports: Hx Crohn's Disease, Hx Irritable Bowel, Other GI Disorders - gastro paresis/ Crohn's History: Denies: Hx Acute Renal Failure, Hx Benign Prostatic Hyperplasia, Hx Chronic Renal Failure, Hx Dialysis, Hx Kidney Infection, Hx Kidney Stones, Hx Renal Disease, Other Problems/Disorders Musculoskeletal History: Reports: Hx Arthritis, Hx Rheumatoid Arthritis, Hx Fibromyalgia Denies: Hx Back Problems, Hx Bursitis, Hx Congenital Bone Abnormalities, Hx Osteoporosis Sensory History: Reports: Hx Contacts or Glasses Denies: Hx Cataracts, Hx Eye Injury, Hx Eye Prosthesis, Hx Glaucoma, Hx Legally Blind, Hx Macular Degeneration, Hx Vision Problem, Hx Deafness, Hx Hearing Aid, Hx Hearing Problem, Other Sensory Impairments Opthamlomology History: Reports: Hx Contacts or Glasses Denies: Hx Cataracts, Hx Eye Injury, Hx Eye Prosthesis, Hx Glaucoma, Hx Legally Blind, Hx Macular Degeneration, Hx Vision Problem, Other Sensory Impairments Neurological History: Reports: Hx Headaches, Hx Migraine Denies: Hx Dementia, Hx Developmental Delay, Hx Nerve Disease, Hx Seizures, Hx Spinal Cord Injury, Hx Transient Ischemic Attacks (TIA) Psychiatric History: Reports: Hx Anxiety, Hx Post Traumatic Stress Disorder Denies: Hx Attention Deficit Hyperactivity Disorder, Hx Eating Disorder, Hx Depression, Hx Panic Disorder, Hx Inpatient Treatment, Hx Community Mental Health Tx, Hx Schizophrenia, Hx Bipolar Disorder, Hx Suicide Attempt, Hx of Violent Episodes Against Others, Hx Substance Abuse, Other Psychiatric Issues/ Disorders - Cancer History Cancer Type, 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 2X BILATERAL KNEES-[place]. 2 C SECTIONS 1988/1990 [place]. BOWEL RESECTION 1996 [place]. 6 ABDOMINAL SURGIES BETWEEN [id number] OUT SCAR TISSUE. 3 ABDOMINAL SURGERIES 2000. BILATERAL BREAST TUMORS REMOVED. GALLBLADDER 1994 Hx Anesthesia Reactions: No - Immunization History Date of Tetanus Vaccine: Unk Date of Influenza Vaccine: Fall 2012 Infectious Disease History: No Infectious Disease History: Reports: Hx Shingles Denies: Hx Clostridium Difficile, Hx Hepatitis, Hx Human Immunodeficiency Virus (HIV), Hx of Known/Suspected MRSA, Hx Tuberculosis, Hx Known/Suspected VRE , Hx Known/Suspected VRSA, History Other Infectious Disease, Traveled Outside the in Last 30 Days - Family History Known Family History: Positive: Other - Breast cancer - Social History Alcohol Use: None Substance Use Type: Reports: Prescribed Hx Tobacco Use: Yes Smoking Status (MU): Light Every Day Tobacco Smoker Type: Cigarettes Have You Smoked in the Last Year: Yes Review of Systems Negative: Fever Negative: Chest Pain Negative: Shortness Of Breath Positive: Myalgia - neck pain Positive: Paresthesia - right arm All Other Systems Reviewed And Are Negative: Yes Physical Exam Triage Information Reviewed: Yes Vital Signs On Initial Exam: Initial Vitals Temp Pulse Resp BP Pulse Ox 99.1 F 85 18 177/86 98 12/30/17 13:45 12/30/17 13:45 12/30/17 13:45 12/30/17 13:45 12/30/17 13:45 Vital Signs Reviewed: Yes Appearance: Positive: Well-Appearing Skin: Positive: Warm, Dry Head/Face: Positive: Normal Head/Face Inspection Eyes: Positive: Normal, Conjunctiva Clear ENT: Positive: Pharynx normal Neck: Positive: Other: - tenderness right side of neck Respiratory/Lung Sounds: Positive: Clear to Auscultation, Breath Sounds Present Cardiovascular: Positive: Normal, RRR Musculoskeletal: Positive: Limited @ - right shoulder, arm, and wrist, neck, Other - good pulses, decrease sensation right arm Neurological: Positive: Reflexes Intact - biceps Psychiatric: Positive: Normal Diagnostics - Vital Signs Vital Signs Temp Pulse Resp BP Pulse Ox 12/30/17 13:45 99.1 F 85 18 177/86 98 - Laboratory Lab Statement: Any lab studies that have been ordered have been reviewed, and results considered in the medical decision making process. - Radiology shoulder Xray Interpretation: No Acute Changes Radiology Interpretation Completed By: Radiologist - CT neck CT Interpretation: Positive (See Comments) - 1. AT THE VERY TIP OF THE DENS THERE IS A 3 MM FOCUS OF BONE THAT COULD BE A NONDISPLACED TIP OF THE DENS FRACTURE IN A PATIENT REPORTING A SERIES OF FALLS. THE DENS IS OTHERWISE INTACT , THE ATLANTODENTAL INTERVAL IS PRESERVED AND THERE ARE NO OTHER DEFINITE FRACTURES OR DISLOCATIONS. 2. DEGENERATIVE CHANGES INCLUDE LOSS OF INTERVERTEBRAL DISC HEIGHT MOST SEVERELY AFFECTING C6/C7. SUPERIOR CHARACTERIZATION OF THE INTERVERTEBRAL DISCS WAS MADE WITH THE OCTOBER 02, 2017 MRI OF THE CERVICAL SPINE, BUT THERE DOES APPEAR TO BE A PERSISTENT DEGREE OF CENTRAL CANAL OR NEURAL FORAMINAL STENOSIS AT C6/C7. CT Interpretation Completed By: Radiologist Re-Evaluation - Re-Evaluation First Eval Re-Evaluation Time: 17:14 Change: Improved Comment: pain slightly better at 9 out of 10 Neck Course/Dx - Course Course Of Treatment: 47-year-old female presents with acute on chronic neck pain for the past couple months. She states 2 months ago she had an MRI which showed that she had disc herniation. She states she was supposed to follow up with neurosurgery but she did not pay a bill so she was unable to do so. States that this week she should be able to be the bill and will be able to follow up with neurosurgery. She states that she's been gradually having increasing pain into her right arm and weakness. She denies any fevers. She states she is not able to grasp anything with right hand. She states she is right-handed. She states she's been falling a lot due to the pain. She is currently being followed by pain management. She denies any headache. No neck stiffness. No chest pain or shortness of breath. She currently takes Valium Soma and oxycodone for pain. She states her primary did not order a new MRI after all the falls but dr west would like one. She states dr he sent her here due to her increased pain. on exam tenderness right side of neck, limited ROM right arm due to pain, decreased sensation great arm, biceps reflex intact but is decreased, sensation grossly diminished, weak roll edge stitcher hand strength. discussed with get CT to see if any new fx and shoulder xray. will get morphine and valium to help patient get into CT machine as states is not able to lay down. CT shows possible dens fx, shoulder xray normal. patient signed out to roseann pending neurosurgery consult - Diagnoses Differential Dx/HQI/PQRI: Positive: Cervical Fracture, Other - herniated disk Provider Diagnoses: Neck pain Discharge - Sign-Out/Discharge Documenting (check all that apply): Sign-Out Patient Signing out patient TO: Roseann Wakefield - Discharge Plan Referrals: Xu Campo MD [Medical Doctor] - Francis Cote MD [Medical Doctor] -
[2017-12-30] MEDS ORDERED: Morphine INJ* 2 MG/ML 1 ML SYRINGE (TWO MG - NEW SYRINGE VERSION) ONE (15:53)
[2017-12-30] MEDS ORDERED: Diazepam INJ (NF) 5 MG/ML 10 ML VIAL (50 MG TOTAL) IV ONE (16:03)
[2017-12-30] MEDS ORDERED: Morphine INJ* 2 MG/ML 1 ML SYRINGE (TWO MG - NEW SYRINGE VERSION) IV ONE (16:03)
--- NOTE | 2017-12-30 16:39 | RAD ---
INDICATION: Right shoulder pain COMPARISON: None. TECHNIQUE: 4 views of the right shoulder were obtained. FINDINGS: The adequately corticated bones are in normal alignment. Joint spaces appear maintained. No fracture, dislocation or focal bony abnormality is seen. IMPRESSION: Normal radiograph of the right shoulder. If the patient's symptoms persist, follow-up imaging is recommended.
--- NOTE | 2017-12-30 17:28 | RAD ---
INDICATION: Neck pain with a reported history of falls. COMPARISON: MRI of the cervical spine dated October 02, 2017 that describes degenerative disc disease most severe at C6/C7 TECHNIQUE: Axial source images were acquired with coronal and sagittal reformatting. FINDINGS: There is straightening of the normal cervical lordosis. The facet joints and vertebral bodies are otherwise appropriately aligned. There is sclerotic change involving the tip of the dens. At the superiormost portion of the dens there is a 3 mm well-circumscribed focus of bone. It is uncertain if this was seen on the October 02, 2017 MRI of the cervical spine. Degenerative changes of include loss of intervertebral disc height at multiple levels most severely at C6/C7. Though it is less well characterized on CT than MRI, there appears to be broad-based disc protrusion at C6/C7 causing central canal or neural foraminal stenosis. IMPRESSION: 1. AT THE VERY TIP OF THE DENS THERE IS A 3 MM FOCUS OF BONE THAT COULD BE A NONDISPLACED TIP OF THE DENS FRACTURE IN A PATIENT REPORTING A SERIES OF FALLS. THE DENS IS OTHERWISE INTACT, THE ATLANTODENTAL INTERVAL IS PRESERVED AND THERE ARE NO OTHER DEFINITE FRACTURES OR DISLOCATIONS. 2. DEGENERATIVE CHANGES INCLUDE LOSS OF INTERVERTEBRAL DISC HEIGHT MOST SEVERELY AFFECTING C6/C7. SUPERIOR CHARACTERIZATION OF THE INTERVERTEBRAL DISCS WAS MADE WITH THE OCTOBER 02, 2017 MRI OF THE CERVICAL SPINE, BUT THERE DOES APPEAR TO BE A PERSISTENT DEGREE OF CENTRAL CANAL OR NEURAL FORAMINAL STENOSIS AT C6/C7.
--- NOTE | 2017-12-30 18:13 | ED ---
Progress - Progress Note Progress Note: Pt presents w/ acute on chronic neck pain. Reports 8 falls in the past 2 months which she attributes to spasms in her Rt arm - pain is so severe at times, she lowers herself down to the ground to try to compose herself. She does report an episode where she fell hard onto her butt and this alicia her spine with the landing, also causing her to strike her head against the wall in a whiplash like fashion. She admits her neck pain and radicular sx into her Rt shoulder and arm have been worse since. She has difficulty sleeping d/t pain and has been trying benadryl w/o relief. SHe stopped her soma a few weeks ago as she reports this was not helping. She continues to take her DMARDS for her rheumatoid arthritis and gabapentin for her fibromyalgia. She had an MRI of her neck in September 2017 and was told to f/u w/ neurosurgery. D/t a missed payment, she has not been able to schedule an appointment but reports she plans to pay this in 2 days so she may follow-through with appointment. She has been following with Dr. Torres for pain management and takes oxycodone 10/325mg 5 x day. She has also had steroid injections in her neck area - last injection helped her pain for about an hour and a half. She is here as her spasms and pain are intolerable and Dr. Torres recommended she come to the ED for pain control. Her CT ordered by Doris Barros PA-C, revealed a possible non-displaced dens fx. Discussed w/ Dr. Cote who reports he's not concerned about this potential finding and does not feel the patient needs a collar nor emergent evaluation. He advised f/u w/ neurosurgery as previously scheduled. Pt reports her spasms have been less intense and less frequent since receiving valium and morphine IV. She has no allergies to steroids and so these will be provided as well. Since she denies difficulty breathing or swallowing, has sensation with gross touch of Rt UE and is able to move her joints although painful, she will be d/c'd home to return to her pain medication, including return to soma, and I'll add a steroid to reduce inflammation. Her baseline hypersensitivty to touch in Rt UE is unchanged as is weakness w/ budget examiner (motor intact). She understands her pain and sx will not most likely be completely resolved today but we have already reduced her pain and anticipate the steroid will continue to help. She understands neursurgery needs to to intervene for more definitive care of her pathology including "degenerative changes include loss of intervertebral disc height most severely affecting C6/C7. Superior characterization of the intravertebral discs was made with October 02, 2017 MRI of the cervical spine but there does appear to be a persistent degree of central canal or neural foraminal stenosis at C6-C7." Shoulder XR is also reported to be w/o acute findings. Pt d/c'd in improved and stable condition. She is happy with her care here today and agrees to f/u as directed. Re-Evaluation - Re-Evaluation First Eval Re-Evaluation Time: 17:14 Change: Improved Comment: pain slightly better at 9 out of 10 Second Eval Change: Improved - Pt reports spasms are less frequent and intensity of pain is lightening some. Course/Dx - Course Course Of Treatment: 47-year-old female presents with acute on chronic neck pain for the past couple months. She states 2 months ago she had an MRI which showed that she had disc herniation. She states she was supposed to follow up with neurosurgery but she did not pay a bill so she was unable to do so. States that this week she should be able to be the bill and will be able to follow up with neurosurgery. She states that she's been gradually having increasing pain into her right arm and weakness. She denies any fevers. She states she is not able to grasp anything with right hand. She states she is right-handed. She states she's been falling a lot due to the pain. She is currently being followed by pain management. She denies any headache. No neck stiffness. No chest pain or shortness of breath. She currently takes Valium Soma and oxycodone for pain. She states her primary did not order a new MRI after all the falls but dr west would like one. She states dr torres sent her here due to her increased pain. on exam tenderness right side of neck, limited ROM right arm due to pain, decreased sensation great arm, biceps reflex intact but is decreased, sensation grossly diminished, weak budget examiner strength. discussed with get CT to see if any new fx and shoulder xray. will get morphine and valium to help patient get into CT machine as states is not able to lay down. CT shows possible dens fx, shoulder xray normal. patient signed out to tiffany pending neurosurgery consult - Diagnoses Provider Diagnoses: Neck pain, Cervical radiculopathy Discharge - Sign-Out/Discharge Documenting (check all that apply): Patient Departure - Discharge Plan Condition: Stable Disposition: HOME Prescriptions: predniSONE TAB* [Deltasone 20 MG TAB*] 60 mg PO DAILY #15 tab Patient Education Materials: Cervical Radiculopathy (ED) Referrals: Xu Campo MD [Medical Doctor] - Additional Instructions: Complete steroids as directed Restart soma for spasm relief Continue oxycodone as directed for pain control as well as other medications for fibromyalgia and rheumatoid arthritis Follow-up with neurosurgery tomorrow to alert them of your visit and CT scan. You may also notify your other providers such as Dr. Torres and Dr. Crump to update your condition and medications *If you develop numbness, change in weakness, difficulty breathing or swallowing , intractable headache return to ED - Billing Disposition and Condition Condition: STABLE Disposition: Home
[2017-12-30] MEDS ORDERED: methylPREDNISolone SOD 40 MG* 1 ML VIAL IV ONE (18:15)
[2017-12-30] MEDS ORDERED: Morphine INJ* 2 MG/ML 1 ML CARPUJECT IV ONE (18:18)
[2017-12-30 19:17] VITALS: BP 162/62
== END 2017-12-30 19:16 | disposition home or self-care (01) ==
LOC: ED 13:38
DX: M54.12 Radiculopathy, cervical region (principal); G89.29 Other chronic pain; M06.9 Rheumatoid arthritis, unspecified; M79.7 Fibromyalgia; Z79.899 Other long term (current) drug therapy
CPT/HCPCS: 72125; 96374; 96375; 96376; 99283; J2270; J2920; J3360

== ENCOUNTER 2018-01-06 12:49 | Inpatient (IN) | payer BC, MEDICARE ==
--- NOTE | 2018-01-06 14:21 | ED ---
Syncope/Near Syncope - HPI Summary HPI Summary: This is Shu beasley, documenting for attending Segun Yanes MD. This patient is a 47 year old F [place] [facility] Bow[place] accompanied by her with a chief complaint of neck and right shoulder pain that has worsened from baseline after multiple falls this morning. Pain is 8/10 in severity. reports multiple falls in the the past three weeks increasing in frequency. She states falls occur because her legs give out. reports 4-5 falls this morning beginning around 2:00 this morning. Patient additionally describes one of the falls this morning as LOC; she states it was dark as she fell and did not wake up til later in the morning. PMHx includes spinal stenosis, DDD, herniated and bulging cervical discs, and a pinched nerve. 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 I, Dr. Yanes personally performed the services described in this documentation as scribed in my presence and it is both accurate and complete. - History Of Current Complaint Chief Complaint: EDWeakness Time Seen by Provider: 01/06/18 12:55 Hx Obtained From: Patient, Family/Flight Kitchen Manager Onset/Duration: Sudden Onset, Worse Since - this morning - Allergies/Home Medications Allergies/Adverse Reactions: Allergies Allergy/AdvReac Type Severity Reaction Status Date / Time acetaminophen [From Tylenol] Allergy Unknown Verified 12/30/17 13:53 Reaction Details adalimumab Allergy Anaphylatic Verified 01/06/18 13:15 Shock adalimumab-adbm Allergy Anaphylatic Verified 01/06/18 13:15 Shock adalimumab-atto Allergy Anaphylatic Verified 01/06/18 13:15 Shock albuterol Allergy See Comment Verified 12/30/17 15:58 aspirin Allergy Unknown Verified 12/30/17 13:53 Reaction Details bee pollen Allergy Anaphylatic Verified 12/30/17 16:00 Shock bee venom protein (honey bee) Allergy Anaphylatic Verified 12/30/17 16:00 Shock digoxin Allergy Unknown Verified 12/30/17 16:00 Reaction Details etanercept Allergy Anaphylatic Verified 01/06/18 13:15 Shock etanercept-szzs Allergy Unknown Verified 12/30/17 16:01 Reaction Details guava Allergy Unknown Verified 12/30/17 15:58 Reaction Details hydrocortisone Allergy Facial Verified 12/30/17 16:02 [From Hydrocortone] Redness/Flushing ibuprofen Allergy Unknown Verified 12/30/17 16:01 Reaction Details melissa Allergy Unknown Verified 12/30/17 15:58 Reaction Details naproxen Allergy Unknown Verified 12/30/17 16:00 Reaction Details papaya Allergy Anaphylatic Verified 01/06/18 13:15 Shock Penicillins Allergy Anaphylatic Verified 01/06/18 13:15 Shock BEES Allergy Severe Anaphylatic Uncoded 12/30/17 13:53 Shock PMH/Surg Hx/FS Hx/Imm Hx Endocrine/Hematology History: Reports: Hx Thyroid Disease Denies: Hx Anticoagulant Therapy, Hx Diabetes, Hx Anemia, Hx Unexplained Bleeding Cardiovascular History: Reports: Hx Valvular Heart Disease - mitral valve prolapse, Other Cardiovascular Problems/Disorders - VALVE PROLAPSE Denies: Hx Aneurysm, Hx Angina, Hx Angioplasty, Hx Auto Implanted Cardiovert Defib, Hx Cardiac Arrest, Hx Cardiomegaly, Hx Congenital Heart Disease, Hx Congestive Heart Failure, Hx Coronary Artery Disease, Hx Deep Vein Thrombosis, Hx Embolism, Hx Hypercholesterolemia, Hx Hypotension, Hx Hypertension, Hx Pacemaker/ICD, Hx Peripheral Vascular Disease, Hx Rheumatic Fever, Hx Syncope Respiratory History: Reports: Hx Asthma, Hx Chronic Obstructive Pulmonary Disease (COPD), Hx Pneumonia, Other Respiratory Problems/Disorders - dx pneumonia rt lung 06/14 Denies: Hx Chronic Bronchitis, Hx Cystic Fibrosis, Hx Lung Cancer, Hx Pleural Effusion, Hx Pulmonary Edema, Hx Pulmonary Embolism, Hx Seasonal Allergies, Hx Sleep Apnea GI History: Reports: Hx Crohn's Disease, Hx Irritable Bowel, Other GI Disorders - gastro paresis/ Crohn's History: Denies: Hx Acute Renal Failure, Hx Benign Prostatic Hyperplasia, Hx Chronic Renal Failure, Hx Dialysis, Hx Kidney Infection, Hx Kidney Stones, Hx Renal Disease, Other Problems/Disorders Musculoskeletal History: Reports: Hx Arthritis, Hx Rheumatoid Arthritis, Hx Fibromyalgia Denies: Hx Back Problems, Hx Bursitis, Hx Congenital Bone Abnormalities, Hx Osteoporosis Sensory History: Reports: Hx Contacts or Glasses Denies: Hx Cataracts, Hx Eye Injury, Hx Eye Prosthesis, Hx Glaucoma, Hx Legally Blind, Hx Macular Degeneration, Hx Vision Problem, Hx Deafness, Hx Hearing Aid, Hx Hearing Problem, Other Sensory Impairments Opthamlomology History: Reports: Hx Contacts or Glasses Denies: Hx Cataracts, Hx Eye Injury, Hx Eye Prosthesis, Hx Glaucoma, Hx Legally Blind, Hx Macular Degeneration, Hx Vision Problem, Other Sensory Impairments Neurological History: Reports: Hx Headaches, Hx Migraine Denies: Hx Dementia, Hx Developmental Delay, Hx Nerve Disease, Hx Seizures, Hx Spinal Cord Injury, Hx Transient Ischemic Attacks (TIA) Psychiatric History: Reports: Hx Anxiety, Hx Post Traumatic Stress Disorder Denies: Hx Attention Deficit Hyperactivity Disorder, Hx Eating Disorder, Hx Depression, Hx Panic Disorder, Hx Inpatient Treatment, Hx Community Mental Health Tx, Hx Schizophrenia, Hx Bipolar Disorder, Hx Suicide Attempt, Hx of Violent Episodes Against Others, Hx Substance Abuse, Other Psychiatric Issues/ Disorders - Cancer History Cancer Type, 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 2X BILATERAL KNEES-[place]. 2 C SECTIONS 1988/1990 [place]. BOWEL RESECTION 1996 [place]. 6 ABDOMINAL SURGIES BETWEEN [id number] OUT SCAR TISSUE. 3 ABDOMINAL SURGERIES 2000. BILATERAL BREAST TUMORS REMOVED. GALLBLADDER 1994 Hx Anesthesia Reactions: No - Immunization History Date of Tetanus Vaccine: Unk Date of Influenza Vaccine: Fall 2012 Immunizations Up to Date: Yes Infectious Disease History: No Infectious Disease History: Reports: Hx Shingles Denies: Hx Clostridium Difficile, Hx Hepatitis, Hx Human Immunodeficiency Virus (HIV), Hx of Known/Suspected MRSA, Hx Tuberculosis, Hx Known/Suspected VRE , Hx Known/Suspected VRSA, History Other Infectious Disease, Traveled Outside the [place] in Last 30 Days - Family History Known Family History: Positive: Other - Breast cancer - Social History Alcohol Use: None Substance Use Type: Reports: Prescribed Hx Tobacco Use: Yes Smoking Status (MU): Light Every Day Tobacco Smoker Type: Cigarettes Have You Smoked in the Last Year: Yes Physical Exam Vital Signs On Initial Exam: Initial Vitals Temp Pulse Resp BP Pulse Ox 97.8 F 73 18 167/85 97 01/06/18 13:05 01/06/18 13:05 01/06/18 13:05 01/06/18 13:05 01/06/18 13:05 Diagnostics - Vital Signs Vital Signs Temp Pulse Resp BP Pulse Ox 01/06/18 13:05 97.8 F 73 18 167/85 97 - Laboratory Lab Statement: Any lab studies that have been ordered have been reviewed, and results considered in the medical decision making process. Discharge - Discharge Plan Referrals: Becca Bailey NP [Primary Care Provider] -
[2018-01-06 14:59] LABS: Hematocrit 39 % (35-47); Mean Corpuscular HGB Conc 33 g/dl (31-36); Mean Corpuscular Hemoglobin 35 pg (27-31); Mean Corpuscular Volume 105 fL (80-97); Mean Platelet Volume 9.9 um3 (7.4-10.4); Platelet Count 185 10^3/ul (150-450); Red Blood Count 3.77 10^6/ul (4.00-5.40); Red Cell Distribution Width 18 % (10.5-15); White Blood Count 13.5 10^3/ul (3.5-10.8)
[2018-01-06 15:25] LABS: EGFR Non-African American 74.1 (>60)
--- NOTE | 2018-01-06 15:30 | ED ---
Neck Pain - HPI Summary HPI Summary: This is Shu beasley, documenting for attending Segun Yanes MD. This patient is a 47 year old F BIBA to [facility] from Dr. Bowden office accompanied by her with a chief complaint of neck and right shoulder pain that has worsened from baseline after multiple falls this morning. Pain is 8/10 in severity. reports multiple falls in the the past three weeks increasing in frequency. She states falls occur because her legs give out. reports 4-5 falls this morning beginning around 2:00 this morning. Patient additionally describes one of the falls this morning as LOC; she states it was dark as she fell and did not wake up til later in the morning. PMHx includes spinal stenosis, DDD, herniated and bulging cervical discs, and a pinched nerve. 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 patient takes 5-10 mg of Oxycodone 5X daily at baseline. I, Dr. Yanes personally performed the services described in this documentation as scribed in my presence and it is both accurate and complete. - History of Current Complaint Chief Complaint: EDWeakness Stated Complaint: NECK PAIN FROM [facility] Time Seen by Provider: 01/06/18 12:55 Hx Obtained From: Patient, Family/Grid Trimmer Onset/Duration Of Injury/Symptoms: Months - acute on chronic Mechanism Of Injury: Other - multiple falls Timing: Constant Onset/Duration: Worse Since - this morning Severity Initially: Moderate Severity Currently: Severe Pain Intensity: 8 Pain Scale Used: 0-10 Numeric Location: Discrete At: - neck and right shoulder Aggravating Factors: Movement Alleviating Factors: Nothing Associated Signs & Symptoms: Positive: Weakness, Paresthesia Related History: Previous Neck Injury - Allergies/Home Medications Allergies/Adverse Reactions: Allergies Allergy/AdvReac Type Severity Reaction Status Date / Time acetaminophen [From Tylenol] Allergy Unknown Verified 12/30/17 13:53 Reaction Details adalimumab Allergy Anaphylatic Verified 01/06/18 13:15 Shock adalimumab-adbm Allergy Anaphylatic Verified 01/06/18 13:15 Shock adalimumab-atto Allergy Anaphylatic Verified 01/06/18 13:15 Shock albuterol Allergy See Comment Verified 12/30/17 15:58 aspirin Allergy Unknown Verified 12/30/17 13:53 Reaction Details bee pollen Allergy Anaphylatic Verified 12/30/17 16:00 Shock bee venom protein (honey bee) Allergy Anaphylatic Verified 12/30/17 16:00 Shock digoxin Allergy Unknown Verified 12/30/17 16:00 Reaction Details etanercept Allergy Anaphylatic Verified 01/06/18 13:15 Shock etanercept-szzs Allergy Unknown Verified 12/30/17 16:01 Reaction Details guava Allergy Unknown Verified 12/30/17 15:58 Reaction Details hydrocortisone Allergy Facial Verified 12/30/17 16:02 [From Hydrocortone] Redness/Flushing ibuprofen Allergy Unknown Verified 12/30/17 16:01 Reaction Details melissa Allergy Unknown Verified 12/30/17 15:58 Reaction Details naproxen Allergy Unknown Verified 12/30/17 16:00 Reaction Details papaya Allergy Anaphylatic Verified 01/06/18 13:15 Shock Penicillins Allergy Anaphylatic Verified 01/06/18 13:15 Shock BEES Allergy Severe Anaphylatic Uncoded 12/30/17 13:53 Shock Home Medications: Home Medications Ketoconazole 2 % CREAM (NF) [Nizoral 2% CREAM (NF)] 1 applic TOPICAL DAILY PRN 01/06/18 [History Confirmed 01/06/18] Oxycodone TAB(NF) [Oxycodone HCl 10 MG] 10 mg PO .FIVE TIMES A DAY PRN 01/06/18 [History Confirmed 01/06/18] PMH/Surg Hx/FS Hx/Imm Hx Endocrine/Hematology History: Reports: Hx Thyroid Disease Denies: Hx Anticoagulant Therapy, Hx Diabetes, Hx Anemia, Hx Unexplained Bleeding Cardiovascular History: Reports: Hx Valvular Heart Disease - mitral valve prolapse, Other Cardiovascular Problems/Disorders - VALVE PROLAPSE Denies: Hx Aneurysm, Hx Angina, Hx Angioplasty, Hx Auto Implanted Cardiovert Defib, Hx Cardiac Arrest, Hx Cardiomegaly, Hx Congenital Heart Disease, Hx Congestive Heart Failure, Hx Coronary Artery Disease, Hx Deep Vein Thrombosis, Hx Embolism, Hx Hypercholesterolemia, Hx Hypotension, Hx Hypertension, Hx Pacemaker/ICD, Hx Peripheral Vascular Disease, Hx Rheumatic Fever, Hx Syncope Respiratory History: Reports: Hx Asthma, Hx Chronic Obstructive Pulmonary Disease (COPD), Hx Pneumonia, Other Respiratory Problems/Disorders - dx pneumonia rt lung 06/14 Denies: Hx Chronic Bronchitis, Hx Cystic Fibrosis, Hx Lung Cancer, Hx Pleural Effusion, Hx Pulmonary Edema, Hx Pulmonary Embolism, Hx Seasonal Allergies, Hx Sleep Apnea GI History: Reports: Hx Crohn's Disease, Hx Irritable Bowel, Other GI Disorders - gastro paresis/ Crohn's History: Denies: Hx Acute Renal Failure, Hx Benign Prostatic Hyperplasia, Hx Chronic Renal Failure, Hx Dialysis, Hx Kidney Infection, Hx Kidney Stones, Hx Renal Disease, Other Problems/Disorders Musculoskeletal History: Reports: Hx Arthritis, Hx Rheumatoid Arthritis, Hx Fibromyalgia Denies: Hx Back Problems, Hx Bursitis, Hx Congenital Bone Abnormalities, Hx Osteoporosis Sensory History: Reports: Hx Contacts or Glasses Denies: Hx Cataracts, Hx Eye Injury, Hx Eye Prosthesis, Hx Glaucoma, Hx Legally Blind, Hx Macular Degeneration, Hx Vision Problem, Hx Deafness, Hx Hearing Aid, Hx Hearing Problem, Other Sensory Impairments Opthamlomology History: Reports: Hx Contacts or Glasses Denies: Hx Cataracts, Hx Eye Injury, Hx Eye Prosthesis, Hx Glaucoma, Hx Legally Blind, Hx Macular Degeneration, Hx Vision Problem, Other Sensory Impairments Neurological History: Reports: Hx Headaches, Hx Migraine Denies: Hx Dementia, Hx Developmental Delay, Hx Nerve Disease, Hx Seizures, Hx Spinal Cord Injury, Hx Transient Ischemic Attacks (TIA) Psychiatric History: Reports: Hx Anxiety, Hx Post Traumatic Stress Disorder Denies: Hx Attention Deficit Hyperactivity Disorder, Hx Eating Disorder, Hx Depression, Hx Panic Disorder, Hx Inpatient Treatment, Hx Community Mental Health Tx, Hx Schizophrenia, Hx Bipolar Disorder, Hx Suicide Attempt, Hx of Violent Episodes Against Others, Hx Substance Abuse, Other Psychiatric Issues/ Disorders - Cancer History Cancer Type, 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 2X BILATERAL KNEES-[place]. 2 C SECTIONS 1988/1990 [place]. BOWEL RESECTION 1996 [place]. 6 ABDOMINAL SURGIES BETWEEN [id number] OUT SCAR TISSUE. 3 ABDOMINAL SURGERIES 2000. BILATERAL BREAST TUMORS REMOVED. GALLBLADDER 1994 Hx Anesthesia Reactions: No - Immunization History Date of Tetanus Vaccine: Unk Date of Influenza Vaccine: Fall 2012 Immunizations Up to Date: Yes Infectious Disease History: No Infectious Disease History: Reports: Hx Shingles Denies: Hx Clostridium Difficile, Hx Hepatitis, Hx Human Immunodeficiency Virus (HIV), Hx of Known/Suspected MRSA, Hx Tuberculosis, Hx Known/Suspected VRE , Hx Known/Suspected VRSA, History Other Infectious Disease, Traveled Outside the [place] in Last 30 Days - Family History Known Family History: Positive: Other - Breast cancer - Social History Alcohol Use: None Substance Use Type: Reports: Prescribed Hx Tobacco Use: Yes Smoking Status (MU): Light Every Day Tobacco Smoker Type: Cigarettes Have You Smoked in the Last Year: Yes Review of Systems Negative: Fever, Chills Negative: Erythema Negative: Sore Throat Negative: Chest Pain Negative: Shortness Of Breath, Cough Negative: Abdominal Pain, Vomiting, Diarrhea, Nausea Negative: dysuria, hematuria Positive: Myalgia - neck and right shoulder. Negative: Edema Neurological: Negative - dizziness Positive: Syncope All Other Systems Reviewed And Are Negative: Yes Physical Exam - Summary Physical Exam Summary: Constitutional: Well-developed, Well-nourished, Alert. (-) Distressed Skin: Warm, Dry HENT: Normocephalic; Atraumatic Eyes: Conjunctiva normal Neck: Musculoskeletal ROM normal neck. (-) JVD, (-) Stridor, (-) Tracheal deviation Cardio: Rhythm regular, rate normal, Heart sounds normal; Intact distal pulses; The pedal pulses are 2+ and symmetric. Radial pulses are 2+ and symmetric. (-) Murmur Pulmonary/Chest wall: Effort normal. (-) Respiratory distress, (-) Wheezes, (-) Rales Abd: Soft, (-) epigastric tenderness, (-) Distension, (-) Guarding, (-) Rebound Musculoskeletal: (-) Edema Pain with ROM of right shoulder; R Shoulder tender to palpation; Pain with ROM of neck; C-Spine collar is worn. Lymph: (-) Cervical adenopathy Neuro: Alert, Oriented x3, GCS 15 Psych: Mood and affect Normal, Patient is argumentative during history Triage Information Reviewed: Yes Vital Signs On Initial Exam: Initial Vitals Temp Pulse Resp BP Pulse Ox 97.8 F 73 18 167/85 97 01/06/18 13:05 01/06/18 13:05 01/06/18 13:05 01/06/18 13:05 01/06/18 13:05 Vital Signs Reviewed: Yes Diagnostics - Vital Signs Vital Signs Temp Pulse Resp BP Pulse Ox 01/06/18 13:05 97.8 F 73 18 167/85 97 - Laboratory Lab Results: Lab Results 01/06/18 01/06/18 Range/Units 14:48 14:48 WBC 13.5 H (3.5-10.8) 10^3/ul RBC 3.77 L (4.00-5.40) 10^6/ul Hgb 13.0 (12.0-16.0) g/dl Hct 39 (35-47) % MCV 105 H (80-97) fL MCH 35 H (27-31) pg MCHC 33 (31-36) g/dl RDW 18 H (10.5-15) % Plt Count 185 (150-450) 10^3/ul MPV 9.9 (7.4-10.4) um3 Neut % (Auto) Pending Lymph % (Auto) Pending Fergus % (Auto) Pending Eos % (Auto) Pending Baso % (Auto) Pending Absolute Neuts (auto) Pending Absolute Lymphs (auto) Pending Absolute Monos (auto) Pending Absolute Eos (auto) Pending Absolute Basos (auto) Pending Absolute Nucleated RBC Pending Nucleated RBC % Pending Lactic Acid 1.0 (0.5-2.0) mmol/L Result Diagrams: 01/06/18 14:48 01/06/18 14:48 Lab Statement: Any lab studies that have been ordered have been reviewed, and results considered in the medical decision making process. - Radiology CXR Radiology Interpretation Completed By: Radiologist - PROBABLE LEFT FIRST RIB ARTIFACT LESS LIKELY A LEFT APICAL LESION. SUGGEST FOLLOW-UP IMAGING OUTLINED ABOVE. MILD DIFFUSE INTERSTITIAL PROMINENCE. ED Physician has reviewed this report. R Shoulder XR Radiology Interpretation Completed By: Radiologist - No radiographic evidence for traumatic RIGHT shoulder injury. ED Physician has reviewed this report. - CT C-Spine CT CT Interpretation Completed By: Radiologist - No CT evidence for traumatic cervical spine injury. ED Physician has reviewed this report. Brain CT CT Interpretation Completed By: Radiologist - No CT evidence for traumatic brain injury or acute intracranial process. Normal exam. ED Physician has reviewed this report. - EKG 1433 Cardiac Rate: NL - 67 BPM EKG Rhythm: Sinus Rhythm EKG Interpretation: no STEMI Neck Course/Dx - Course Course Of Treatment: 47 year old F BIBA to [facility] from Dr. Bowden office accompanied by her with a chief complaint of neck and right shoulder pain that has worsened from baseline after multiple falls this morning. Pain is 8/10 in severity. reports multiple falls in the the past three weeks increasing in frequency. She states falls occur because her legs give out. reports 4-5 falls this morning beginning around 2:00 this morning. Patient additionally describes one of the falls this morning as LOC; she states it was dark as she fell and did not wake up til later in the morning. PMHx includes spinal stenosis, DDD, herniated and bulging cervical discs, and a pinched nerve. Patient is given IV fluids, Zofran, and Morphine. Brain CT reveals: No CT evidence for traumatic brain injury or acute intracranial process. A C-Spine CT reveals: No CT evidence for traumatic cervical spine injury. R Shoulder XR reveals: No radiographic evidence for traumatic RIGHT shoulder injury. A CXR reveals: PROBABLE LEFT FIRST RIB ARTIFACT LESS LIKELY A LEFT APICAL LESION. SUGGEST FOLLOW-UP IMAGING OUTLINED ABOVE. MILD DIFFUSE INTERSTITIAL PROMINENCE. Blood work and UA are unremarkable. AN EKG is unremarkable. Patient will be admitted for observation. - Diagnoses Provider Diagnoses: Frequent falls, Right shoulder pain, Syncope - Physician Notifications Discussed Care Of Patient With: Heaven Kamara - hospitalist Instructed by Provider To: Admit As Inpatient Discharge - Sign-Out/Discharge Documenting (check all that apply): Patient Departure - Discharge Plan Disposition: ADMITTED TO [facility]
[2018-01-06] MEDS ORDERED: NS 0.9% 1000 ML* 1,000 ML IV ONE (15:34)
--- NOTE | 2018-01-06 15:39 | RAD ---
Indication: Syncope; fall. Comparison: November 26, 2011 Technique: Noncontrast CT vertex of skull through foramen magnum. Report: The sulci, ventricles, and basal cisterns are normal for age. Garcia matter white matter differentiation is preserved without evidence for edema. No intra or extra axial hemorrhage is detected. Unremarkable visualized orbital contents. Negative for calvarial or skull base fracture. Negative for scalp hematoma. The visualized paranasal sinuses and mastoid air spaces are clear. IMPRESSION: #. No CT evidence for traumatic brain injury or acute intracranial process. Normal exam.
--- NOTE | 2018-01-06 15:47 | RAD ---
INDICATION: Neck pain post fall; syncopal episode. COMPARISON: December 30, 2017 TECHNIQUE: Multidetector CT images foramen magnum to lung apices without contrast. Multiplanar reformation. REPORT: Normal vertebral alignment accounting for exam positioning without spondylolisthesis or subluxation at any level. Negative for cervical vertebral body or posterior element fracture. Tiny ossicle at the cephalad margin of the dens is grossly unchanged compared with the head CT from 2012 without concern. Negative for paravertebral hematoma. Moderately severe C6-C7 disc space narrowing and mild dorsal disc osteophyte complex with resulting mild impression on the ventral margin of the thecal sac without change. The remaining disc levels are unremarkable. IMPRESSION: #. No CT evidence for traumatic cervical spine injury.
[2018-01-06] MEDS ORDERED: Ondansetron TAB* 4 MG PO ONE (15:53)
[2018-01-06] MEDS ORDERED: Morphine INJ* 10 MG/ML 1 ML CARPUJECT IV ONE (15:53)
[2018-01-06] MEDS ORDERED: Ondansetron ODT TAB* 4 MG SL ONE (15:54)
--- NOTE | 2018-01-06 15:59 | RAD ---
Indication: RIGHT shoulder pain. Fall. Comparison: December 30, 2017 Technique: Internal rotation AP, external rotation Grashey, scapular Y, axillary views RIGHT shoulder Report: Negative for fracture. Normal acromioclavicular and glenohumeral joint alignment. Mild acromioclavicular joint osteophytosis. Unremarkable soft tissue contours. IMPRESSION: #. No radiographic evidence for traumatic RIGHT shoulder injury.
[2018-01-06 16:00] LABS: Urine Appearance Clear; Urine Blood Negative (Negative); Urine Color Yellow; Urine Ketones Negative (Negative); Urine Protein Negative (Negative); Urine Specific Gravity 1.018 (1.010-1.030); Urine Urobilinogen Negative (Negative)
--- NOTE | 2018-01-06 16:01 | RAD ---
INDICATION: Fall COMPARISON: Rib series June 06, 2016 TECHNIQUE: An AP seated examination obtained at 1427 hours is submitted. FINDINGS: Bones/Soft Tissues: There are no acute bony findings. Cardiomediastinal: The cardiomediastinal silhouette is normal. Lungs: There is an ill-defined opacity projecting over the left lung apex which may be related to the first rib although an underlying pulmonary parenchymal abnormality is not excluded. Initially, either PA and lateral chest images are recommended or a CT examination is recommended to exclude a left upper lobe mass. The pulmonary interstitium is mildly prominent. Pleura: There are no pleural effusions. Other: None IMPRESSION: PROBABLE LEFT FIRST RIB ARTIFACT LESS LIKELY A LEFT APICAL LESION. SUGGEST FOLLOW-UP IMAGING OUTLINED ABOVE. MILD DIFFUSE INTERSTITIAL PROMINENCE.
[2018-01-06 16:21] LABS: ABS Basophils 0.3 10^3/ul (0-0.2); ABS Neutrophils 6.6 10^3/ul (1.5-7.7); ABS Neutrophils 6.9 10^3/ul (1.5-7.7); Monocytes % 4 % (0-7)
[2018-01-06] MEDS ORDERED: Morphine VIAL* 10 MG/ML 1 ML VIAL ONE (16:24)
[2018-01-06] MEDS ORDERED: Morphine VIAL* 10 MG/ML 1 ML VIAL IV ONE (16:27)
[2018-01-06] MEDS ORDERED: Dexamethasone IV* 4 MG/ML 1 ML (4 MG) IM ONE ×2 (18:28→23:00)
[2018-01-06] MEDS ORDERED: HYDROmorphone INJ* 2 MG/ML CARPUJECT SYRINGE IV SLOW PU PRN (18:33)
[2018-01-06] MEDS ORDERED: diPHENhydraMINE IV* 50 MG/ML 1 ml VIAL (BENADRYL) IV PRN (18:35)
[2018-01-06] MEDS ORDERED: TIZANIDINE 2 MG PO PRN (18:37)
[2018-01-06] MEDS ORDERED: Ipratropium 0.5MG/2.5ML NEB* 0.5 MG/2.5 ML NEB.SOLN INH PRN (18:37)
[2018-01-06] MEDS ORDERED: Levalbuterol 1.25MG/0.5ML NEB INH PRN (18:37)
[2018-01-06] MEDS ORDERED: Dicyclomine CAP* 10 MG PO PRN (18:37)
[2018-01-06] MEDS ORDERED: Montelukast Sodium TAB* 10 MG PO PRN (18:37)
[2018-01-06] MEDS ORDERED: diPHENhydraMINE IV* 50 MG/ML 1 ml VIAL (BENADRYL) ONE (18:51)
[2018-01-06] MEDS ORDERED: Dexamethasone IV* 4 MG/ML 1 ML (4 MG) ONE (18:51)
[2018-01-06] MEDS ORDERED: HYDROmorphone INJ* 2 MG/ML CARPUJECT SYRINGE ONE (18:51)
[2018-01-06] MEDS ORDERED: Diazepam TAB(*) 5 MG PO ONE (18:57)
[2018-01-06] MEDS ORDERED: Mouth Piece, Nicotine* 1 EACH CARTRIDGE INH PRN (19:29)
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
[2018-01-06] MEDS: Omeprazole CAP* 20 MG PO SCH (22:50)
[2018-01-06] MEDS: Topiramate TAB(*) 100 MG PO SCH (22:50)
[2018-01-06] MEDS: Gabapentin CAP(*) 300 MG PO SCH (22:50)
[2018-01-06] MEDS: Acyclovir* 400 MG TAB PO SCH (22:51)
[2018-01-06] MEDS: Bethanechol TAB* 25 MG PO SCH (22:52)
[2018-01-06] MEDS: Heparin VIAL(*) 5000 UNITS/ML VIAL (FIVE THOUSAND) SUBCUT SCH (22:53)
[2018-01-06] MEDS ORDERED: Dexamethasone IV* 4 MG/ML 1 ML (4 MG) IV SLOW PU ONE (23:00)
[2018-01-06] MEDS: HYDROmorphone INJ* 0.5 MG/0.5 ML SYRINGE IV SLOW PU PRN (23:08)
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
[2018-01-07] MEDS: PTO: Aclidinium POWDER MDI(NF) INH SCH ×3 (01:10→21:23)
[2018-01-07] MEDS: Mouth Piece, Nicotine* 1 EACH CARTRIDGE INH PRN (03:22)
[2018-01-07] MEDS: Nicotine Inhaler* 10 MG AMP INH PRN (03:22)
[2018-01-07] MEDS: HYDROmorphone INJ* 0.5 MG/0.5 ML SYRINGE IV SLOW PU PRN ×4 (04:22→23:03)
[2018-01-07 05:42] LABS: ABS Basophils 0 10^3/ul (0-0.2); ABS Eosinophils 0.1 10^3/ul (0-0.6); ABS Lymphocytes 2.7 10^3/ul (1.0-4.8); ABS Monocytes 0.8 10^3/ul (0-0.8); ABS Neutrophils 4.7 10^3/ul (1.5-7.7); ABS Nucleated RBC 0 10^3/ul; Eosinophil % 1.6 % (0-6); Hematocrit 37 % (35-47); Hemoglobin 12.3 g/dl (12.0-16.0); Lymphocyte % 32.1 % (25-47); Mean Corpuscular HGB Conc 33 g/dl (31-36); Mean Corpuscular Hemoglobin 35 pg (27-31); Mean Corpuscular Volume 106 fL (80-97); Mean Platelet Volume 9.7 um3 (7.4-10.4); Nucleated Red Blood Cells % 0.1; Platelet Count 161 10^3/ul (150-450); Red Blood Count 3.52 10^6/ul (4.00-5.40); Red Cell Distribution Width 19 % (10.5-15); White Blood Count 8.4 10^3/ul (3.5-10.8)
[2018-01-07 05:58] LABS: EGFR Non-African American 80.9 (>60)
[2018-01-07] MEDS: Levothyroxine TAB* 25 MCG TAB PO SCH (06:28)
--- NOTE | 2018-01-07 07:02 | RAD ---
INDICATION: Fall COMPARISON: Abdominal radiograph dated November 26, 2011 TECHNIQUE: Supine and upright views of the abdomen were obtained. FINDINGS: Is a large amount of stool overlying the length of the colon without pathologic dilatation. The small bowel and colon appear nondistended. No free intraperitoneal air is seen. No grossly abnormal or pathologic appearing calcifications are noted. Visualized bones are within normal limits for the patient's age. Surgical clips are noted overlying the gallbladder fossa. IMPRESSION: There is a large amount of stool overlying the length of the colon. Please correlate to signs and symptoms of constipation.
--- NOTE | 2018-01-07 07:20 | RAD ---
INDICATION: Leg weakness resulting in falls COMPARISON: None TECHNIQUE: Coronal emergency man, sagittal T1, inversion recovery, T2, and axial T1, T2 images were acquired. FINDINGS: The spinal cord terminates at the L1 level. There are no intrinsic abnormalities of the visualized cord. The lower thoracic and lumbar vertebrae are normally aligned. Vertebral body height is adequately maintained and bony signal is within normal limits. On the sagittal view images the intervertebral discs maintain appropriate T2 signal and adequate maintenance of height. Axial view images: Less otherwise specified below there is no significant central canal stenosis or neural foraminal stenosis. T12-L1:There is no significant central canal or neural foraminal stenoses. L1-L2: There is no significant central canal or neural foraminal stenoses. L2-L3: There is no significant central canal or neural foraminal stenoses. L3-L4: Mild broad-based disc protrusion combining with facet arthropathy and thickening of ligamentum flavum to cause a very mild degree of bilateral neural foraminal stenosis. L4-L5: Mild broad-based disc protrusion combining with facet arthropathy and thickening and infolding of the ligamentum flavum to cause a mild degree of neural foraminal stenosis. L5-S1: Broad-based disc protrusion extending into the neural foramina or severely in the left than the right combines with thickening of the ligamentum flavum to cause mild bilateral neural foraminal stenosis. IMPRESSION: Degenerative disc disease from L3 to S1 causing mild multilevel neural foraminal stenosis.
--- NOTE | 2018-01-07 07:31 | RAD ---
INDICATION: Leg weakness COMPARISON: None TECHNIQUE: Coronal T2, sagittal T1, inversion recovery, T2, and axial T1, T2, and gradient echo images were acquired. FINDINGS: The sella and craniocervical junction appear unremarkable. There are no intrinsic abnormalities of the cord. The cervical vertebrae are normally aligned. The atlantodental interval is normal. Axial view images: Less otherwise specified below there is no significant central canal stenosis or neural foraminal stenosis. C2-C3: Mild broad-based disc protrusion abutting the ventral spinal cord without yielding significant central canal or neural foraminal stenosis. C3-C4: There is no significant central canal or neural foraminal stenoses. C4-C5: There is no significant central canal or neural foraminal stenoses. C5-C6: There is no significant central canal or neural foraminal stenoses. C6-C7: Broad-based disc protrusion extending into the bilateral neural foramina combines with facet and uncovertebral hypertrophy to cause moderate central canal stenosis, moderate to severe left and severe right neural foraminal stenosis. There is a small degree of distortion of the left of midline ventral spinal cord. C7-T1: There is no significant central canal or neural foraminal stenoses. IMPRESSION: Bulging C6/C7 intervertebral disc causing central canal and bilateral neural foraminal stenoses and compressing the ventral spinal cord.
[2018-01-07] MEDS: Omeprazole CAP* 20 MG PO SCH ×2 (08:17→17:12)
[2018-01-07] MEDS: Bethanechol TAB* 25 MG PO SCH ×4 (08:17→21:24)
[2018-01-07] MEDS: Acyclovir* 400 MG TAB PO SCH ×3 (09:56→21:21)
[2018-01-07] MEDS: Folic Acid TAB* 1 MG PO SCH (09:56)
[2018-01-07] MEDS: BuPROPion XL* 150 MG TAB.XL PO SCH (09:56)
[2018-01-07] MEDS: Gabapentin CAP(*) 300 MG PO SCH ×4 (09:56→21:21)
[2018-01-07] MEDS: Heparin VIAL(*) 5000 UNITS/ML VIAL (FIVE THOUSAND) SUBCUT SCH ×2 (09:58→21:24)
[2018-01-07] MEDS: CMC: Leflunomide (NF) 10 MG TAB PO SCH (09:58)
[2018-01-07] MEDS: Topiramate TAB(*) 100 MG PO SCH ×2 (09:59→21:21)
[2018-01-07] MEDS: Diazepam TAB(*) 5 MG PO PRN (09:59)
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
[2018-01-07] MEDS: Carisoprodol TAB* 350 MG PO PRN ×2 (11:36→23:02)
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
[2018-01-08] MEDS: HYDROmorphone INJ* 0.5 MG/0.5 ML SYRINGE IV SLOW PU PRN ×5 (03:41→21:28)
[2018-01-08] MEDS: Levothyroxine TAB* 25 MCG TAB PO SCH (05:32)
[2018-01-08] MEDS: Gabapentin CAP(*) 300 MG PO SCH ×4 (07:36→20:16)
[2018-01-08] MEDS: Topiramate TAB(*) 100 MG PO SCH ×2 (07:36→20:14)
[2018-01-08] MEDS: Omeprazole CAP* 20 MG PO SCH ×2 (07:37→16:22)
[2018-01-08] MEDS: Carisoprodol TAB* 350 MG PO PRN ×2 (07:37→17:30)
[2018-01-08] MEDS: Acyclovir* 400 MG TAB PO SCH ×3 (07:37→20:15)
[2018-01-08] MEDS: Bethanechol TAB* 25 MG PO SCH ×4 (07:38→20:15)
[2018-01-08] MEDS: BuPROPion XL* 150 MG TAB.XL PO SCH (07:38)
[2018-01-08] MEDS: Folic Acid TAB* 1 MG PO SCH (07:38)
[2018-01-08] MEDS: CMC: Leflunomide (NF) 10 MG TAB PO SCH (07:39)
[2018-01-08] MEDS: PTO: Budesonide Flexhaler 180 (NF) 180 MCG/ACT MDI INH PRN (07:40)
[2018-01-08] MEDS: PTO: Aclidinium POWDER MDI(NF) INH SCH ×2 (07:41→20:13)
[2018-01-08] MEDS: Heparin VIAL(*) 5000 UNITS/ML VIAL (FIVE THOUSAND) SUBCUT SCH ×2 (07:42→20:14)
[2018-01-08] MEDS ORDERED: LORazepam INJ* 2 MG/ML 1 ML VIAL IV PUSH ONE (09:04)
[2018-01-08] MEDS: Diazepam TAB(*) 5 MG PO PRN ×2 (12:19→20:16)
--- NOTE | 2018-01-08 12:46 | RAD ---
Indication: Right sided weakness, difficulty walking. Image sequences: Sagittal T1, T2, STIR, axial T2-weighted images of the thoracic spine were obtained. The vertebral bodies appear normal in height. Normal bone marrow signal is noted. The thoracic spinal cord demonstrates no evidence of abnormal signal. No evidence of any disc protrusion is identified. All the intervertebral foramen appear patent. Disc spaces all appear to be well preserved. No pleural fluid is identified. IMPRESSION: Unremarkable thoracic spine MRI.
[2018-01-08] MEDS ORDERED: Ondansetron ODT TAB* 4 MG ONE (13:06)
--- NOTE | 2018-01-08 13:38 | RAD ---
Indication: Right upper extremity weakness. Image Sequences: Sagittal and axial T1, axial T2, FLAIR, diffusion and susceptibility weighted images of the brain were obtained. Ventricular structures are midline. No midline shift is noted. There is central and cortical atrophy noted. There is no evidence of restriction of diffusion. No evidence of vasogenic edema is noted. The FLAIR images demonstrate punctate areas of signal abnormality in the right centrum semiovale which is nonspecific. No evidence of susceptibility artifact from residual hemosiderin is noted. Mastoid air cells and paranasal sinuses are otherwise unremarkable. The orbits are otherwise unremarkable. IMPRESSION: Nonspecific deep white matter signal abnormality in the right centrum semiovale. Otherwise no evidence of acute changes are noted.
[2018-01-08] MEDS: Mouth Piece, Nicotine* 1 EACH CARTRIDGE INH PRN (14:20)
[2018-01-08] MEDS: Nicotine Inhaler* 10 MG AMP INH PRN (14:20)
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
[2018-01-08] MEDS: Ondansetron ODT TAB* 4 MG PO SCH ×2 (16:22→20:15)
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
[2018-01-09] MEDS: HYDROmorphone INJ* 0.5 MG/0.5 ML SYRINGE IV SLOW PU PRN ×3 (03:00→17:30)
[2018-01-09] MEDS: Levothyroxine TAB* 25 MCG TAB PO SCH (05:30)
[2018-01-09] MEDS: Bethanechol TAB* 25 MG PO SCH ×4 (07:02→21:04)
[2018-01-09] MEDS: Ondansetron ODT TAB* 4 MG PO SCH ×4 (07:02→21:12)
[2018-01-09] MEDS: Omeprazole CAP* 20 MG PO SCH ×2 (07:02→16:48)
[2018-01-09] MEDS ORDERED: HYDROmorphone INJ* 0.5 MG/0.5 ML SYRINGE IV SLOW PU PRN (09:32)
[2018-01-09] MEDS ORDERED: oxyCODONE TAB* 5 MG TAB PO PRN (09:34)
[2018-01-09] MEDS: Folic Acid TAB* 1 MG PO SCH (10:16)
[2018-01-09] MEDS: Acyclovir* 400 MG TAB PO SCH ×3 (10:16→21:04)
[2018-01-09] MEDS: Gabapentin CAP(*) 300 MG PO SCH ×4 (10:16→21:05)
[2018-01-09] MEDS: BuPROPion XL* 150 MG TAB.XL PO SCH (10:16)
[2018-01-09] MEDS: Topiramate TAB(*) 100 MG PO SCH ×2 (10:16→21:04)
[2018-01-09] MEDS: PTO: Aclidinium POWDER MDI(NF) INH SCH ×2 (10:16→22:14)
[2018-01-09] MEDS: Heparin VIAL(*) 5000 UNITS/ML VIAL (FIVE THOUSAND) SUBCUT SCH ×2 (10:17→21:16)
[2018-01-09] MEDS: CMC: Leflunomide (NF) 10 MG TAB PO SCH (10:17)
[2018-01-09] MEDS: Carisoprodol TAB* 350 MG PO PRN (10:21)
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
[2018-01-09] MEDS: oxyCODONE TAB* 5 MG TAB PO PRN ×2 (13:17→21:09)
[2018-01-09] MEDS: Carisoprodol TAB* 350 MG PO SCH ×2 (13:19→21:05)
[2018-01-09] MEDS: Nicotine Inhaler* 10 MG AMP INH PRN (15:20)
[2018-01-09] MEDS: Diazepam TAB(*) 5 MG PO PRN (15:27)
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
[2018-01-09] MEDS ORDERED: Docusate CAP* 100 MG PO PRN (19:51)
[2018-01-09] MEDS ORDERED: Senna TAB PO PRN (19:51)
[2018-01-09] MEDS ORDERED: Polyethylene Glycol 3350* 17 GM PACKET PO PRN (19:51)
[2018-01-09] MEDS: Nystatin TOP POWDER* 15 GM BTL TOPICAL SCH (21:15)
[2018-01-10] MEDS: HYDROmorphone INJ* 0.5 MG/0.5 ML SYRINGE IV SLOW PU PRN ×3 (02:23→14:27)
[2018-01-10] MEDS: oxyCODONE TAB* 5 MG TAB PO PRN ×2 (05:20→12:11)
[2018-01-10] MEDS: Levothyroxine TAB* 25 MCG TAB PO SCH (05:20)
[2018-01-10] MEDS: Topiramate TAB(*) 100 MG PO SCH (08:41)
[2018-01-10] MEDS: Bethanechol TAB* 25 MG PO SCH ×3 (08:41→18:40)
[2018-01-10] MEDS: Gabapentin CAP(*) 300 MG PO SCH ×3 (08:42→17:47)
[2018-01-10] MEDS: Omeprazole CAP* 20 MG PO SCH ×2 (08:43→18:40)
[2018-01-10] MEDS: Folic Acid TAB* 1 MG PO SCH (08:43)
[2018-01-10] MEDS: Acyclovir* 400 MG TAB PO SCH ×2 (08:43→14:28)
[2018-01-10] MEDS: Ondansetron ODT TAB* 4 MG PO SCH ×3 (08:43→18:41)
[2018-01-10] MEDS: Carisoprodol TAB* 350 MG PO SCH ×2 (08:44→14:28)
[2018-01-10] MEDS: Heparin VIAL(*) 5000 UNITS/ML VIAL (FIVE THOUSAND) SUBCUT SCH (08:46)
[2018-01-10] MEDS: BuPROPion XL* 150 MG TAB.XL PO SCH (08:55)
[2018-01-10] MEDS: Nicotine Inhaler* 10 MG AMP INH PRN (08:56)
[2018-01-10] MEDS: Nystatin TOP POWDER* 15 GM BTL TOPICAL SCH ×2 (08:57→14:31)
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
[2018-01-10] MEDS: PTO: Aclidinium POWDER MDI(NF) INH SCH (09:04)
[2018-01-10] MEDS: PTO: Budesonide Flexhaler 180 (NF) 180 MCG/ACT MDI INH PRN (09:05)
[2018-01-10] MEDS: CMC: Leflunomide (NF) 10 MG TAB PO SCH (09:42)
[2018-01-10] MEDS: Diazepam TAB(*) 5 MG PO PRN (09:48)
--- NOTE | 2018-01-10 12:08 | RAD ---
INDICATION: Right shoulder pain. COMPARISON: Comparison is made with a prior x-ray study of the right shoulder from January 06, 2018. TECHNIQUE: Axial, sagittal and coronal T1 and T2-weighted images of the right shoulder were obtained. The exam is limited due to motion artifact. FINDINGS: The bones are in normal alignment and signal intensity. No fracture is seen. There are mild hypertrophic changes present around the acromioclavicular joint and a small lateral acromial spur which would predispose to subacromial impingement. There is mild increased signal intensity in the distal supraspinatus tendon suggestive of mild tendinosis or a mild partial tear. There is mild to moderate supraspinatus muscle atrophy. No other rotator cuff tendon abnormalities are noted. The long head of the biceps tendon and glenoid labrum appear intact. IMPRESSION: 1. LIMITED STUDY DUE TO MOTION ARTIFACT. 2. MILD INCREASED SIGNAL INTENSITY IN THE DISTAL SUPRASPINATUS TENDON SUGGESTIVE OF MILD TENDINOSIS OR A MILD PARTIAL TEAR.
--- NOTE | 2018-01-10 12:26 | PN ---
Progress Note - Progress Note Date of Service: 01/10/18 SOAP: Subjective: Pt is doing well. Continued shoulder pain with no improvement. Most pain is periscapular. + N/T in hands wtih radiating pain from neck, denies F/C, CP/SOB Objective: 47 y/o WDWN F NAD, A&Ox3 RUE- skin intact, active FF to 45 passive past this with pain, diffuse tenderness to light palpation of shoulder and periscapular region, + 2 radial pulse, full ROM elbow, wrist and hand, decreased sensation distally Vital Signs Temp Pulse Resp BP Pulse Ox 98.2 F 78 18 140/64 99 01/10/18 07:36 01/10/18 07:36 01/10/18 12:11 01/10/18 07:36 01/10/18 07:36 Assessment: Right shoulder pain d/t radiculopathy vs impingement Plan: Appreciate hospitalist and neurosurgery management PT to work on gentle ROM as tolerated Recommend inpatient or outpatient MRI Right shoulder to include scapula for further workup if pain not improved
[2018-01-10] MEDS ORDERED: Capsaicin 0.025% CREAM* 60 GM TOPICAL ONE (14:40)
[2018-01-10 16:39] VITALS: BP 129/56
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
[2018-01-10] MEDS ORDERED: Capsaicin 0.025% CREAM* 60 GM TOPICAL SCH (21:00)
--- NOTE | 2018-01-10 21:42 | PN ---
CC: Dr. Campo; Dr. Gardner* NEUROLOGY FOLLOWUP NOTE: DATE OF FOLLOWUP: 01/10/18. REFERRING PHYSICIAN: Dr. Campo. LOCATION: She is an inpatient, room 350. CHIEF COMPLAINT: Neck pain, arm pain, arm weakness. INTERVAL HISTORY: Since Dr. Lopez saw Ms. Thompson on 01/08/18, she continues with neck pain radiating to the right arm. She states it comes down to the scapula and lateral arm, and then down to her forearm all the way to the hand. She states the right arm muscles going to spasm diffusely. She described she has had chronic pain for which she was treated as an outpatient with opioid analgesics and muscle relaxant attributed to osteoarthritis. MEDICATIONS: Reviewed and she is on: 1. Zovirax 400 mg p.o. t.i.d. 2. Urecholine 25 mg p.o. 4 times a day. 3. Bupropion XL 300 mg p.o. q.a.m. 4. Soma 350 mg p.o. t.i.d. 5. Diazepam 5 mg p.o. b.i.d. p.r.n. anxiety. 6. Folic acid 1 mg p.o. daily. 7. Gabapentin 600 mg p.o. 4 times a day. 8. Subcutaneous heparin 5000 units q.12 hours. 9. Dilaudid 1 mg IV q.6 hours p.r.n. pain. 10. Arava 20 mg p.o. daily. 11. Levothyroxine 25 mcg p.o. daily. 12. Omeprazole 20 mg p.o. b.i.d. 13. Ondansetron 8 mg p.o. daily. 14. Oxycodone 10 mg p.o. 5 times per day p.r.n. pain. 15. Topiramate 100 mg p.o. b.i.d. PHYSICAL EXAMINATION: On exam, she is well-nourished and well hydrated. Temperature 98.0 orally, blood pressure 152/78, heart rate in the 80s and regular, respiratory rate is 16, and oxygen saturation is 98% on room air. Neurological Exam: Pupils are equal and reactive from 3 to 2 mm. There is no Shukri's syndrome. Facial musculature is symmetric. Speech is clear. Facial sensation is reported as less to light touch in the right cheek than the left. Facial sensation to vibration is reported less on the right forehead than the left. Temperature sensation is reported symmetrical on the face. Extremities: Sensation to light touch is reported as absent below the elbow in the right arm. It is normal in the left hand. Vibration is reported as subjectively less in the right hand than the left, but thresholds are symmetrical. Vibration in the legs is intact. Temperature sensation is reported as diminished in the right hand relative to the left. Temperature sensation in the legs is reported as symmetric. Motor exam reveals diffuse breakaway weakness in the right upper extremity proximally and distally. She cannot elevate the right shoulder above the horizontal, complains of pain. Passive elevation of the right arm by myself results in pain near the shoulder as well. In the lower extremities, there is diffuse breakaway weakness without complaints of pain. She has normal strength in the left arm and leg. Reflexes are normal, active, and symmetric at triceps, biceps, brachioradialis, grade 1 at the knees, grade 2 at the ankles. Plantar responses are flexor bilaterally. She is alert and oriented, and reasonably good historian. Memory seems relatively preserved and language is fluent. LABORATORY DATA: Includes the MRI of the cervical spine and thoracic spine, which were reviewed. Thoracic MRI is reported as normal. Cervical spine MRI reveals disk bulging without cord compression at C6-7. There is left more than right neuroforaminal stenosis at the C6-7 level. MRI of the brain is interpreted as normal other than nonspecific white matter change in the deep white matter in the right centrum semiovale. IMPRESSION: Functional exam and chronic pain. She does have some cervical disk disease. It is hard to assess whether or not there is any actual deficits due to the breakaway weakness and non anatomical sensory deficits. My understanding in speaking with Dr. Sexton earlier today is she is to be discharged for further outpatient evaluation. If elective diagnostic studies are desired, those could be obtained as an outpatient. [id number]/[facility]PS #: [id number] [facility]ITAL[facility]as[facility]
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
== END 2018-01-10 19:10 | disposition home or self-care (01) | DRG 552 ==
LOC: ED 12:49 → SSU 18:26 → EEVIPCON 18:26 → OBSVTOIN 01-08 09:45
PROVIDERS: ADMIT Hospitalist; ATTEND Internal Medicine
DX: M50.023 Cervical disc disorder at C6-C7 level with myelopathy (principal); G95.29 Other cord compression; K50.90 Crohn's disease, unspecified, without complications; M48.02 Spinal stenosis, cervical region; M79.602 Pain in left arm; M06.9 Rheumatoid arthritis, unspecified; M79.7 Fibromyalgia; J44.9 Chronic obstructive pulmonary disease, unspecified; F43.10 Post-traumatic stress disorder, unspecified; E03.9 Hypothyroidism, unspecified; F32.9 Major depressive disorder, single episode, unspecified; F17.210 Nicotine dependence, cigarettes, uncomplicated; F41.9 Anxiety disorder, unspecified; M21.371 Foot drop, right foot; M48.061 Spinal stenosis, lumbar region without neurogenic claudication; M51.16 Intervertebral disc disorders with radiculopathy, lumbar region; M48.07 Spinal stenosis, lumbosacral region; W10.8XXA Fall (on) (from) other stairs and steps, initial encounter; K21.9 Gastro-esophageal reflux disease without esophagitis; G89.29 Other chronic pain; D72.829 Elevated white blood cell count, unspecified; M19.90 Unspecified osteoarthritis, unspecified site; M25.511 Pain in right shoulder; Z91.410 Personal history of adult physical and sexual abuse; Z88.6 Allergy status to analgesic agent; Z91.030 Bee allergy status; Z88.0 Allergy status to penicillin; Z88.8 Allergy status to other drugs, medicaments and biological substances; Z91.018 Allergy to other foods; Z80.3 Family history of malignant neoplasm of breast; Y92.009 Unspecified place in unspecified non-institutional (private) residence as the place of occurrence of the external cause; Z79.891 Long term (current) use of opiate analgesic; Z79.899 Other long term (current) drug therapy
CPT/HCPCS: 36415; 70450; 70551; 71045; 72125; 72141; 72146; 72148; 74019; 80053; 81003; 82550; 83605; 83735; 84443; 84484; 85025; 85060; 86308; 87641; 93005; 99284; A9270-GY; G0378; J1100; J1170; J1200; J1644; J2060; J2270